=== PATIENT | male | born 1950 | race Caucasian/White ===

== ENCOUNTER 2020-02-22 04:15 | Inpatient (IN) ==
[2020-02-22] MEDS ORDERED: ASPIRIN 81 MG CHEW PO STA (04:27)
[2020-02-22] MEDS ORDERED: NITROGLYCERIN SL 0.4 MG/TAB TAB SL STA (04:27)
[2020-02-22] MEDS ORDERED: ASPIRIN CHEW 324 MG ONE (04:27)
--- NOTE | 2020-02-22 04:33 | Emergency Department Note ---
Impression & Plan Acute ST elevation myocardial infarction (STEMI) of inferior wall ED Provider Note Name: RENNY RAY Age: 69 Sex: M Arrives Via: Walk-In Informant: Patient, ED Provider: Price Thompson MD Chief Complaint: Chest Pain Impression: Acute ST Elevation Myocardial Infarction (STEMI) of inferior wall Medical Decision Making: Pleasant 69 yr old male with history COPD/DLP and family CAD history arrives with acute chest pain constant last few hours though intermittent the last few weeks. EKG with STEMI inferior. CXR unremarkable and pulses good. Unlikely Dissection and no DVT/PE risks. Heart alert called on EKG being obtained. Patient with HTN on arrival though after single nitro precipituous drop in BP, thus given just faint remaining pain further nitro held. ASA 324mg chew given. Patient stable, no distress throughout remainder ED stay. Hospitalist and Interventionalist evaluated patient and he was taken to manager laboratory for further management. Prior Medical Record and Triage/Nursing Notes reviewed by Me Additional history obtained from chart Differentials:Cardiac ischemia, aortic dissection, pulmonary embolism, pneumothorax, pneumonia, pericarditis, myocarditis, esophageal rupture, GERD, cholecystitis, pancreatitis, musculoskeletal, as well as other pathologies. Vital Signs: reviewed and remarkable for HTN Interventions: ASA 324mg PO, SLNTG x 1 Labs:Reviewed and remarkable for troponin elevation Imaging:X ray results are stated below per my interpretation: Chest: 1 view: No infiltrate, no effusion, normal cardiac border. Emphysemia EKG:Per My Interpretation: Indication Chest Pain: NSR 77 bpm, qtc 402. STEMI inferior. No ectopy. Compared to previous 10/10/18 STEMI is new. Cardiac/Tele Monitoring: Cardiac Monitoring: An Order was placed for continuous cardiac monitoring. The monitor shows a rate of 70 with a normal sinus rhythm. Consults:Dr Littlejohn, Dr Walker Plan: Disposition:Hospitalization. Condition: Fair Prescriptions:none PDMP: n/a History of Present Illness:69 yr old male with COPD, DLP, and smoking history arrives for evaluation of chest pain. Intermittent chest pain over last 2 weeks with exertion. Last 12 hours increasing intermittent without exertion. Worsening and not going away last few hours and came to ed. Substernal pressure like. Radiates bilateral neck. No back pain, abdominal pain, syncope, sob, palpitations, nausea, vomiting, leg swelling nor other symptoms. No medications prior to arrival. Exertion makes worse, rest makes better until this morning. No history CAD. Stress test 2 years ago reports negative. Mother and Brother with history heart disease. Patient denies PE/DVT risks. No trauma nor injuries. ROS: See above HPI for pertinent positives & negatives. A total of 10 systems reviewed and were otherwise negative. Past Medical History:COPD, DLP Past Surgical History:None Family History:Mother/Brother CAD, Father Cancer. 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 EYES: No scleral icterus, unremarkable pupils. ENT: Mucous membranes moist, no nasal congestion. NECK: No masses appreciated, nomeningismus, trachea is midline. RESPIRATORY: No dyspnea. Clear to auscultation and equal bilaterally. No wheeze, no rhonchi. CARDIOVASCULAR: Regular rate and rhythm.No murmurs, rubs, gallops appreciated. GASTROINTESTINAL: Abdomen soft, non-tender, no peritonitis.Bowel sounds positive.No masses appreciated. BACK: No midline tenderness, no CVA tenderness EXTREMITIES: Normal motion all extremities, no cyanosis, no edema. NEUROLOGIC: Alert and oriented, no acute motor or sensory deficits, no focal wea kness, cranial nerves grossly intact. SKIN: No rash, no jaundice, no diaphoresis. PSYCH: Appropriate GCS: 15 ED Course: Times/Reassessments: stable, pain to a 2/10 after nitro though BP dropped significantly Critical Care: I have personally spent 35 minutes of critical care time in the direct management of this patient. STEMI requiring Heart Alert activation and transfer to manager laboratory. This was a life/limb threatening event. This 35 minutes is in excess of all separately billable procedures. Price Thompson MD Past Med/Surg History Medical History (Updated 02/22/20 @ 04:56 by Price Thompson MD) COPD (chronic obstructive pulmonary disease) No pertinent family history Surgical History No pertinent past surgical history Family History Other No pertinent family history Social History Smoking Status: Current every day smoker Preferred Language: [place] Island[place] Communication Ability: Effective Visual Impairment: No Limitations Hearing Ability: Normal marital status: marital status details: Current Living Situation: Family Feels Safe at Home: Yes Allergies Allergies Allergy/AdvReac Type Severity Reaction Status Date / Time No Known Allergies Allergy Unverified 10/10/18 12:03 Home Meds Home Medications Medication Instructions Recorded Confirmed budesonide-formoterol [Symbicort] 1 puff INHALATION HS 10/10/18 10/10/18 ipratropium-albuterol [Combivent 1 puff INHALATION TID 10/10/18 10/10/18 Respimat] tiotropium bromide [Spiriva 2 puff INHALATION HS 10/10/18 10/10/18 Respimat] Results & Data (ED) Vital Signs Vital Signs - 24 hr 02/22/20 04:20 02/22/20 04:23 02/22/20 04:34 Temperature 36.7 C Temperature Source Oral Pulse Rate 78 79 Pulse Rate from SpO2 Sensor 77 Pulse Rhythm Regular Respiratory Rate 16 17 Respiratory Effort / Characteristics Non-Labored Spontaneous Respiratory Depth Normal Blood Pressure 172/96 H 172/96 H 122/79 Blood Pressure Mean 121 123 93 Pulse Oximetry 98 92 Oxygen Delivery Method Room Air Oxygen Flow Rate Sepsis Recent Fever Within 48 Hours No Sepsis New/Unexplained Change in Mental Status No Sepsis Action Taken by Nursing No Action Required Oxygen Flow Rate - Titration 94 02/22/20 04:38 02/22/20 04:40 02/22/20 04:50 Temperature Temperature Source Pulse Rate 79 80 74 Pulse Rate from SpO2 Sensor 78 78 74 Pulse Rhythm Respiratory Rate 25 H 18 17 Respiratory Effort / Characteristics Respiratory Depth Blood Pressure 111/79 111/69 127/82 Blood Pressure Mean 89 78 92 Pulse Oximetry 93 95 96 Oxygen Delivery Method Nasal Cannula Nasal Cannula Nasal Cannula Oxygen Flow Rate 2 2 2 Sepsis Recent Fever Within 48 Hours Sepsis New/Unexplained Change in Mental Status Sepsis Action Taken by Nursing Oxygen Flow Rate - Titration Laboratory Data Result diagrams: 02/22/20 04:38 02/22/20 04:38 Lab Results 02/22/20 02/22/20 02/22/20 Range/Units 04:38 04:38 04:38 WBC 10.01 (4.8-10.8) K/uL RBC 5.01 (4.7-6.1) M/uL Hgb 16.5 (14.0-18.0) g/dL Hct 48.8 (42-52) % MCV 97.4 (80-100) fL MCH 32.9 (25-34) pg MCHC 33.8 (32-36) g/dL RDW Std Deviation 49.7 H (36.4-46.3) fL RDW Coeff of Best 14.0 (11.5-14.5) % Plt Count 227 (130-400) K/uL MPV 11.1 H (7.4-10.4) fL Immature Gran % (Auto) 0.2 % Neut % (Auto) 76.7 % Lymph % (Auto) 13.9 % Bibb % (Auto) 7.7 % Eos % (Auto) 1.1 % Baso % (Auto) 0.4 % Neut # (Auto) 7.68 H (1.4-6.5) K/uL Lymph # (Auto) 1.39 (1.2-3.4) K/uL Bibb # (Auto) 0.77 H (0.11-0.59) K/uL Eos # (Auto) 0.11 (0-0.5) K/uL Baso # (Auto) 0.04 (0-0.2) K/uL Immature Gran # (Auto) 0.02 (0.00-0.02) K/uL PT 10.3 (9.0-12.0) Seconds INR 1.0 (0.9-1.1) APTT 27.2 (21.0-31.0) Seconds PTT Ratio 1.0 Sodium 142 (136-145) mmol/L Potassium 3.9 (3.5-5.1) mmol/L Chloride 110 H (98-107) mmol/L Carbon Dioxide 27 (21-32) mmol/L Anion Gap 5.0 (3-11) BUN 19 H (7-18) mg/dl Creatinine 1.10 (0.6-1.4) mg/dl Est Cr Clr Drug Dosing 55.1 ml/min Est GFR ( Amer) 79.0 Est GFR (Non-Af Amer) 68.1 BUN/Creatinine Ratio 17.4 (10-20) Glucose 123 H (70-99) mg/dl Calcium 9.0 (8.5-10.1) mg/dl Magnesium 2.5 H (1.8-2.4) mg/dl Total Bilirubin 0.2 (0.2-1) mg/dl Direct Bilirubin < 0.1 (0-0.2) mg/dl AST 21 (15-37) U/L ALT 33 (12-78) U/L Alkaline Phosphatase 142 H (45-117) U/L Troponin I 0.326 H* (0-0.045) ng/ml Total Protein 7.9 (6.4-8.2) gm/dl Albumin 4.1 (3.4-5.0) gm/dl Administered Medications Discontinued Medications Aspirin (Aspirin Chew 324 Mg) Confirm Administered Dose 324 mg .ROUTE .STK-MED ONE Stop: 02/22/20 04:28 Last Admin: 02/22/20 04:40 Dose: Not Given Documented by: [id number] Aspirin (Aspirin 81 Mg Chew) 324 mg PO NOW STA Stop: 02/22/20 04:28 Last Admin: 02/22/20 04:40 Dose: 324 mg Documented by: [id number] Atropine Sulfate (Atropine Sulfate 0.1 Mg/Ml 10ml Syr) Confirm Administered Dose 1 mg IV .STK-MED ONE Stop: 02/22/20 05:18 Last Admin: 02/22/20 05:40 Dose: 0.5 mg Documented by: [id number] Eptifibatide (Eptifibatide 2 Mg/Ml 10 Ml Vial (Film Or Tape Librarian Use Only)) Confirm Ad ministered Dose 20 mg IV .STK-MED ONE Stop: 02/22/20 05:25 Last Admin: 02/22/20 05:40 Dose: 6.2 ml Documented by: [id number] Eptifibatide (Eptifibatide 0.75 Mg/Ml 75mg Vial (Film Or Tape Librarian Use Only)) Confirm Administered Dose 75 mg .ROUTE .STK-MED ONE Stop: 02/22/20 05:28 Last Increment: 02/22/20 05:43 Dose: 10.7 mg Documented by: [id number] Eptifibatide (Eptifibatide 2 Mg/Ml 10 Ml Vial (Film Or Tape Librarian Use Only)) Confirm Administered Dose 20 mg IV .STK-MED ONE Stop: 02/22/20 05:35 Last Admin: 02/22/20 05:40 Dose: 6.2 ml Documented by: [id number] Fentanyl Citrate (Fentanyl Citrate 100 Mcg/2 Ml Vial) Confirm Administered Dose 100 mcg .ROUTE .STK-MED ONE Stop: 02/22/20 04:52 Last Increment: 02/22/20 05:44 Dose: 50 mcg Documented by: [id number] Heparin Sodium (Porcine) (Heparin (Porcine) 1000 Unit/Ml 10 Ml (Film Or Tape Librarian Use Only)) Confirm Administered Dose 10,000 units .ROUTE .STK-MED ONE Stop: 02/22/20 04:52 Last Admin: 02/22/20 05:44 Dose: 8,000 units Documented by: [id number] Heparin Sodium/Sodium Chloride (Heparin In Nss Infusion 1000 Unit/500 Ml (2 U/Ml) Bag) Confirm Administered Dose 3,000 units IV .STK-MED ONE Stop: 02/22/20 04:53 Last Admin: 02/22/20 05:39 Dose: 3,000 units Documented by: [id number] Midazolam HCl (Midazolam Hcl 1 Mg/Ml 2ml Vial) Confirm Administered Dose 2 mg .ROUTE .STK-MED ONE Stop: 02/22/20 04:53 Last Admin: 02/22/20 05:44 Dose: 2 mg Documented by: [id number] Nicardipine HCl (Nicardipine Hcl Inj 2.5 Mg/Ml 10 Ml Amp) Confirm Administered Dose 25 mg .ROUTE .STK-MED ONE Stop: 02/22/20 04:52 Last Admin: 02/22/20 05:39 Dose: 25 mg Documented by: [id number] Nitroglycerin (Nitroglycerin Sl 0.4 Mg/Tab Tab) 0.4 mg SL NOW STA Stop: 02/22/20 04:28 Last Admin: 02/22/20 04:40 Dose: 0.4 mg Documented by: [id number] Nitroglycerin/Dextrose (Nitroglycerin/D5w 100mcg/Ml 20ml Syr) Confirm Administered Dose 2,000 mcg .ROUTE .STK-MED ONE Stop: 02/22/20 04:53 Last Admin: 02/22/20 05:40 Dose: 2,000 mcg Documented by: [id number] Discharge Plan Visit Data Chief Complaint: Cardiac Assessment Stated Complaint: CHEST PAIN ED Provider: Price Thompson Discharge Problem: Acute ST elevation myocardial infarction (STEMI) of inferior wall Patient Disposition: Still a Patient Discharge Instructions Interventions: ED Discharge Assessment Last Done: 02/22/20 04:59
[2020-02-22 04:47] LABS: Basophils # (auto) 0.04 K/uL (0-0.2); Basophils % (auto) 0.4 %; Eosinophils # (auto) 0.11 K/uL (0-0.5); Eosinophils % (auto) 1.1 %; Hematocrit (blood only) 48.8 % (42-52); Hemoglobin 16.5 g/dL (14.0-18.0); Immature Granulocytes # (auto) 0.02 K/uL (0.00-0.02); Immature Granulocytes % (auto) 0.2 %; Lymphocytes # (auto) 1.39 K/uL (1.2-3.4); Lymphocytes % (auto) 13.9 %; Mean Corpuscular Hemoglobin 32.9 pg (25-34); Mean Corpuscular Hgb Conc 33.8 g/dL (32-36); Mean Corpuscular Volume 97.4 fL (80-100); Mean Platelet Volume 11.1 fL (7.4-10.4); Monocytes # (auto) 0.77 K/uL (0.11-0.59); Monocytes % (auto) 7.7 %; Neutrophils # (auto) 7.68 K/uL (1.4-6.5); Neutrophils % (auto) 76.7 %; Platelet Count 227 K/uL (130-400); RDW Standard Deviation 49.7 fL (36.4-46.3); Red Blood Count 5.01 M/uL (4.7-6.1); White Blood Count 10.01 K/uL (4.8-10.8)
[2020-02-22] MEDS ORDERED: fentaNYL citrate 100 MCG/2 ML VIAL ONE ×2 (04:51→05:47)
[2020-02-22] MEDS ORDERED: niCARdipine HCL INJ 2.5 MG/ML 10 ML AMP ONE (04:51)
[2020-02-22] MEDS ORDERED: HEPARIN (PORCINE) 1000 UNIT/ML 10 ML (CATH LAB USE ONLY) ONE (04:51)
[2020-02-22] MEDS ORDERED: NITROGLYCERIN/D5W 100MCG/ML 20ML SYR ONE (04:52)
[2020-02-22] MEDS ORDERED: MIDAZOLAM HCL 1 MG/ML 2ML VIAL ONE (04:52)
[2020-02-22 05:04] LABS: Alanine Aminotransferase 33 U/L (12-78); Albumin Level 4.1 gm/dl (3.4-5.0); Aspartate Aminotransferase 21 U/L (15-37); BUN Creatinine Ratio 17.4 (10-20); Bilirubin Direct < 0.1 mg/dl (0-0.2); Blood Urea Nitrogen 19 mg/dl (7-18); Carbon Dioxide 27 mmol/L (21-32); Chloride 110 mmol/L (98-107); Creatinine Clr Calc Pharmacy 55.1 ml/min; Est GFR (Non-African American) 68.1; Glucose 123 mg/dl (70-99); Magnesium 2.5 mg/dl (1.8-2.4); Potassium 3.9 mmol/L (3.5-5.1); Sodium 142 mmol/L (136-145)
[2020-02-22 05:05] LABS: Partial Thromboplastin Time 27.2 Seconds (21.0-31.0); Prothrombin Time 10.3 Seconds (9.0-12.0)
--- NOTE | 2020-02-22 05:06 | Pre Anesthesia Assessment ---
Date of Service February 22, 2020 Pre Sedation Assessment Vital Signs Temp Pulse Resp BP Pulse Ox 02/22/20 04:50 74 17 127/82 96 02/22/20 04:40 80 18 111/69 95 02/22/20 04:38 79 25 H 111/79 93 02/22/20 04:34 122/79 02/22/20 04:23 79 17 172/96 H 92 02/22/20 04:20 98.1 F 78 16 172/96 H 98 Cardiovascular RRR, no murmur, no edema Respiratory normal respiratory effort, lungs clear to auscultation Pre-Sedation Airway Assessment Smoking Status: Current every day smoker Hx Sleep Apnea: No Hx Difficult Intubation: No Short, Thick Neck: No Thyromental Distance: > or= 3.5 Finger Breadths Oral Cavity: + WNL Mallampati Class: III ASA: ASA4 Procedure Planning Contraindications for Sedation: none Current Medications Reviewed: Yes Notes The planned sedation has been discussed with the patient. Informed Consent was obtained. I have identified the patient, determined the appropriateness of sedation and have assessed the patient immediately prior to the procedure. All medicine(s) and interventions are by my order.
--- NOTE | 2020-02-22 05:08 | Cardiology Consultation ---
Date of Consultation February 22, 2020 Assessment & Plan (1) Acute ST elevation myocardial infarction (STEMI) of inferior wall: Presentation consistent with inferior STEMI and recommend proceeding with emergent cardiac catheterization and likely primary PCI. No apparent contraindications to procedure. Discussed risks, benefits, alternatives of procedure with patient and they are willing to proceed. Further recommendations pending findings of coronary angiography. History of Present Illness Attending Physician: Yusuf Walker MD History of Present Illness 69-year-old man here with acute chest pain and ECG concerning for acute NH. Patient seen emergently in the ED after heart alert activated upon arrival. No prior cardiac history. Cardiac risk factors include longstanding tobacco abuse, family history of coronary artery disease. Other medical issues include COPD. Chest pain began approximately 4 PM, about 12 hours prior to arrival. Describes substernal chest pain radiating to left arm that is been persistent since that time and preventing him from sleeping. Denies similar symptoms in the past. Chest pain at time of arrival 07/24. Hemodynamically stable. EKG showed inferior ST elevations. 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 Allergies Allergy/AdvReac Type Severity Reaction Status Date / Time No Known Allergies Allergy Unverified 10/10/18 12:03 Home Medications Home Medications Medication Instructions Recorded Confirmed Type budesonide-formoterol [Symbicort] 1 puff INHALATION HS 10/10/18 10/10/18 History ipratropium-albuterol [Combivent 1 puff INHALATION TID 10/10/18 10/10/18 History Respimat] tiotropium bromide [Spiriva 2 puff INHALATION HS 10/10/18 10/10/18 History Respimat] Patient History Medical History (Updated 02/22/20 @ 04:56 by Price Thompson MD) COPD (chronic obstructive pulmonary disease) No pertinent family history Surgical History No pertinent past surgical history Family History Other No pertinent family history Social History Smoking Status: Current every day smoker Preferred Language: Turkmen Communication Ability: Effective Visual Impairment: No Limitations Hearing Ability: Normal marital status: marital status details: Current Living Situation: Family Feels Safe at Home: Yes Review of Systems Review of Systems: Not obtained the setting of emergent situation Physical Exam Physical Exam: General: Uncomfortable, no acute distress HEENT: Sclerae anicteric, mucous membranes moist Lungs: Clear to auscultation bilaterally Cardiac: Regular rate and rhythm, no murmurs. Abdomen: Soft, nontender, nondistended, positive bowel sounds. Extremities: Warm, well perfused, no edema. 2+ radial pulses Skin: No rashes or lesions. Neuro: Nonfocal Psych: Alert orient x3, normal affect and mood Results & Data ([facility]) Vital Signs (Past 12 Hours) Vital Signs Temp Pulse Resp BP Pulse Ox 02/22/20 04:50 74 17 127/82 96 02/22/20 04:40 80 18 111/69 95 02/22/20 04:38 79 25 H 111/79 93 02/22/20 04:34 122/79 02/22/20 04:23 79 17 172/96 H 92 02/22/20 04:20 98.1 F 78 16 172/96 H 98 PG Care Time/CCT Total # of Minutes Spent Total Time Spent with Patient: Total time spent is greater than 50% in coordination of care (as documented) at patient's floor/unit and/or counseling p atient: Coding Level of Care Code 79352 Inpt Consult Level [address] elevation myocardial infarction (STEMI) of inferior wall I21.19
[2020-02-22] MEDS ORDERED: ATROPINE SULFATE 0.1 MG/ML 10ML SYR IV ONE (05:17)
[2020-02-22] MEDS ORDERED: EPTIFIBATIDE 2 MG/ML 10 ML VIAL (CATH LAB USE ONLY) IV ONE ×2 (05:24→05:34)
[2020-02-22] MEDS ORDERED: EPTIFIBATIDE 0.75 MG/ML 75MG VIAL (CATH LAB USE ONLY) ONE (05:27)
[2020-02-22 05:35] LABS: Alkaline Phosphatase 142 U/L (45-117); Bilirubin,Total 0.2 mg/dl (0.2-1); Total Protein 7.9 gm/dl (6.4-8.2); Troponin I 0.326 ng/ml (0-0.045)
--- NOTE | 2020-02-22 05:36 | History & Physical Report ---
Date of Service February 22, 2020 Assessment & Plan (1) Cigarette smoker: Inferior STEMI Status post cath and 1 MARIA GUADALUPE to RCA Will start atorvastatin, ASA, Aime inhibitor and beta jose as tolerated Got atropine during procedure will monitor bradycardia and hypotension given inferior AR as well as other post infarction arrhythmias in ICU for now Will trend troponins, possibly follow up cath for left circumflex non culprit lesion as outpatient or later in this admission Will need to be counseled on cardiovascular risk factors and lifestyle changes COPD and Tobacco Abuse Continuing home breo ellipta, ipratropium bromide scheduled and albuterol as needed for COPD Patient somewhat restricted on exam but is at his baseline in terms of breathing per patient IMportant to encourage complete abstinence form smoking both for prevention of worsening COPD and CAD DVT PPx: lovenox F/E/N: Heart Healthy Diet Dispo: ICU s/p catheterization Full code (2) S/P drug eluting coronary stent placement: (3) S/P PTCA (percutaneous transluminal coronary angioplasty): (4) Acute ST elevation myocardial infarction (STEMI) of inferior wall: (5) Admitted to intensive care unit: (6) COPD (chronic obstructive pulmonary disease): History of Present Illness Chief Complaint: Chest Pain Primary Care Provider: NO PCP Altagracia Johnathan Burroughs is a 69 year old man with a past medical history significant for COPD not on home O2, dyslipidemia, and a family history of CAD brother and mother both with AR's in their sixties, who presented with substernal chest pain moving into left arm. 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 He attributed this to gas pain but it was becoming more and more frequent and this morning it was not going away. He called the [facility] and they recommended that he present to the emergency department. On presentation to ED patient found to have vitals WNL, ECG showing textbook acute inferior AR with large ST elevations is II III and aVF, Lab work significant for troponin of .326. A heart alert was called and patient was taken to the laboratory immunologist with Dr. 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 1 MARIA GUADALUPE was placed in RCA. Also with moderate stenosis of Left circumflex artery but appeared to be non culprit lesion and was not stented. Patient was admitted to ICU for further monitoring. Allergies Allergy/AdvReac Type Severity Reaction Status Date / Time No Known Allergies Allergy Unverified 10/10/18 12:03 Home Medications Home Medications Medication Instructions Recorded Confirmed Type budesonide-formoterol [Symbicort] 1 puff INHALATION HS 10/10/18 10/10/18 History ipratropium-albuterol [Combivent 1 puff INHALATION TID 10/10/18 10/10/18 History Respimat] tiotropium bromide [Spiriva 2 puff INHALATION HS 10/10/18 10/10/18 History Respimat] Past Med/Surg History Medical History COPD (chronic obstructive pulmonary disease) No pertinent family history Surgical History No pertinent past surgical history Family History Other No pertinent family history Social History Smoking Status: Current every day smoker Cigarettes Per Day: 15; Hx Alcohol Use: No Hx Substance Use: No Preferred Language: Syriac Communication Ability: Effective Visual Impairment: No Limitations Hearing Ability: Normal Policy Writer Sales Required: No Beliefs That Will Affect Care: None marital status: marital status details: Current Living Situation: Spouse Other Information That Helps Us Care for You: No Feels Safe at Home: Yes and No Is there a partner from a previous relationship who is making you feel unsafe now?: No Any Concerns about Your Family Situation: No Would You Like to Speak to Someone About Your Situation: No Safety Concerns: Feels Safe At This Time Assistive Devices: None Review of Systems Review of Systems: All systems reviewed & are unremarkable except as noted in HPI & below Physical Exam Constitutional: WD/WN, vitals as above Eyes: PERRL, conjunctivae normal, anicteric sclerae ENMT: external ear and nose normal, oropharynx normal Respiratory: normal respiratory effort, lungs clear to auscultation Cardiovascular: RRR, no murmur, no edema Gastrointestinal (Abdomen): normal bowel sounds, soft, nontender, no hepatosplenomegaly Skin: Pressure bandage in place around right wrist site of access for Catheterization, missing distal portion of right second digit Results & Data Results & Data ([facility]) Vital Signs (Past 12 Hours) Vital Signs Temp Pulse Resp BP Pulse Ox 02/22/20 04:50 74 17 127/82 96 02/22/20 04:40 80 18 111/69 95 02/22/20 04:38 79 25 H 111/79 93 02/22/20 04:34 122/79 02/22/20 04:23 79 17 172/96 H 92 02/22/20 04:20 36.7 C 78 16 172/96 H 98 Critical Care Time Critical Care Time: Yes Total Critical Care Time: 40 Total critical care time 40 minutes Supervising Physician Co-Signing Physician Notes Attending addendum: I have physically seen this patient, have supervised the medical residents activ ities, and agree with the H&P unless as otherwise noted. Assessment and Plan: Inferior wall STEMI/heart alert- Taken to emergency catheterization, with 1 MARIA GUADALUPE to RCA. Admitted to intensive care unit post-cath Start high intensity atorvastatin, aspirin, AIME inhibitor and beta-jose per interventional cardiology COPD/tobacco use disorder- Cessation counseling Continue home Breo ellipta, and DuoNebs as needed Remaining orders and notations as noted
[2020-02-22] MEDS ORDERED: TICAGRELOR 90 MG TAB PO ONE (05:47)
[2020-02-22] MEDS ORDERED: ACETAMINOPHEN 325 MG TAB PO PRN (06:00)
[2020-02-22] MEDS ORDERED: EPTIFIBATIDE 75 MG/100 ML VIAL IV SCH (06:00)
[2020-02-22] MEDS ORDERED: ONDANSETRON INJ 2 MG/ML 2 ML VIAL IV PRN (06:00)
[2020-02-22] MEDS ORDERED: EPTIFIBATIDE BOLUS/DRIP IV STA (06:00)
[2020-02-22] MEDS ORDERED: NITROGLYCERIN SL 0.4 MG/TAB TAB SL PRN (06:00)
[2020-02-22] MEDS ORDERED: ICU PROTOCOL FOR HYPERGLYCEMIA PRN ×2 (06:00→06:06)
[2020-02-22] MEDS ORDERED: SODIUM CHLORIDE 0.9% 1000ML 1,000 ML IV SCH (06:00)
--- NOTE | 2020-02-22 06:00 | Post Anesthesia Assessment ---
Date of Service February 22, 2020 Post Sedation Assessment Vital Signs Temp Pulse Resp BP Pulse Ox 02/22/20 04:50 74 17 127/82 96 02/22/20 04:40 80 18 111/69 95 02/22/20 04:38 79 25 H 111/79 93 02/22/20 04:34 122/79 02/22/20 04:23 79 17 172/96 H 92 02/22/20 04:20 98.1 F 78 16 172/96 H 98 Recovery Score Activity: Moves 4 extremities Respiration: Deep Breath/Cough Circulation: +/-20% PreAnes Value Consciousness: Fully Awake Oxygen Saturation: O2 needed for >90% Discharge Sedation Level of Care: Fast Track Phase II Post Sedation Plan On clinical assessment, the patient appears to have tolerated the sedation without complications. Patient is recovering as anticipated. Patient will continue to be monitored by nursing and may be discharged when sedation discharge criteria are met per below protocol. Upon Completions of procedure up to 15 minutes continue every 5 minute vital signs and the P.A.R. score; then discharge to a Phase I or Fast Track to Phase II per the following guidelines: * Discharge Patient to appropriate Phase II area if PAR is 8 or greater or return to pre- procedure baseline. The post - procedure orders will be as directed. * If PAR score is less than 8 or not return to pre-procedure baseline then patient will follow Phase I monitoring till PAR is reached for Phase II. The Phase I may be done in procedure room or may call to secure a Phase I area. * If naloxone or flumazenil are used for reversal, hold in Phase I for continued monitoring from when last reversal dose was given for a minimum of 60 minutes or longer pending the nurse and/or physician discretion of patient condition before discharge to Phase II. Please call the Sedation Physician to re-evaluate and complete post-note for discharge to Phase II area. Do NOT discharge from procedure sedation or Phase 1 until post- sedation evaluation note is complete by procedure /sedation MD Sedation Discharge Instructions to be given to the patient at discharge to home.
--- NOTE | 2020-02-22 06:18 | Cardiac Catheterization ---
[facility] Data: Controls Project Engineer Cardiac Status Clinical evaluation leading to the procedure CAD Presenation: STEMI Anginal Classification: CCS IV Cardiogenic Shock within 24 Hours: No Cardiac Arrest within 24 Hours: No Imaging Studies Past 6 Months: Yes Stress Studies Past 6 Months: No Diagnostic Physicians Name: Yusuf Walker MD Status: Emergency Closure Device Percutaneous Entry Location: Radial Closure Device: Radial Band Recommendations: PCI without planned CABG PCI Indication: Immediate PCI for STEMI First Noted: First EKG Lesion Segment Name: mid RCA Culprit Artery: Yes Stenosis Prior to Rx (%): 100 Chronic Total Occlusion: No IVUS: No FFR: No Pre-Procedure AILYN Flow: 0 Previously Treated Lesion: No Lesion Complexity: Non-High/Non-C Lesion Length (mm): 33 Thrombus Present: Yes Bifurcation Lesion: No Guidewire Across Lesion: Stenosis Post-Procedure (%): 0 Post-Procedure AILYN Flow: 3 Devices(s) Deployed: Yes Yes Intraprocedure Events Significant Disection: No Perforation: No Cardiac Cath Procedure Full Procedure Date February 22, 2020 Pre-Procedure Diagnosis Pre-Procedure Diagnosis: STEMI AUC Score AUC Score: 9 Post-Procedure Diagnosis Post-Procedure Diagnosis: Severe CAD, Successful PCI and Normal Intracardiac Pressures Procedure(s) Performed Procedure(s) Performed: Coronary Angiography, Left Heart Cath and Drug Eluting Stent Senior Nurse Manager Yusuf Walker MD News Gathering Technician(s) Venus Estimated Blood Loss Estimated Blood Loss: 15 Medication(s) Medication(s): Fentanyl, Heparin, Integrilin, Lidocaine 1%, Nicardipine, Nitroglycerin and Versed Medication(s): Ticagrelor Summary of Findings Indication: STEMI/Heart Alert Access: 6Fr Right radial artery Catheters: IKari 3.5 guide, pigtail Findings: LM -medium caliber, angiographically normal LAD -medium caliber vessel, proximal luminal irregularities, 20 to 30% mid stenosis at takeoff of second diagonal. Distal luminal regularities 60% apex. Medium caliber second diagonal without significant disease. Circumflex -medium caliber, 70% mid segment stenosis. Medium caliber OM 2 without significant disease RCA -dominant, calcified, 30 to 40% proximal, diffuse 40%/ectatic disease in the midsegment prior to 100% latemid 100% acute on chronic occlusion. Distal vessel partially fills via uejz-pq-exuit collaterals. LVEDP -18 -- PCI -- Antithrombotic therapy: Heparin, ticagrelor Procedure: RCA cannulated with IKari 3.5 guide Finished Yarn Examiner 50 wire passed across lesion into distal vessel Mid RCA lesion predilated with 2.5 compliant balloon Dilated lesion stented with 3.5 x 38 mm Vamsi drug-eluting stent Transient hypotension and bradycardia treated with fluid bolus, atropine Residual ST elevations, chest discomfort and started on IC/IV Integrilin Stent post-dilated with 3.75 noncompliant balloon IC vasodilators administered for spasm Post procedure AILYN 3 flow, stent well expanded with minimal residual stenosis and no apparent cardiac complications. Arterial Closure: TR band Summary: 1. Inferior STEMI/100% acute on chronic mid RCA occlusion 2. Severe non-culprit coronary artery disease -70% mid circumflex 3. Normal intracardiac filling pressure 4. Successful PCI of mid to distal RCA with single drug-eluting stent (3.5 x 38 mm [place]; postdilated with 3.75 NC). Recommendations: Admit to ICU for continued monitoring Loaded with ticagrelor 180 mg in Controls Project Engineer Continue Integrilin infusion for 3 hours Continue dual-antiplatelet therapy for at least 1 year. Trend troponins until peak, Check Echo Uptitrate beta-jose/EVELINE as BP allows High-dose statin Consult cardiac Rehab Plan for staged PCI of mid circumflex later in hospitalization, likely tomorrow. Hemodynamics Rest Ao:: 126/66/94 Final Ao: 90/57/72 LV: 88/18 Recommendations Recommendations: PCI without planned CABG Specimens Specimens: None Radiation Exposure (mGy) 599 Contrast (mls) 90 Fluids (cc crystalloids) Fluids (cc crystalloids): 480 Drains Drains: none Anesthesia moderate Procedural Complication(s) None Disposition ICU I attest to the content of the Intraoperative Record and any orders documented therein. Any exceptions are noted below. [facility] Card Cath Procedure Codes Cardiac Catheterization Procedure 1: Cardiovascular Cath Procedures: 91105 Coronaries and LHC (+/-LV) Moderate Sedation Procedure 1: Sedation/Anesthesia: 10119 Mod Sedation by the same physician;Init15 Min Child Age 5 & Up Procedure 2: Sedation/Anesthesia: 87635 Mod Sedation by the same physician; Ea [id number] Minutes Stenting Procedure 1: Cardiovascular Stent Procedures: 24594 Perc transluminal revascularization of acute sub/total occl, aMI PG Care Time/CCT Total # of Minutes Spent Total Time Spent with Patient: Total time spent is greater than 50% in coordination of care (as documented) at patient's floor/unit and/or counseling patient:
--- NOTE | 2020-02-22 06:21 | Critical Care Consultation ---
Date of Consultation February 22, 2020 Assessment & Plan (1) Admitted to intensive care unit: Reason Critically Ill: 69-year-old male presenting with an acute inferior STEMI who is status post PTCA with MARIA GUADALUPE x1 to the RCA requiring close hemodynamic monitoring status post coronary intervention. NEURO - * CAM ICU: NEGATIVE CARDIAC/VASCULAR - * Acute Inferior STEMI s/p PTCA w/ DESx1 to the RCA: * Received IVF and atropine intraprocedurally. Monitor closely for any bradycardic/hypotensive episodes s/p RCA intervention. * 70% Mid cirx lesion noted. To be addressed later in hospital course. * AM Echo * Trend Trops * ASCVD Rx per typical. * Encourage smoking cessation. * EKG: NSR @ 77bpm. ST elevations inferiorly. QTc 402 ms. * Monitor on telemetry. RESPIRATORY - * COPD: * Will add on home treatments. * Encourage smoking cessation. * Supplemental O2 PRN. GI/NUTRITION - * AHA diet RENAL/LYTES - * No significant electrolyte derangements. - * No concerns at this time. ENDO - * No h/o DM or Thyroid Dz * BSGs per unit protocol. ISS --> gtt per unit policy. HEME - * Stable H&H * Monitor for s/s bleeding during Integrilin gtt. ID - * No concerns for infection at this time. LINES/IV ACCESS - * PIVs x2 DVT PROPHYLAXIS - * Hold on chemoprophylaxis s/p Brilinta/Integrilin gtt. * SCDs I have personally spent 32 minutes of critical care time in the direct management of this patient. This is a life/limb threatening event. This includes time spent evaluating patient, direct bedside care, chart review, placing orders, interpretation of diagnostic studies, discussion with consultants, patient, and family members, as well as other required patient management activities. This time is exclusive of all separately billable procedures, and teaching time and separate from and in addition to any other critical care service time. Thank you for allowing us to participate in the care of this patient. Please refer to my attending physician's documentation for any further recommendations. (2) Acute ST elevation myocardial infarction (STEMI) of inferior wall: (3) COPD (chronic obstructive pulmonary disease): (4) S/P PTCA (percutaneous transluminal coronary angioplasty): (5) S/P drug eluting coronary stent placement: (6) Cigarette smoker: Supervising Physician Co-Signing Physician Notes Patient seen and examined. EMR reviewed. Discussed with critical care MARTHA. Patient presented with ST elevation myocardial infarction was taken to the [facility] and had a drug-eluting stent placed to the mid RCA. He was admitted to the ICU post procedure. He did require 1 dose of atropine as well as some IV fluid s. He had an episode of chest discomfort this morning requiring additional IV nitro which resulted in. He has an additional lesion and will require a staged procedure before dismissal from the hospital. Continue his antiplatelet agents. He tolerated a low-dose beta-jose. Holding EVELINE inhibitor given his. Will allow him to use his home Combivent. He will need cardiac rehab after discharge. Discussed with ICU nurse and on multidisciplinary rounds as well as pharmacist. History of Present Illness Attending Physician: Yusuf Walker MD History of Present Illness Patient is a 69-year-old male with a significant past medical history of COPD and tobacco abuse who presented to the emergency department this morning with approximately 12-hour history of chest discomfort and dyspepsia. Upon arrival in the emergency department, the patient had an EKG performed which demonstrated an acute inferior STEMI. Heart alert was called and the patient was taken emergently to the catheterization suite. Patient was noted to have an acutely occluded 100% RCA which was successfully stented with a drug-eluting stent x1. Patient was also noted to have severe non-culprit 70% mid circumflex stenosis. Patient received fluids and atropine intra-procedurally secondary to hypotension and bradycardia. He is currently on Integrilin drip at this time. Upon evaluation in the ICU, the patient is awake, alert, and oriented. He denies any complaints of chest pain at this time rated his discomfort is 0/10. Patient denies any current headaches, dizziness, lightheadedness, vision changes, chest pain, palpitations, pleuritic pain, nausea, vomiting, or abdominal pain. Allergies Allergy/AdvReac Type Severity Reaction Status Date / Time No Known Allergies Allergy Unverified 10/10/18 12:03 Home Medications Home Medications Medication Instructions Recorded Confirmed Type budesonide-formoterol [Symbicort] 1 puff INHALATION HS 10/10/18 10/10/18 History ipratropium-albuterol [Combivent 1 puff INHALATION TID 10/10/18 10/10/18 History Respimat] tiotropium bromide [Spiriva 2 puff INHALATION HS 10/10/18 10/10/18 History Respimat] Patient History Medical History COPD (chronic obstructive pulmonary disease) No pertinent family history Surgical History No pertinent past surgical history Family History Other No pertinent family history Social History Smoking Status: Current every day smoker Cigarettes Per Day: 15; Hx Alcohol Use: No Hx Substance Use: No Preferred Language: Kazakh Communication Ability: Effective Visual Impairment: No Limitations Hearing Ability: Normal Grades 1 Through 6 Teacher Required: No Beliefs That Will Affect Care: None marital status: marital status details: Current Living Situation: Spouse Other Information That Helps Us Care for You: No Feels Safe at Home: Yes and No Is there a partner from a previous relationship who is making you feel unsafe now?: No Any Concerns about Your Family Situation: No Would You Like to Speak to Someone About Your Situation: No Safety Concerns: Feels Safe At This Time Assistive Devices: None Review of Systems Review of Systems: A complete 10 point review of systems was reviewed with the patient with pertinent positives and negatives as per history of present illness. All else were negative. Physical Exam Physical Exam: VITAL SIGNS - Vital signs and nursing notes were reviewed. GENERAL - 69-year-old male appearing his stated age who is in no acute distress. Communicates well with provider and answers questions appropriately. HEAD - NC/AT. EYES - PERRL with EOMI bilaterally. Sclera anicteric. EARS - No deformities of external structures noted on gross examination bilaterally. NOSE - Midline and without cyanosis. No epistaxis or purulent drainage noted. MOUTH/OROPHARYNX - Without perioral cyanosis. NECK - Neck with FROM. LUNGS - Chest wall symmetric without accessory muscle use, intercostals retractions, or central cyanosis. Normal vesicular breath sounds CTA B/L. No wheezes, rales, or rhonchi appreciated. CARDIAC - RRR with S1/S2. No murmur, rubs, or gallops appreciated. No reproducible tenderness to palpation appreciated over the anterior chest wall. ABDOMEN - Abdominal contour flat without pulsations or visible masses. BS normoactive all four quadrants. No tenderness, palpable masses, hepatosplenomegaly, or ascites noted. EXTREMITIES - No clubbing or peripheral cyanosis. No pretibial edema present. +3/5 radial and dorsalis pedis pulses palpated throughout. +5/5 strength noted in UE/LE bilaterally. NEUROLOGIC - Cranial nerves II through XII grossly intact. Sensory intact to light touch throughout. PSYCH - A&Ox3 and cooperates fully with examiner. Pt is very pleasant and interacts well with examiner. Results & Data Results & Data ([facility]) Vital Signs (Past 12 Hours) Vital Signs Temp Pulse Resp BP Pulse Ox 02/22/20 04:50 74 17 127/82 96 02/22/20 04:40 80 18 111/69 95 02/22/20 04:38 79 25 H 111/79 93 02/22/20 04:34 122/79 02/22/20 04:23 79 17 172/96 H 92 02/22/20 04:20 36.7 C 78 16 172/96 H 98 Coding Level of Care Code Critical Care 1st 30-74 mins Diagnoses Admitted to intensive care unit Z78.[address] elevation myocardial infarction (STEMI) of inferior wall I21.19 COPD (chronic obstructive pulmonary disease) J44.9 S/P PTCA (percutaneous transluminal coronary angioplasty) Z98.61 S/P drug eluting coronary stent placement Z95.5 Cigarette smoker F17.210 Time Spent (min) 32
[2020-02-22] MEDS ORDERED: ALBUTEROL HFA 8 GM INHALER INH SCH (07:00)
[2020-02-22] MEDS ORDERED: IPRATROPIUM BROMIDE HFA INHALER INH SCH (07:00)
--- NOTE | 2020-02-22 07:55 | XRay Report ---
XR chest 1V portable CLINICAL HISTORY: Atypical chest pain COMPARISON STUDY: No previous studies for comparison. FINDINGS: The patient appears hyperinflated. The heart is normal in size. There is no failure. There is no focal pulmonary consolidation. There are no pleural effusions. Advanced arthritic changes are p resent in the right shoulder.[ IMPRESSION: Hyperinflation. No acute findings. ACT 112: Negative or not required by law. Electronically signed by: Freddie Brian M.D. 02/22/2020 7:54 AM
[2020-02-22] MEDS: ATORVASTATIN 40 MG TAB PO SCH (08:05)
[2020-02-22] MEDS: METOPROLOL TARTRATE 25 MG TAB PO SCH ×2 (08:05→20:20)
[2020-02-22] MEDS ORDERED: ASPIRIN 81 MG ECTAB PO SCH (09:00)
[2020-02-22] MEDS ORDERED: MoRPHine SULFATE 2 MG/ML CARP IV PRN (09:36)
[2020-02-22] MEDS ORDERED: MoRPHine SULFATE 2 MG/ML CARP IV STA (09:37)
[2020-02-22] MEDS: ENOXAPARIN INJ 40 MG/0.4 ML SYR SQ SCH (12:08)
--- NOTE | 2020-02-22 14:52 | XCELERA ---
[id number] \\[id number]_[id number]
--- NOTE | 2020-02-22 16:02 | Hospitalist Progress Note ---
Date of Service February 22, 2020 Assessment & Plan (1) Cigarette smoker: Altagracia Burroughs is a 69yo male with COPD and dyslipidemia who presented to the ED today with an inferior STEMI. Received atropine during an episode of bradycardia and hypotension during catheterization. Currently in ICU but doing well and largely symptom-free. Inferior STEMI -s/p catheterization, placement of one drug-eluting stent to RCA -s/p atropine during catheterization for hypotension to 70/40's and bradycardia to 30's; pressures 89-121/58-73 since then -discontinued eptifabatide drip -brilinta 90mg PO bid -ASA 81mg qd -atorvastatin 80mg qAM -metoprolol tartrate 12.5mg PO bid -lisinopril 5mg PO qpm -morphine sulfate 2mg IV q2h prn -nitroglycerin 0.4mg SL prn -ondansetron 4mg IV q6h prn -trending troponins; 0.326 at 04:38, then 176 at 11:57 -counseling on cardiovascular risk factors, lifestyle and behavioral modifications -TTE performed today COPD, nicotine dependence -continue home breo ellipta qd -continue home ipratropium bromide -continue home albuterol prn -will certified alcohol drug counselor on smoking cessation Dyslipidemia -statin as above FENGI: heart healthy diet DVT prophylaxis: lovenox Code status: full code Dispo: ICU (2) S/P drug eluting coronary stent placement: (3) S/P PTCA (percutaneous transluminal coronary angioplasty): (4) Acute ST elevation myocardial infarction (STEMI) of inferior wall: (5) Admitted to intensive care unit: (6) COPD (chronic obstructive pulmonary disease): Admission and Anticipated Discharge Date Admission Date: February 22, 2020 Supervising Physician Co-Signing Physician Notes I saw the patient independent of the resident physician and confirmed lee portions of the history and physical examination. I agree with the impression and plan in the resident note. I saw the patient this morning at 9 AM, he was resting comfortably in bed without complaint. He was on Integrilin drip although this has since been discontinued. Blood pressure 128/69, pulse 85, respiratory 20, temperature 36.7 C, pulse oximetry 92% on room air. Acute inferior wall STEMI status post PTCA with drug-eluting stent x1 to the RCA Management primarily per cardiology Echocardiogram this morning is pending COPD with ongoing tobacco abuse All medications Counseling regarding tobacco cessation Additional as noted in resident documentation Subjective Altagracia Burroughs is a 69yo male with COPD, dyslipidemia, and a family history of CAD (mother/brother MS's in their sixties) who presented with substernal chest pain radiating to the left arm, and EKG findings of an acute inferior STEMI before elliot today. Patient was seen at the bedside this morning around 9:20. He was laying in bed and endorsed mild chest pressure and pain radiating to his left jaw. A repeat EKG was performed and reflected an evolving inferior infarct but did not show new changes concerning for reinfarction. He denies headache, nausea, vomiting, abdominal pain, dizziness, lightheadedness, change in vision or hearing, fever, or other symptoms. Review of Systems Constitutional: no fever and no chills Respiratory: no cough and no wheezing Cardiovascular: no palpitations and no edema Gastrointestinal: no abdominal pain, no nausea and no vomiting Genitourinary: no dysuria and no urinary frequency Neurologic: no numbness and no paresthesia Physical Exam Constitutional: no acute distress and not ill appearing Respiratory: normal respiratory effort, lungs clear to auscultation Cardiovascular: RRR, no murmur, no edema Vessels: no JVD and no carotid bruit Gastrointestinal (Abdomen): normal bowel sounds, soft, nontender, no hepatosplenomegaly Neurologic: CN's II-XI intact bilaterally Results & Data Results & Data ([facility]) Vital Signs (Past 12 Hours) Vital Signs Temp Pulse Pulse Resp BP BP Pulse Ox 02/22/20 14:08 70 21 101/64 93 02/22/20 13:07 70 21 112/65 92 02/22/20 12:02 79 27 H 109/70 92 02/22/20 11:32 109 H 19 95/62 L 94 02/22/20 11:02 74 24 121/73 93 02/22/20 10:32 70 18 104/69 95 02/22/20 09:58 69 19 101/64 96 02/22/20 09:43 69 18 100/65 96 02/22/20 09:41 70 20 111/71 94 02/22/20 09:36 68 15 89/58 L 93 02/22/20 09:31 84 17 97/58 L 93 02/22/20 09:26 69 27 H 105/70 95 02/22/20 08:56 78 18 103/67 94 02/22/20 08:37 36.7 C 02/22/20 08:24 69 25 H 107/60 93 02/22/20 08:09 80 21 100/69 100 02/22/20 08:02 66 19 96 02/22/20 08:00 69 02/22/20 07:54 70 21 105/68 92 02/22/20 07:39 68 20 111/70 96 02/22/20 07:24 67 23 88/61 L 02/22/20 07:09 65 20 98/67 L 96 02/22/20 06:55 70 18 94 02/22/20 06:53 66 22 113/59 L 94 02/22/20 06:50 70 23 94 02/22/20 06:45 68 25 H 95 02/22/20 06:40 69 24 93 02/22/20 06:39 67 22 91/60 L 96 02/22/20 06:35 69 31 H 93 02/22/20 06:30 70 17 89 L 02/22/20 06:25 74 24 90 02/22/20 06:24 69 19 99/65 L 93 02/22/20 06:21 69 12 92 02/22/20 06:19 71 17 108/59 L 93 02/22/20 06:15 70 20 89 L 02/22/20 06:10 72 21 02/22/20 06:09 74 17 02/22/20 06:08 36.8 C 89/57 L 02/22/20 06:05 36.8 C 67 70 20 108/59 L 93 02/22/20 04:50 74 17 127/82 96 02/22/20 04:40 80 18 111/69 95 02/22/20 04:38 79 25 H 111/79 93 02/22/20 04:34 122/79 02/22/20 04:23 79 17 172/96 H 92 02/22/20 04:20 36.7 C 78 16 172/96 H 98 Resident Activity Tracking Resident Involvement: Resident Care Provided Care Provided: Adult Hospital Medicine
[2020-02-22] MEDS: TICAGRELOR 90 MG TAB PO SCH (17:05)
--- NOTE | 2020-02-22 17:45 | Electrocardiogram Report ---
Test Reason : Blood Pressure : / mmHG Vent. Rate : 077 BPM Atrial Rate : 077 BPM P-R Int : 174 ms QRS Dur : 100 ms QT Int : 356 ms P-R-T Axes : 083 084 098 degrees QTc Int : 402 ms Poor data quality, interpretation may be adversely affected Normal sinus rhythm Inferior infarct , possibly acute T wave abnormality, consider lateral ischemia ACUTE [place] / STEMI Consider right ventricular involvement in acute inferior infarct Abnormal ECG When compared with ECG of 10-OCT-2018 11:53, Inferior infarct is now Present ST elevation now present in Inferior leads ST now depressed in Anterolateral leads T wave inversion now evident in Anterolateral leads Confirmed by Yusuf Romano ([id number]) on 02/22/2020 5:44:38 PM Referred By: REFERRED SELF Confirmed By:Julius Romano
--- NOTE | 2020-02-22 17:51 | Electrocardiogram Report ---
Test Reason : Blood Pressure : / mmHG Vent. Rate : 072 BPM Atrial Rate : 072 BPM P-R Int : 160 ms QRS Dur : 078 ms QT Int : 374 ms P-R-T Axes : 080 045 091 degrees QTc Int : 409 ms Normal sinus rhythm Inferior infarct (cited on or before 22-FEB-2020) ACUTE [place] / STEMI Consider right ventricular involvement in acute inferior infarct Abnormal ECG When compared with ECG of 22-FEB-2020 06:10, (unconfirmed) Serial changes of evolving Inferior infarct Present Confirmed by Yusuf Romano ([id number]) on 02/22/2020 5:51:08 PM Referred By: REFERRED SELF Confirmed By:Julius Romano
--- NOTE | 2020-02-22 18:03 | Electrocardiogram Report ---
Test Reason : Blood Pressure : / mmHG Vent. Rate : 074 BPM Atrial Rate : 074 BPM P-R Int : 180 ms QRS Dur : 088 ms QT Int : 380 ms P-R-T Axes : 084 062 084 degrees QTc Int : 421 ms Normal sinus rhythm Inferior infarct (cited on or before 22-FEB-2020) ACUTE [place] / STEMI Consider right ventricular involvement in acute inferior infarct Abnormal ECG When compared with ECG of 22-FEB-2020 04:23, (unconfirmed) Serial changes of evolving Inferior infarct Present Confirmed by Yusuf Romano ([id number]) on 02/22/2020 6:02:50 PM Referred By: REFERRED SELF Confirmed By:Julius Romano
[2020-02-22] MEDS: IPRATROPIUM BROMIDE/ALBUTEROL respimat INH INH SCH ×2 (19:06→20:19)
[2020-02-22] MEDS: UMECLIDINIUM BROMIDE 62.5MCG/BLISTER 7 PUFFS/INHALER INH SCH (20:19)
[2020-02-22] MEDS: FLUTICASONE/VILANTEROL 100/25MCG 14 PUFFS/INHALER INH SCH (20:19)
[2020-02-22] MEDS: lisinopriL 5 MG TAB PO SCH (20:21)
--- NOTE | 2020-02-23 01:57 | Billing Data ---
Date of Service February 23, 2020 Coding Level of Care Code Critical Care 1st - mins
[2020-02-23 04:53] LABS: Basophils # (auto) 0.03 K/uL (0-0.2); Basophils % (auto) 0.3 %; Eosinophils # (auto) 0.05 K/uL (0-0.5); Eosinophils % (auto) 0.5 %; Hematocrit (blood only) 39.5 % (42-52); Hemoglobin 13.1 g/dL (14.0-18.0); Immature Granulocytes # (auto) 0.02 K/uL (0.00-0.02); Immature Granulocytes % (auto) 0.2 %; Lymphocytes # (auto) 1.81 K/uL (1.2-3.4); Lymphocytes % (auto) 18.9 %; Mean Corpuscular Hemoglobin 32.3 pg (25-34); Mean Corpuscular Hgb Conc 33.2 g/dL (32-36); Mean Corpuscular Volume 97.5 fL (80-100); Mean Platelet Volume 10.9 fL (7.4-10.4); Monocytes # (auto) 1.03 K/uL (0.11-0.59); Monocytes % (auto) 10.8 %; Neutrophils # (auto) 6.63 K/uL (1.4-6.5); Neutrophils % (auto) 69.3 %; Platelet Count 166 K/uL (130-400); RDW Coefficient of Variation 14.2 % (11.5-14.5); RDW Standard Deviation 50.6 fL (36.4-46.3); Red Blood Count 4.05 M/uL (4.7-6.1); White Blood Count 9.57 K/uL (4.8-10.8)
[2020-02-23 05:01] LABS: BUN Creatinine Ratio 16.3 (10-20); Calcium 8.5 mg/dl (8.5-10.1); Creatinine Clr Calc Pharmacy 58.9 ml/min; Est GFR (African American) 85.5; Est GFR (Non-African American) 73.8; Magnesium 2.3 mg/dl (1.8-2.4)
[2020-02-23 05:04] LABS: Phosphorus 2.2 mg/dl (2.5-4.9)
[2020-02-23] MEDS: TICAGRELOR 90 MG TAB PO SCH ×2 (05:54→18:22)
[2020-02-23 06:11] LABS: Estimated Average Glucose 131 mg/dl; Hemoglobin A1C 6.2 % (4.5-5.6)
[2020-02-23] MEDS: ATORVASTATIN 40 MG TAB PO SCH (09:39)
[2020-02-23] MEDS: METOPROLOL TARTRATE 25 MG TAB PO SCH ×2 (09:39→22:59)
[2020-02-23] MEDS: ASPIRIN 81 MG ECTAB PO SCH (09:39)
[2020-02-23] MEDS: IPRATROPIUM BROMIDE/ALBUTEROL respimat INH INH SCH ×4 (09:41→22:59)
[2020-02-23] MEDS: ENOXAPARIN INJ 40 MG/0.4 ML SYR SQ SCH (09:44)
--- NOTE | 2020-02-23 10:40 | Critical Care Progress Note ---
Date of Service February 23, 2020 Assessment & Plan (1) Admitted to intensive care unit: Impression: 69-year-old male with acute ST elevation myocardial infarction status post stent placement to the RCA. He plans on returning back to the [facility] today for staged procedure. Recommendations: 1. Acute myocardial infarction: Continue goal-directed therapy. Plan to return to lab today for repeat stenting. Will observe in ICU after that and then likely transfer to the floor. Will likely need cardiac rehab. Beta-jose in place. Aspirin and Brilinta per protocol. EVELINE inhibitor as allowed by blood pressure. 2. Elevated hemoglobin A1c. We will ask simulation educator to meet with the patient. Continue glycemic control per ICU protocol. May require some oral agent prior to dismissal home. 3. History of tobacco abuse: Smoking cessation recommended. Disposition per cardiology and primary service. Will sign off when he leaves ICU (2) Acute ST elevation myocardial infarction (STEMI) of inferior wall: (3) S/P PTCA (percutaneous transluminal coronary angioplasty): Admission and Anticipated Discharge Date Admission Date: February 22, 2020 Subjective Patient seen and examined. EMR reviewed. Discussed on multidisciplinary rounds and with cardiology. The patient is doing well. They plan on returning to the [employer] today for repeat stenting. He is pain-free. He denies palpitations chest pressure or lower extremity edema. No nausea or vomiting. No shortness of breath. Review of Systems Review of Systems: All systems reviewed & are unremarkable except as noted in HPI & below Physical Exam Constitutional: WD/WN, vitals as above Neck: trachea midline, no thyromegaly Respiratory: normal respiratory effort, lungs clear to auscultation Cardiovascular: RRR, no murmur, no edema Gastrointestinal (Abdomen): normal bowel sounds, soft, nontender, no hepatosplenomegaly Musculoskeletal: Extremities: extremities normal to inspection Skin: no rashes, warm and dry Neurologic: Nonfocal exam Lymphatic: no cervical lymphadenopathy Results & Data Results & Data ([facility]) Vital Signs (Past 12 Hours) Vital Signs Temp Pulse Resp BP Pulse Ox 02/23/20 09:09 80 24 112/64 90 02/23/20 08:08 76 22 129/73 91 02/23/20 08:00 68 02/23/20 07:08 69 27 H 129/85 92 02/23/20 06:10 74 02/23/20 06:08 67 18 131/71 92 02/23/20 05:08 37.1 C 69 19 118/69 92 02/23/20 04:08 36.7 C 76 20 120/77 92 02/23/20 03:08 73 27 H 115/68 92 02/23/20 02:08 72 20 120/67 91 02/23/20 01:08 69 21 107/69 93 02/23/20 00:53 74 02/23/20 00:08 37.1 C 69 19 103/59 L 93 02/22/20 23:08 73 20 119/64 94 Laboratory Results 02/23/20 04:21 02/23/20 04:21 Diagnostic Findings Echocardiogram from 02/22/2020 showed concentric LVH with mildly reduced EF estimated at 40 to 45%. Regional wall motion abnormalities are noted with severe basilar inferior and posterior hypokinesis. Right ventricular junction was mildly to moderately reduced Coding Level of Care Code 38059 Subseq Hosp Care Lvl 2 Diagnoses Admitted to intensive care unit Z78.[address] elevation myocardial infarction (STEMI) of inferior wall I21.19 S/P PTCA (percutaneous transluminal coronary angioplasty) Z98.61
[2020-02-23] MEDS ORDERED: niCARdipine HCL INJ 2.5 MG/ML 10 ML AMP ONE (11:17)
[2020-02-23] MEDS ORDERED: HEPARIN (PORCINE) 1000 UNIT/ML 10 ML (CATH LAB USE ONLY) ONE (11:17)
[2020-02-23] MEDS ORDERED: fentaNYL citrate 100 MCG/2 ML VIAL ONE (11:18)
[2020-02-23] MEDS ORDERED: MIDAZOLAM HCL 1 MG/ML 2ML VIAL ONE (11:18)
[2020-02-23] MEDS ORDERED: NITROGLYCERIN/D5W 100MCG/ML 20ML SYR ONE (11:19)
--- NOTE | 2020-02-23 13:01 | Post Anesthesia Assessment ---
Date of Service February 23, 2020 Post Sedation Assessment Vital Signs Temp Pulse Pulse Resp BP BP Pulse Ox 02/23/20 12:30 75 20 121/79 91 02/23/20 11:08 112/71 02/23/20 10:08 74 19 95/54 L 97 02/23/20 09:09 80 24 112/64 90 02/23/20 08:08 76 22 129/73 91 02/23/20 08:00 68 02/23/20 07:08 69 27 H 129/85 92 02/23/20 06:10 74 02/23/20 06:08 67 18 131/71 92 02/23/20 05:08 98.8 F 69 19 118/69 92 02/23/20 04:08 98.1 F 76 20 120/77 92 02/23/20 03:08 73 27 H 115/68 92 02/23/20 02:08 72 20 120/67 91 02/23/20 01:08 69 21 107/69 93 02/23/20 00:53 74 02/23/20 00:08 98.8 F 69 19 103/59 L 93 02/22/20 23:08 73 20 119/64 94 02/22/20 22:08 70 23 103/56 L 93 02/22/20 21:08 72 18 119/58 L 94 02/22/20 20:17 78 24 112/63 92 02/22/20 19:36 98.1 F 72 21 124/73 92 02/22/20 19:31 77 02/22/20 19:25 82 21 124/73 91 02/22/20 18:09 71 20 92/56 L 92 02/22/20 18:08 74 23 92/56 L 91 02/22/20 17:09 79 24 100/48 L 91 02/22/20 16:08 70 20 109/72 92 02/22/20 16:00 85 02/22/20 15:07 72 20 128/69 92 02/22/20 14:08 70 21 101/64 93 02/22/20 13:07 70 21 112/65 92 Recovery Score Activity: Moves 4 extremities Respiration: Deep Breath/Cough Circulation: +/-20% PreAnes Value Consciousness: Fully Awake Oxygen Saturation: O2 needed for >90% Discharge Sedation Level of Care: Fast Track Phase II Post Sedation Plan On clinical assessment, the patient appears to have tolerated the sedation without complications. Patient is recovering as anticipated. Patient will continue to be monitored by nursing and may be discharged when sedation discharge criteria are met per below protocol. Upon Completions of procedure up to 15 minutes continue every 5 minute vital signs and the P.A.R. score; then discharge to a Phase I or Fast Track to Phase II per the following guidelines: * Discharge Patient to appropriate Phase II area if PAR is 8 or greater or return to pre- procedure baseline. The post - procedure orders will be as directed. * If PAR score is less than 8 or not return to pre-procedure baseline then patient will follow Phase I monitoring till PAR is reached for Phase II. The Phase I may be done in procedure room or may call to secure a Phase I area. * If naloxone or flumazenil are used for reversal, hold in Phase I for continued monitoring from when last reversal dose was given for a minimum of 60 minutes or longer pending the nurse and/or physician discretion of patient condition before discharge to Phase II. Please call the Sedation Physician to re-evaluate and complete post-note for discharge to Phase II area. Do NOT discharge from procedure sedation or Phase 1 until post- sedation evaluation note is complete by procedure /sedation MD Sedation Discharge Instructions to be given to the patient at discharge to home.
--- NOTE | 2020-02-23 13:01 | Pre Anesthesia Assessment ---
Date of Service February 23, 2020 Pre Sedation Assessment Vital Signs Temp Pulse Pulse Resp BP BP Pulse Ox 02/23/20 12:30 75 20 121/79 91 02/23/20 11:08 112/71 02/23/20 10:08 74 19 95/54 L 97 02/23/20 09:09 80 24 112/64 90 02/23/20 08:08 76 22 129/73 91 02/23/20 08:00 68 02/23/20 07:08 69 27 H 129/85 92 02/23/20 06:10 74 02/23/20 06:08 67 18 131/71 92 02/23/20 05:08 98.8 F 69 19 118/69 92 02/23/20 04:08 98.1 F 76 20 120/77 92 02/23/20 03:08 73 27 H 115/68 92 02/23/20 02:08 72 20 120/67 91 02/23/20 01:08 69 21 107/69 93 02/23/20 00:53 74 02/23/20 00:08 98.8 F 69 19 103/59 L 93 02/22/20 23:08 73 20 119/64 94 02/22/20 22:08 70 23 103/56 L 93 02/22/20 21:08 72 18 119/58 L 94 02/22/20 20:17 78 24 112/63 92 02/22/20 19:36 98.1 F 72 21 124/73 92 02/22/20 19:31 77 02/22/20 19:25 82 21 124/73 91 02/22/20 18:09 71 20 92/56 L 92 02/22/20 18:08 74 23 92/56 L 91 02/22/20 17:09 79 24 100/48 L 91 02/22/20 16:08 70 20 109/72 92 02/22/20 16:00 85 02/22/20 15:07 72 20 128/69 92 02/22/20 14:08 70 21 101/64 93 02/22/20 13:07 70 21 112/65 92 Cardiovascular RRR, no murmur, no edema Respiratory normal respiratory effort, lungs clear to auscultation Pre-Sedation Airway Assessment Smoking Status: Current every day smoker Hx Sleep Apnea: No Hx Difficult Intubation: No Short, Thick Neck: Yes Thyromental Distance: < 3.5 Finger Breadths Oral Cavity: + Dental Abnormalities Mallampati Class: II ASA: ASA3 NPO Status Date of Last Intake of Fluids: 02/23/20 Time of Last Intake of Fluids: 07:00 Last Oral Intake of Fluids Comment: sips with pills Date of Last Intake of Solid Food: 02/22/20 Time of Last Intake of Solid Foods: 20:00 Procedure Planning Contraindications for Sedation: none Current Medications Reviewed: Yes Notes The planned sedation has been discussed with the patient. Informed Consent was o btained. I have identified the patient, determined the appropriateness of sedation and have assessed the patient immediately prior to the procedure. All medicine(s) and interventions are by my order.
--- NOTE | 2020-02-23 13:08 | Cardiac Catheterization ---
[facility] Data: [employer] Cardiac Status Clinical evaluation leading to the procedure CAD Presenation: STEMI Anginal Classification: CCS IV Heart Failure: No Cardiogenic Shock within 24 Hours: No Cardiac Arrest within 24 Hours: No Imaging Studies Past 6 Months: Yes Stress Studies Past 6 Months: No Diagnostic Physicians Name: Yusuf Walker MD Status: Elective Closure Device Percutaneous Entry Location: Radial Closure Device: Radial Band Recommendations: PCI without planned CABG PCI Indication: Staged PCI Lesion Segment Name: Mid circumflex Culprit Artery: Yes Stenosis Prior to Rx (%): 70 Chronic Total Occlusion: No IVUS: No FFR: No Pre-Procedure AILYN Flow: 3 Previously Treated Lesion: No Lesion Complexity: Non-High/Non-C Lesion Length (mm): 12 Thrombus Present: No Bifurcation Lesion: No Guidewire Across Lesion: Stenosis Post-Procedure (%): 0 Post-Procedure AILYN Flow: 3 Devices(s) Deployed: Yes Yes Intraprocedure Events Significant Disection: No Perforation: No Cardiac Cath Procedure Full Procedure Date February 23, 2020 Pre-Procedure Diagnosis Pre-Procedure Diagnosis: CAD AUC Score AUC Score: 7 Post-Procedure Diagnosis Post-Procedure Diagnosis: Severe CAD, Successful PCI and Elevated Intracardiac Pressures Procedure(s) Performed Procedure(s) Performed: Coronary Angiography, Left Heart Cath and Drug Eluting Stent Dye Maker Yusuf Walker MD Pipe Turner(s) Venus Estimated Blood Loss Estimated Blood Loss: 15 Medication(s) Medication(s): Fentanyl, Heparin, Lidocaine 1%, Nicardipine, Nitroglycerin and Versed Medication(s): Ticagrelor Summary of Findings Indication: Staged PCI severe circumflex disease post primary PCI for inferior OH with stent to mid RCA yesterday Access: 6 Fr slender right radial artery Catheters: EBU 3.5 guide Findings: For full details of patient's coronary angiography please see cath report from 02/22/2020. Patient noted to have non-culprit vessel disease with a 70% mid circumflex stenosis. Decision to proceed with staged PCI today. -- PCI -- Antithrombotic therapy: Heparin, ticagrelor Procedure: Left main cannulated with EBU 3.5 guide BMW wire passed across lesion into distal vessel Mid circumflex lesion predilated with 2.5 compliant balloon Dilated lesion stented with 2.75 x 15 mm Vamsi drug-eluting stent Stent post-dilated with 3.0 noncompliant balloon IC vasodilators administered for spasm Post procedure AILYN 3 flow, stent well expanded with minimal residual stenosis and no apparent cardiac complications. Arterial Closure: TR band Summary: 1. Successful PCI of mid circumflex with single drug-eluting stent (2.75 x 15 mm [place]; postdilated with 3.0 NC). Recommendations: Can transfer to PCU for continued monitoring today Continue dual-antiplatelet therapy for at least 1 year Continue statin, and ASCVD risk factor modification Hemodynamics Rest Ao:: 92/61/75 Final Ao: 123/67/94 LV: 121/28 Recommendations Recommendations: PCI without planned CABG Specimens Specimens: None Radiation Exposure (mGy) 1218 Contrast (mls) 70 Fluids (cc crystalloids) Fluids (cc crystalloids): 79 Drains Drains: none Anesthesia moderate Procedural Complication(s) None Disposition PCU I attest to the content of the Intraoperative Record and any orders documented therein. Any exceptions are noted below. [facility] Card Cath Procedure Codes Cardiac Catheterization Procedure 1: Cardiovascular Cath Procedures: 61417 Left Heart Cath (+/-LV) Moderate Sedation Procedure 1: Sedation/Anesthesia: 01312 Mod Sedation by the same physician;Init15 Min Child Age 5 & Up Procedure 2: Sedation/Anesthesia: 63325 Mod Sedation by the same physician; Ea [id number] Minutes Stenting Procedure 1: Cardiovascular Stent Procedures: 37726 Perc transcatheter placement of intracoronary stent(s), with ang PG Care Time/CCT Total # of Minutes Spent Total Time Spent with Patient: Total time spent is greater than 50% in coordination of care (as documented) at patient's floor/unit and/or counseling patient:
--- NOTE | 2020-02-23 13:15 | Cardiology Progress Note ---
Date of Service February 23, 2020 Assessment & Plan (1) Acute ST elevation myocardial infarction (STEMI) of inferior wall: -Post primary PCI with single MARIA GUADALUPE to mid RCA 2. Severe non-culprit vessel diseasepost PCI with single MARIA GUADALUPE to mid circumflex today 3. Ischemic cardiomyopathyEF 40 to 45%, inferior wall motion abnormality 4. Hypertension 5. Dyslipidemia 6. Ongoing tobacco abuse 7. COPD Patient chest pain-free. Troponin has peaked. Post uncomplicated staged PCI to circumflex today LV filling pressures elevated on cath but no signs of heart failure on exam. From a cardiac standpoint okay with transfer to telemetry today Continue DAPT with aspirin, ticagrelor. If patient unable to take twice a day med can switch to clopidogrel on discharge Increase metoprolol to 25 mg twice dailyhome on Toprol-XL 50 mg daily. Continue current lisinopril, statin Stressed smoking cessation Likely home tomorrow a.m. Admission and Anticipated Discharge Date Admission Date: February 22, 2020 Subjective Feeling well today. No chest pain overnight. No pain at right radial artery access site. No other new complaints. Telemetry reviewedno events. Underwent successful PCI of mid circumflex today Review of Systems Review of Systems: All systems reviewed & are unremarkable except as noted in HPI & below Physical Exam Physical Exam: General: Comfortable, no acute distress HEENT: Sclerae anicteric, mucous membranes moist Lungs: Clear to auscultation bilaterally Cardiac: Regular rate and rhythm, no murmurs. Abdomen: Soft, nontender, nondistended, positive bowel sounds. Extremities: Warm, well perfused, no edema. Right radial artery access site with no ecchymosis, hematoma. Distal pulse and sensation intact. Skin: No rashes or lesions. Neuro: Nonfocal Psych: Alert orient x3, normal affect and mood Results & Data ([facility]) Vital Signs (Past 12 Hours) Vital Signs Temp Pulse Resp BP Pulse Ox 02/23/20 12:30 75 20 121/79 91 02/23/20 11:08 112/71 02/23/20 10:08 74 19 95/54 L 97 02/23/20 09:09 80 24 112/64 90 02/23/20 08:08 76 22 129/73 91 02/23/20 08:00 68 02/23/20 07:08 69 27 H 129/85 92 02/23/20 06:10 74 02/23/20 06:08 67 18 131/71 92 02/23/20 05:08 98.8 F 69 19 118/69 92 02/23/20 04:08 98.1 F 76 20 120/77 92 02/23/20 03:08 73 27 H 115/68 92 02/23/20 02:08 72 20 120/67 91 PG Care Time/CCT Total # of Minutes Spent Total Time Spent with Patient: Total time spent is greater than 50% in coordination of care (as documented) at patient's floor/unit and/or counseling patient: Coding Level of Care Code 36570 Subseq Hosp Care Lvl [address] elevation myocardial infarction (STEMI) of inferior wall I21.19
--- NOTE | 2020-02-23 17:54 | Hospitalist Progress Note ---
Date of Service February 23, 2020 Assessment & Plan (1) Cigarette smoker: Altagracia Burroughs is a 69yo male with COPD and dyslipidemia who presented to the ED today with an inferior STEMI. Received atropine during an episode of bradycardia and hypotension during catheterization. Currently in ICU but doing well and largely symptom-free. Inferior STEMI -s/p catheterization, placement of one drug-eluting stent to RCA yesterday, stenting of mid-circumflex performed today -s/p atropine during catheterization for hypotension to 70/40's and bradycardia to 30's; pressures 89-121/58-73 since then -discontinued eptifabatide drip -brilinta 90mg PO bid -ASA 81mg qd -atorvastatin 80mg qAM -metoprolol tartrate 12.5mg PO bid -lisinopril 5mg PO qpm -morphine sulfate 2mg IV q2h prn -nitroglycerin 0.4mg SL prn -ondansetron 4mg IV q6h prn -toponin peaked and fallin.326 at 04:38, then 176 at 11:57, then 120 at 18:09 (all troponins from 02/21) -counseling on cardiovascular risk factors, lifestyle and behavioral modifications COPD, nicotine dependence -continue home breo ellipta qd -continue home ipratropium bromide -continue home albuterol prn -will senior vice president & general counsel on smoking cessation Dyslipidemia -statin as above FENGI: heart healthy diet DVT prophylaxis: lovenox Code status: full code Dispo: ICU (2) S/P drug eluting coronary stent placement: (3) S/P PTCA (percutaneous transluminal coronary angioplasty): (4) Acute ST elevation myocardial infarction (STEMI) of inferior wall: (5) Admitted to intensive care unit: (6) COPD (chronic obstructive pulmonary disease): Admission and Anticipated Discharge Date Admission Date: February 22, 2020 Supervising Physician Co-Signing Physician Notes Patient seen and examined with PGY-1 Dr. Ramos. Agree with history, exam findings, assessment and plan of care as outlined. In brief, Mr. Burroughs is a 69 year old male with history of COPD, cigarette use admitted with inferior STEMI now s/p cath with MARIA GUADALUPE to RCA. No overnight events. Denies chest pain. Denies dyspnea. Nursing notes, labs and imaging reviewed. Regular rate and rhythm. Lungs are clear to auscultation with good air movement. No peripheral edema. 1. Inferior STEMI. s/p PCI with MARIA GUADALUPE to mid-RCA. Went today for MARIA GUADALUPE to the mid- circumflex. Continue with atorvastatin 80mg, ASA, Brillinta 90mg BID, metoprolol tartrate 12.5mg BID, lisinopril 5mg. Will need NOE x 1 year. Trops have peaked. TTE with EF 40-45%, mild concentric LVH, LV with severe basal inferior and posterior hypokinesis, RV systolic function mild to moderately reduced. A1C is 6.2. Consult cardiac rehab for post-discharge rehab. 2. COPD, Tobacco use. Continue home breo ellipta, Combivent. 3. Anemia. Hgb 16?13.1. Possibly dilutional vs post-procedure anemia. Dispo: pending clinical improvement. Subjective Patient seen at bedside this morning. No chest pain overnight and no other symptoms. No events on telemetry. Successful stenting of mid-circumflex performed today by cardiology. Review of Systems Constitutional: no fever and no chills Respiratory: no cough and no dyspnea Cardiovascular: no chest pain, no radiating jaw, neck or arm pain, no dyspnea, no orthopnea, no palpitations, no lightheadedness, no syncope, no edema and no calf pain Gastrointestinal: no abdominal pain, no nausea and no vomiting Genitourinary: no dysuria and no urinary frequency Physical Exam Constitutional: no acute distress and not ill appearing Respiratory: normal respiratory effort, lungs clear to auscultation Cardiovascular: RRR, no murmur, no edema Vessels: no JVD and no carotid bruit Gastrointestinal (Abdomen): normal bowel sounds, soft, nontender, no hepatosplenomegaly Neurologic: CN's II-XI intact bilaterally Results & Data Results & Data ([facility]) Vital Signs (Past 12 Hours) Vital Signs Temp Pulse Pulse Resp BP BP Pulse Ox 02/23/20 06:10 74 02/23/20 06:08 67 18 131/71 92 02/23/20 05:08 37.1 C 69 19 118/69 92 02/23/20 04:08 36.7 C 76 20 120/77 92 02/23/20 03:08 73 27 H 115/68 92 02/23/20 02:08 72 20 120/67 91 02/23/20 01:08 69 21 107/69 93 02/23/20 00:53 74 02/23/20 00:08 37.1 C 69 19 103/59 L 93 02/22/20 23:08 73 20 119/64 94 02/22/20 22:08 70 23 103/56 L 93 02/22/20 21:08 72 18 119/58 L 94 02/22/20 20:17 78 24 112/63 92 02/22/20 19:36 36.7 C 72 21 124/73 92 02/22/20 19:31 77 02/22/20 19:25 82 21 124/73 91 Resident Activity Tracking Resident Involvement: Resident Care Provided Care Provided: Adult Hospital Medicine
[2020-02-23] MEDS: lisinopriL 5 MG TAB PO SCH (22:59)
[2020-02-23] MEDS: UMECLIDINIUM BROMIDE 62.5MCG/BLISTER 7 PUFFS/INHALER INH SCH (22:59)
[2020-02-23] MEDS: FLUTICASONE/VILANTEROL 100/25MCG 14 PUFFS/INHALER INH SCH (22:59)
[2020-02-24 04:53] LABS: Basophils # (auto) 0.02 K/uL (0-0.2); Basophils % (auto) 0.2 %; Eosinophils # (auto) 0.09 K/uL (0-0.5); Hematocrit (blood only) 39.3 % (42-52); Hemoglobin 12.9 g/dL (14.0-18.0); Immature Granulocytes # (auto) 0.01 K/uL (0.00-0.02); Immature Granulocytes % (auto) 0.1 %; Lymphocytes % (auto) 16.6 %; Mean Corpuscular Hemoglobin 31.8 pg (25-34); Mean Corpuscular Hgb Conc 32.8 g/dL (32-36); Mean Corpuscular Volume 96.8 fL (80-100); Mean Platelet Volume 10.9 fL (7.4-10.4); Monocytes # (auto) 0.99 K/uL (0.11-0.59); Neutrophils # (auto) 6.42 K/uL (1.4-6.5); Neutrophils % (auto) 71.1 %; Platelet Count 169 K/uL (130-400); RDW Standard Deviation 49.7 fL (36.4-46.3); Red Blood Count 4.06 M/uL (4.7-6.1); White Blood Count 9.03 K/uL (4.8-10.8)
[2020-02-24 05:23] LABS: BUN Creatinine Ratio 17.9 (10-20); Calcium 8.4 mg/dl (8.5-10.1); Creatinine Clr Calc Pharmacy 71.3 ml/min; Est GFR (Non-African American) 88.9; Magnesium 2.2 mg/dl (1.8-2.4); Phosphorus 2.4 mg/dl (2.5-4.9)
[2020-02-24] MEDS: TICAGRELOR 90 MG TAB PO SCH (05:33)
--- NOTE | 2020-02-24 08:37 | Cardiology Progress Note ---
Date of Service February 24, 2020 Assessment & Plan (1) Acute ST elevation myocardial infarction (STEMI) of inferior wall: -Post primary PCI with single MARIA GUADALUPE to mid RCA 2. Severe non-culprit vessel diseasepost PCI with single MARIA GUADALUPE to mid circumflex 3. Ischemic cardiomyopathyEF 40 to 45%, inferior wall motion abnormality 4. Hypertension 5. Dyslipidemia 6. Ongoing tobacco abuse 7. COPD 8. Prediabetes No recurrent chest pain. Electrically stable. Postprocedural labs stable. No access site complications. No signs of heart failure on exam. Patient okay for discharge today from a cardiac standpoint. Cardiac meds on discharge: DAPT with aspirin 81, ticagrelor 90 twice daily Toprol-XL 50 mg daily, lisinopril 5 mg daily Atorvastatin 80 mg daily Again stressed smoking cessation Follow-up with me in 2 weeks. Will discuss cardiac rehab further at that time. Admission and Anticipated Discharge Date Admission Date: February 22, 2020 Subjective Feeling well this morning. No recurrent chest pain. Breathing comfortably walking in the bathroom. No other new concerns. Telemetry reviewedno events. Review of Systems Review of Systems: All systems reviewed & are unremarkable except as noted in HPI & below Physical Exam Physical Exam: General: Comfortable, no acute distress HEENT: Sclerae anicteric, mucous membranes moist Lungs: Clear to auscultation bilaterally Cardiac: Regular rate and rhythm, no murmurs. Abdomen: Soft, nontender, nondistended, positive bowel sounds. Extremities: Warm, well perfused, no edema. Right radial artery access site with no ecchymosis, hematoma. Distal pulse and sensation intact. Skin: No rashes or lesions. Neuro: Nonfocal Psych: Alert orient x3, normal affect and mood Results & Data ([facility]) Vital Signs (Past 12 Hours) Vital Signs Temp Pulse Resp BP Pulse Ox 02/24/20 08:00 67 02/24/20 07:42 78 29 H 111/70 92 02/24/20 05:43 70 36 H 105/62 92 02/24/20 03:42 98.6 F 76 22 97/54 L 90 02/24/20 02:42 73 19 130/65 94 02/24/20 01:43 72 19 128/76 92 02/24/20 00:42 98.6 F 69 25 H 97/58 L 92 02/24/20 00:05 74 32 H 110/60 93 02/24/20 00:01 71 02/24/20 00:00 73 30 H 90 02/23/20 23:00 72 26 H 92 02/23/20 22:42 98.6 F 75 27 H 104/58 L 92 02/23/20 21:42 77 26 H 108/60 92 02/23/20 20:56 98.8 F 80 20 91/60 L 92 02/23/20 20:43 75 20 73/48 L 91 PG Care Time/CCT Total # of Minutes Spent Total Time Spent with Patient: Total time spent is greater than 50% in coordination of care (as documented) at patient's floor/unit and/or counseling patient: Coding Level of Care Code 71209 Subseq Hosp Care Lvl [address] elevation myocardial infarction (STEMI) of inferior wall I21.19
[2020-02-24] MEDS: ASPIRIN 81 MG ECTAB PO SCH (08:56)
[2020-02-24] MEDS: METOPROLOL TARTRATE 25 MG TAB PO SCH (08:56)
[2020-02-24] MEDS: ATORVASTATIN 40 MG TAB PO SCH (08:56)
[2020-02-24] MEDS: IPRATROPIUM BROMIDE/ALBUTEROL respimat INH INH SCH (08:57)
[2020-02-24] MEDS: ENOXAPARIN INJ 40 MG/0.4 ML SYR SQ SCH (09:00)
--- NOTE | 2020-02-24 10:02 | Discharge Summary ---
Date of Service February 24, 2020 Admission HPI Per Admitting Provider Altagracia Burroughs is a 69 year old man with a past medical history significant for COPD not on home O2, dyslipidemia, and a family history of CAD brother and mother both with AR's in their sixties, who presented with substernal chest pain moving into left arm. 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 He attributed this to gas pain but it was becoming more and more frequent and this morning it was not going away. [facility] to [facility]. On presentation to ED patient found to have vitals WNL, ECG showing textbook acute inferior AR with large ST elevations is II III and aVF, Lab work significant for troponin of .326. A heart alert was called and patient was taken to the labor arbitrator with Dr. 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 1 MARIA GUADALUPE was placed in RCA. Also with moderate stenosis of Left circumflex artery but appeared to be non culprit lesion and was not stented. Patient was admitted to ICU for further monitoring. Admission Exam Per Admitting Provider Constitutional: WD/WN, vitals as above Eyes: PERRL, conjunctivae normal, anicteric sclerae ENMT: external ear and nose normal, oropharynx normal Respiratory: normal respiratory effort, lungs clear to auscultation Cardiovascular: RRR, no murmur, no edema Gastrointestinal (Abdomen): normal bowel sounds, soft, nontender, no hepatosplenomegaly Skin: Pressure bandage in place around right wrist site of access for Catheterization, missing distal portion of right second digit Principal Diagnosis STEMI Discharge Exam GENERAL: No acute distress. Well developed and well nourished. Resting comfortably, laying in bed with TV on. Vital signs reviewed as above. A/O x3. EYES: Anicteric sclerae. HENT: Moist mucous membranes. RESPIRATORY: Clear to auscultation bilaterally. No wheezing, rales, or rhonchi. CARDIOVASCULAR: Distant heart sounds but regular rate and rhythm. No murmurs. ABDOMEN: Soft, non-tender and non-distended. Normal bowel sounds. NEUROLOGIC: No focal neurological deficits. PSYCHIATRIC: Cooperative. Appropriate mood and affect. Discharge Data Allergies Allergy/AdvReac Type Severity Reaction Status Date / Time No Known Allergies Allergy Unverified 10/10/18 12:03 Consultations 02/22/20 04:28 Consult Cardiology Stat ED Decision to Admit Stat 02/22/20 06:05 Consult Cardiac Rehabilitation Routine Consult Case Management - Discharge Planning Routine Consult Visitor Service Assistant Routine 02/22/20 06:06 Consult Case Management - Discharge Planning Routine Consult Visitor Service Assistant Routine Procedures Performed Operation Date: 02/22/20 05:00 Actual Procedures p Aspiration/PCI w/MARIA GUADALUPE for Stemi - Eleuterio Walker MD s Cardiac Heart Alert - Eleuterio Walker MD s Cath, Left with Cors and Vent - Eleuterio Walker MD s Cineradiography w/Routine Exam - Eleuterio Walker MD Operation Date: 02/23/20 11:30 Actual Procedures p Drug Eluting Stent SGl Vessel - Eleuterio Walker MD s Cath, Left with Cors and Vent - Eleuterio Walker MD s Cineradiography w/Routine Exam - Eleuterio Walker MD Ordered Studies 02/22/20 05:06 CL Cath Imgs for PACS use only Routine 02/23/20 11:18 CL Cath Imgs for PACS use only Routine Hospital Course (1) Cigarette smoker: Altagracia Burroughs is a 69yo male with COPD and dyslipidemia who presented to the ED 02/22/20 with an inferior STEMI. Received atropine during an episode of bradycardia and hypotension during catheterization. Was admitted to ICU but did well throughout stay. Today, he remains symptom-free -- no CP, SOB, cough, or fever. Patient is eating well and is sleeping fairly well. He is eager for d/c home today. Inferior STEMI -cardiology was consulted and provided care throughout stay; new cardiac medications (noted below) started per cardiology -s/p catheterization, placement of one drug-eluting stent to RCA 02/22/20, stenting of mid-circumflex performed 02/23/20 -s/p atropine during catheterization for hypotension to 70/40's and bradycardia to 30's during cath on 02/22/20; pressures 89-121/58-73 since then -discontinued eptifabatide drip -TTE with EF 40-45%, mild concentric LVH, LV with severe basal inferior and posterior hypokinesis, RV systolic function mild to moderately reduced -started new cardiac medication regimen of: brilinta 90mg PO bid, ASA 81mg qd, atorvastatin 80mg qAM, metoprolol tartrate 12.5mg PO bid, and lisinopril 5mg PO qpm -pain controlled with morphine sulfate 2mg IV q2h prn (required total of 1 dose), tylenol 650mg q4h prn (did not use any Tylenol) and nitroglycerin 0.4mg SL prn (received one dose) -nausea control with ondansetron 4mg IV q6h prn (did not use any Zofran) -troponin on arrival to ED was 0.326 ng/ml at 0438 on 02/21 --> troponin peaked at 1157 on 02/21 at 176 ng/ml --> trended 1 more at 1809 on 02/21 which was 120 ng/ml -pt was extensively counseled on cardiovascular risk factors, lifestyle and behavioral modifications -smoking cessation was encouraged multiple times throughout hospital stay; on day of discharge, pt stated that it "wasn't addiction but more of a habit -- I go to grab for them [the cigarettes] when I sit in my garage or I go to grab them out of my pocket" -per Dr. Walker (cardiology), cardiac meds on discharge: DAPT with aspirin 81 and ticagrelor 90 twice daily, Toprol-XL 50 mg daily, lisinopril 5 mg daily, and Atorvastatin 80 mg daily -plan to f/u with Dr. Walker in 2 weeks and plan to discuss cardiac rehab further at that time COPD, nicotine dependence -home medications continued during stay -- breo ellipta qd, ipratropium bromide, and albuterol prn -counselled on smoking cessation Dyslipidemia -started statin as above Pre-diabetes -A1c during admission found to be 6.2% -pt met with records officer -will need to f/u with pcp MALCOM: heart healthy diet DVT prophylaxis: lovenox while admitted, DAPT upon discharge with ASA 81mg po daily and Ticagrelor 90mg BID Code status: full code Dispo: plan for d/c home today (2) S/P drug eluting coronary stent placement: (3) S/P PTCA (percutaneous transluminal coronary angioplasty): (4) Acute ST elevation myocardial infarction (STEMI) of inferior wall: (5) Admitted to intensive care unit: (6) COPD (chronic obstructive pulmonary disease): Total Time Total Time Spent Total Time Spent (In Minutes): See attending attestation Discharge Plan Discharge Items Patient Disposition: Home - Self-Care Reason For Visit: ACUTE STEMI Discharge Diagnosis: acute STEMI Condition on Discharge: Good Activity: Per Instructions section Non-emergency contact: Primary Care Provider and Nursing Education Specialist Call non-emergency contact if: you have any medication questions, your symptoms worsen, your pain is not controlled, your pain is worsening, you have a fever and your temperature is above 101 Follow-up/Referrals: Eleuterio Walker MD [Physician] - PCP,SADE [Primary Care Provider] - Diet: Heart Healthy Addtl Attending Provider Instructions: Mr. Burroughs, It was our pleasure caring for you at [facility] from 02/22/20 to 02/24/20. You initially came to the hospital with chest pain radiating to your left arm. It was determined that you were having a heart attack. You received cardiac surgery and stents placed. Your medications have been adjusted for your cardiac health -- you should be taking the following cardiac medications: Aspirin 81mg by mouth daily, Ticagrelor 90mg by mouth twice a day, Toprol-XL 50mg by mouth daily, lisinopril 5mg by mouth daily, and atorvastatin 80mg by mouth daily. You should resume your other home medications as indication on the medication list. We do recommend, as discussed, that you stop smoking -- both for your heart health as well as lung health. Please follow up with Dr. Walker, cardiology, in 2 weeks. You should also follow up with your family doctor within 1 week. Pleas call us with any questions or concerns. Pending Studies at Discharge: No Stand-Alone Forms: My [facility] [employer], Smoking Cessation Medications and DC Order Prescriptions: New atorvastatin 40 mg Tablet 80 mg PO QAM 30 Days Qty: 60 RF: 0 aspirin 81 mg Tablet,Delayed Release (Dr/Ec) 81 mg PO QAM 30 Days Qty: 30 RF: 0 lisinopril [Zestril] 5 mg Tablet 5 mg PO QPM 30 Days Qty: 30 RF: 0 metoprolol succinate [Toprol XL] 50 mg tablet extended release 24 hr 50 mg PO DAILY Qty: 30 RF: 0 Brilinta 90 mg tablet 90 mg PO BID 30 Days Qty: 60 RF: 0 Continued Symbicort 160-4.5 mcg/actuation Hfa Aerosol Inhaler 1 puff INHALATION HS RF: 0 Spiriva Respimat 2.5 mcg/actuation Mist 2 puff INHALATION HS RF: 0 Combivent Respimat 20-100 mcg/actuation Mist 1 puff INHALATION TID RF: 0 Discharge Orders: Discharge Order (Routine); Ordered 02/24/20 Ordered By: Michelle Rahman/Other Patient Handouts: Prediabetes, Tips Cardiovascular Quit Smoking, Planning to Quit Smoking, Staying Smoke-Free, The Benefits of Living Smoke Free, Diabetes: Meal Planning, Eating Heart-Healthy Foods, A1C Admission Data Admit Date/Time: 02/22/20 06:05 Attending Provider: Koki Ybarra Admit Provider: Salvatore Jack Primary Care Provider: PCP,NO Other Providers: Eleuterio Walker ; Jeremiah Littlejohn ; Carlo Del Real Other Interventions: Discharge Summary Assessment (RN) Last Done: 02/24/20 10:59 Supervising Physician Co-Signing Physician Notes Patient seen and examined with PGY-1 Dr. Peoples. Agree with history, exam findings, assessment and plan of care as outlined. In brief, Mr. Burroughs is a 69 year old male with history of COPD, cigarette use admitted with inferior STEMI now s/p cath with MARIA GUADALUPE to RCA and mid-circumflex. No overnight events. Denies chest pain. Denies dyspnea. Eager to go home. Nursing notes, labs and imaging reviewed. Regular rate and rhythm. Lungs are clear to auscultation with good air movement. Breathing comfortably on room air. No peripheral edema. 1. Inferior STEMI. s/p PCI with MARIA GUADALUPE to mid-RCA and now mid-circumflex ( yesterday). Doing well. Ready for discharge. Continue with atorvastatin 80mg, ASA, Brillinta 90mg BID, lisinopril 5mg. Switched from metoprolol tartrate 25mg BID and will be on metoprolol XL 50mg on discharge. Will need NEO x 1 year. TTE with EF 40-45%, mild concentric LVH, LV with severe basal inferior and posterior hypokinesis, RV systolic function mild to moderately reduced. A1C is 6.2. Consult cardiac rehab for post-discharge rehab. 2. COPD, Tobacco use. Continue home breo ellipta, Combivent. Counseled on smoking cessation. Declined nicotine replacement and other smoking cessation aids. 3. Anemia. Hgb 16?13.1. Possibly dilutional vs post-procedure anemia. 4. Pre-diabetes. A1C 6.2. Seen by records officer. Can continue to address as an outpatient. Dispo: Discharge home today. Follow up with Dr. Walker in 1-[address] Walker is planning to arrange for cardiac rehab at his outpatient appointment.
--- NOTE | 2020-02-24 10:13 | Critical Care Progress Note ---
Date of Service February 24, 2020 Assessment & Plan (1) Admitted to intensive care unit: Impression: 69-year-old male with acute ST elevation myocardial infarction status post stent placement to the RCA initially with follow-up stenting performed yesterday to the circumflex. He is now pain-free and doing well Recommendations: 1. Acute myocardial infarction: Will likely need cardiac rehab. Beta-jose in place. Aspirin and Brilinta per protocol. EVELINE inhibitor as allowed by blood pressure. 2. Elevated hemoglobin A1c. Will need to follow-up with his primary care provider regarding his elevated hemoglobin A1c. 3. History of tobacco abuse: Smoking cessation recommended. We will sign off. Call if we can be of additional questions (2) Acute ST elevation myocardial infarction (STEMI) of inferior wall: (3) S/P PTCA (percutaneous transluminal coronary angioplasty): Admission and Anticipated Discharge Date Admission Date: February 22, 2020 Subjective No issues overnight. The patient underwent repeat coronary angiography with stent placement. He is tolerated it well. He is pain-free. He denies any nausea or vomiting. Physical Exam Constitutional: WD/WN, vitals as above Neck: trachea midline, no thyromegaly Respiratory: normal respiratory effort, lungs clear to auscultation Cardiovascular: RRR, no murmur, no edema Gastrointestinal (Abdomen): normal bowel sounds, soft, nontender, no hepatosplenomegaly Musculoskeletal: Extremities: extremities normal to inspection Skin: no rashes, warm and dry Lymphatic: no cervical lymphadenopathy Results & Data Results & Data ([facility]) Vital Signs (Past 12 Hours) Vital Signs Temp Pulse Resp BP Pulse Ox 02/24/20 08:42 81 25 H 115/62 91 02/24/20 08:00 67 02/24/20 07:42 78 29 H 111/70 92 02/24/20 05:43 70 36 H 105/62 92 02/24/20 03:42 37.0 C 76 22 97/54 L 90 02/24/20 02:42 73 19 130/65 94 02/24/20 01:43 72 19 128/76 92 02/24/20 00:42 37.0 C 69 25 H 97/58 L 92 02/24/20 00:05 74 32 H 110/60 93 02/24/20 00:01 71 02/24/20 00:00 73 30 H 90 02/23/20 23:00 72 26 H 92 02/23/20 22:42 37.0 C 75 27 H 104/58 L 92 Coding Level of Care Code 93826 Subseq Hosp Care Lvl 2 Diagnoses Admitted to intensive care unit Z78.[address] elevation myocardial infarction (STEMI) of inferior wall I21.19 S/P PTCA (percutaneous transluminal coronary angioplasty) Z98.61
== END 2020-02-24 11:53 | disposition home or self-care (01) | DRG 247 ==
LOC: ED 04:15 → CC 04:59 → SUATTDRO 06:05 → 1E 06:05

== ENCOUNTER 2020-10-03 07:37 | Inpatient (IN) ==
--- NOTE | 2020-09-17 10:26 | Anesthesiology Consultation ---
Date of Service September 17, 2020 Assessment & Plan (1) Encounter for pre-operative examination: - Recent cardiac stent: Cardiac MARIA GUADALUPE x2 placed 02/22/21 ([facility]) 2/2 acute CA. DOS is less than 1 year after stent placements (but greater than 6 months). Received cardiology clearance (dated 07/30/2020): "Patient had myocardial infarction in February 2020 and he had drug-eluting stents placed and according to the guidelines he should be on dual antiplatelet therapy for 1 year before he can be safely stopped prior to the surgery. I have told this to the patient but he has significant pain and wants to undergo the surgery and is willing to take the risk of recurrent myocardial infarction. Patient will be considered moderate cardiac risk. Blood pressure appears to be controlled, continue present therapy and monitoring. Continue aggressive control of his lipids and other risk factors. Continue treatment for COPD." Case reviewed with kelly Davidson to proceed with surgery as scheduled as long as patient accepting of increased risk due to recent stent placement. - COVID screening: Per assessment on 09/16: Travel screen negative, no known COVID-19 positive contacts or current COVID-19 related symptoms. Surgeon arranging preop COVID testing (scheduled 09/26; U). Awaiting results. - ASA/plavix instructions per surgeon/prescriber Chart Review Chart Review: Acceptable Risk for Surgery (pending evaluation AM DOS) and Jane ent NOT seen in Pre Admission Testing History Surgery Operation Date: 10/03/20 08:20 Proposed Procedures p Left Total Shoulder Arthroplasty Reverse - Eder Rosario M.D. Height/Weight Height: 5 ft 5 in Weight: 65.771 kg Allergies Allergy/AdvReac Type Severity Reaction Status Date / Time No Known Allergies Allergy Verified 09/16/20 10:49 Medications Home Medications Medication Instructions Recorded Confirmed Last Taken Combivent Respimat 1 puff INHALATION TID 10/10/18 09/16/20 09/02/20 Spiriva Respimat 2 puff INHALATION HS 10/10/18 09/16/20 09/01/20 budesonide-formoterol [Symbicort] 1 puff INHALATION HS 10/10/18 09/16/20 09/01/20 aspirin 81 mg tablet,delayed 81 mg PO QAM 30 Days #30 tab 03/07/20 09/16/20 09/02/20 release lisinopril 5 mg tablet 5 mg PO QPM 30 Days #30 tab 03/07/20 09/16/20 09/01/20 atorvastatin 80 mg PO QAM 07/18/20 09/16/20 09/02/20 clopidogrel 75 mg PO QAM 07/18/20 09/16/20 09/02/20 metoprolol succinate [Toprol XL] 50 mg PO QPM 07/18/20 09/16/20 09/01/20 tramadol 50 mg PO BID PRN 09/02/20 09/16/20 09/01/20 Past Medical History Medical History CAD (coronary artery disease) s/p STEMI with MARIA GUADALUPE x 2 02/23/20 COPD (chronic obstructive pulmonary disease) History of CA (myocardial infarction) 02/2020 (treated [address] [facility]) s/p MARIA GUADALUPE x2. Completed at-home cardiac rehab. Following now with OR cardiology. HTN (hypertension) Hyperlipemia Ischemic cardiomyopathy EF 40-45% on echo 02/22/20. Osteoarthritis Past Family History Family History Other No family history of adverse response to anesthesia No pertinent family history Past Surgical History Surgical History History of cardiac catheterization s/p STEMI with MARIA GUADALUPE x 2 02/23/20 History of colonoscopy History of repair of right rotator cuff History of surgical amputation of finger History of tooth extraction Social History Smoking Status: Current every day smoker tobacco type: cigarettes Smoking cigarettes per day: 10 CIGS A DAY Do You Dip or Chew Tobacco: No Hx Alcohol Use: No Hx Substance Use: No substance use type: does not use Lab Results Anesthesia Preop Results Results Anesthesia Widget: WBC 11.28 K/uL (4.8-10.8) H 09/02/20 Hgb 15.4 g/dL (14.0-18.0) 09/02/20 Hct 45.5 % (42-52) 09/02/20 Plt 233 K/uL (130-400) 09/02/20 Na 137 mmol/L (136-145) 09/02/20 K 4.4 mmol/L (3.5-5.1) 09/02/20 Cl 107 mmol/L (98-107) 09/02/20 CO2 27 mmol/L (21-32) 09/02/20 BUN 18 mg/dl (7-18) 09/02/20 Creat 0.90 mg/dl (0.6-1.4) 09/02/20 Glucose Level 110 mg/dl (70-99) H 09/02/20 PT 10.3 Seconds (9.0-12.0) 07/29/20 PTT 25.4 Seconds (21.0-31.0) 07/29/20 INR 1.0 (0.9-1.1) 07/29/20 HA1c 6.2 % (4.5-5.6) H 07/29/20 Urine Color Dark Yellow 09/02/20 Urine Appearance Clear (Clear) 09/02/20 Urine pH 5.0 (4.5-7.5) 09/02/20 Urine Specific [place] 1.023 (1.000-1.030) 09/02/20 Urine Protein Negative (Negative) 09/02/20 Urine Glucose (UA) Negative (Negative) 09/02/20 Urine Ketones Negative (Negative) 09/02/20 Urine Blood Negative (Negative) 09/02/20 Urine Nitrite Negative (Negative) 09/02/20 Urine Bilirubin Negative (Negative) 09/02/20 Urine Urobilinogen Negative (Negative) 09/02/20 Urine Leukocyte Esterase Trace (Negative) H 09/02/20 Urine WBC (Auto) 1-5 /hpf (0-5) 09/02/20 Urine RBC (Auto) 0-4 /hpf (0-4) 09/02/20 Urine Hyaline Casts (Auto) 1-5 /lpf (0-5) 09/02/20 Urine Epithelial Cells (Auto) 10-20 /lpf (0-5) H 09/02/20 Urine Bacteria (Auto) Negative (Negative) 09/02/20 Blood Type O Positive 07/29/20 Antibody Screen NEGATIVE 07/29/20 Testing Electrocardiogram Date: 07/29/20 Findings: + NSR @ (72bpm) Nonspecific T wave abnormality. Compared with EKG of 02/22/2020, criteria for inferior infarct are no longer present, ST no longer elevated in inferior leads, T wave inversion no longer evident in inferior leads, nonspecific T wave abnormality no longer evident in anterolateral leads. Chest X-Ray Date: 07/29/20 FINDINGS: The lungs are hyperexpanded with mild apical predominant emphysematous changes. This remains unchanged. No pleural effusions. No pneumothorax. The lungs are clear. No evidence for pulmonary edema. The heart is normal in size. A right coronary artery stent is noted. IMPRESSION: Emphysema. Otherwise, no acute process within the chest. Echocardiogram Date: 02/22/20 EF: 40-45% Other Findings: + LVH (mild) Severe basal inferior and posterior hypokinesis. RV systolic function is mild to moderately reduced. LV systolic function is mildly reduced. Cardiac Catheterization Date: 02/23/20 Patient noted to have non-culprit vessel disease with a 70% mid circumflex stenosis. Decision to proceed with staged PCI today. Successful PCI of mid circumflex with single drug-eluting stent (2.75 x 15 mm Vamsi; postdilated with 3.0 NC).
--- NOTE | 2020-10-02 12:27 | History & Physical Report ---
Date of Service October 02, 2020 Assessment & Plan (1) Left rotator cuff tear arthropathy: He has a massive, full-thickness, retracted rotator cuff tear with about 70% fatty atrophy of the supraspinatus muscle belly, proximal migration humeral head, and glenohumeral joint arthritis. This is consistent with rotator cuff tear arthropathy. We discussed further conservative treatment with repeat steroid injections versus definitive surgical intervention with a reverse total shoulder arthroplasty. He has gotten decreasing efficacy of the injections over time, and would much prefer to proceed with shoulder replacement, and I think this is reasonable. He will require clearance from his primary care physician and credit collections manager. He will need to be off of his aspirin and Plavix for 7 days prior to surgery. Risks, benefits, and alternatives of surgery were explained in detail. The surgical procedure, as well as postoperative recovery and rehabilitation, was also explained in detail. Risks include bleeding; infection; damage to surrounding structures such as nerves, blood vessels, and tendons that run in the area; persistent pain or stiffness; hardware failure; dislocation; brachial plexus palsy; blood clots; or need for further surgery. The patient understands all of this and wishes to proceed with surgery. Preoperative workup was completed today, and informed consent was obtained. Present on Admission?: Yes History of Present Illness Chief Complaint: Left shoulder pain and weakness Primary Care Provider: NO PCP Mr. Burroughs is a 69-year-old [id number] male who comes in today with bilateral shoulder pain and weakness, left greater than right. He has known severe arthritis in his right shoulder, but the left is more problematic for him currently. He denies any specific injury. This has been painful and weak for several years. He has gotten injections for several years and this left shoulder, usually about every 3 months. He thinks that he has received at least 5 or 6 injections in that left shoulder, and has been getting decreasing efficacy of the injections over time. He is now at the point where he wishes to consider surgical intervention. Of note, he does have a history of coronary artery disease and is currently on aspirin 81 mg daily as well as Plavix. He also has COPD and is on inhalers, but no diabetes. Allergies Allergy/AdvReac Type Severity Reaction Status Date / Time No Known Allergies Allergy Verified 09/16/20 10:49 Home Medications Medication Instructions Recorded Confirmed Type Combivent Respimat 1 puff INHALATION TID 10/10/18 09/16/20 History Spiriva Respimat 2 puff INHALATION HS 10/10/18 09/16/20 History budesonide-formoterol [Symbicort] 1 puff INHALATION HS 10/10/18 09/16/20 History aspirin 81 mg tablet,delayed 81 mg PO QAM 30 Days #30 tab 03/07/20 09/16/20 Rx release lisinopril 5 mg tablet 5 mg PO QPM 30 Days #30 tab 03/07/20 09/16/20 Rx atorvastatin 80 mg PO QAM 07/18/20 09/16/20 History clopidogrel 75 mg PO QAM 07/18/20 09/16/20 History metoprolol succinate [Toprol XL] 50 mg PO QPM 07/18/20 09/16/20 History tramadol 50 mg PO BID PRN 09/02/20 09/16/20 History Past Med/Surg History Medical History CAD (coronary artery disease) s/p STEMI with MARIA GUADALUPE x 2 02/23/20 COPD (chronic obstructive pulmonary disease) History of [place] (myocardial infarction) 02/2020 (treated at [facility]) s/p MARIA GUADALUPE x2. Completed at-home cardiac rehab. Following now with [place] [facility]. HTN (hypertension) Hyperlipemia Ischemic cardiomyopathy EF 40-45% on echo 02/22/20. Osteoarthritis Surgical History History of cardiac catheterization s/p STEMI with MARIA GUADALUPE x 2 02/23/20 History of colonoscopy History of repair of right rotator cuff History of surgical amputation of finger History of tooth extraction Family History Other No family history of adverse response to anesthesia No pertinent family history Social History (Updated 09/16/20 @ 11:12 by Deena Hannon RN) Smoking Status: Current every day smoker Tobacco Type: Cigarettes Cigarettes Per Day: 10 CIGS A DAY; Second Hand Exposure: Yes (ON OCC); Hx Alcohol Use: No Hx Substance Use: No Preferred Language: Sierra Leonean Communication Ability: Effective Visual Impairment: No Limitations Hearing Ability: Normal Commercial Field Inspector Required: No Beliefs That Will Affect Care: None marital status: marital status details: Current Living Situation: Spouse current occupational status: retired Feels Safe at Home: Yes Assistive Devices: None Physical Exam Physical Exam: Examination of bilateral shoulders reveals severe limitation in shoulder range of motion bilaterally due to pain, with palpable crepitus during motion. Rotator cuff strength is globally weak bilaterally. He can only achieve about 45 degrees of active abduction on the left shoulder, and about 70 degrees on the right. External rotation is only to neutral on the left, and about 10 degrees on the right. Results & Data ([facility]) Diagnostic Findings Previous x-rays of bilateral shoulders from April 2020 were reviewed. They show obvious proximal migration of the humeral heads bilaterally. He has severe glenohumeral joint arthritis on the right, but relatively mild on the left. New MRI of the left shoulder from July 01 was reviewed. It shows a massive, retracted, full-thickness rotator cuff tear involving the entirety of the supraspinatus and infraspinatus tendons, and the upper border the subscapularis. The rotator cuff is retracted to the level of the glenoid rim. There is obvious proximal migration of the humeral head, and moderate arthritic degeneration within the glenohumeral joint, involving mostly the superior aspect of the glenoid. There is about 70% fatty atrophy of the supraspinatus muscle belly.
[~2020-10-03 07:37] MED LIST: ACETAMINOPHEN 500 MG TAB PO SCH; BUPIVACAINE 0.5 % 5 MG/1 ML PF 10ML VIAL ONE; CeleBREX 200 MG CAP PO SCH; FAMOTIDINE 20 MG TAB PO SCH; GABAPENTIN 300 MG CAP PO SCH; LR 15ML/HR IV SCH; METOCLOPRAMIDE HCL 10 MG TABLET PO SCH; ceFAZolin 1000MG 1,000 MG/7.5 ML SYR IV SCH; dexAMETHasone 4 MG TAB PO SCH
[2020-10-03] MEDS ORDERED: ONDANSETRON INJ 2 MG/ML 2 ML VIAL IV PRN ×2 (08:16→12:37)
[2020-10-03] MEDS ORDERED: ATROPINE SULFATE 0.1 MG/ML 10ML SYR IV PRN (08:16)
[2020-10-03] MEDS ORDERED: ePHEDrine sulfate 50 MG/ML AMP IV PRN (08:16)
[2020-10-03] MEDS ORDERED: fentaNYL citrate 100 MCG/2 ML VIAL IV PRN (08:16)
[2020-10-03] MEDS ORDERED: LIDOCAINE 2% 2 ML VIAL/AMP(20MG/ML) INFIL ONE ×2 (08:48→11:57)
--- NOTE | 2020-10-03 08:58 | History & Physical Bridge Note ---
Date of Service October 03, 2020 History & Physical Bridge Note I have examined the patient, reviewed the History & Physical and in the interval since the performance of the History & Physical I have noted the following changes of clinical significance: no changes noted
[2020-10-03] MEDS: TRANEXAMIC ACID / 0.7% NACL 1,000 MG/100 ML BAG IV SCH ×2 (09:25→09:29)
--- NOTE | 2020-10-03 11:09 | Post Operative Brief Note ---
Immediate Post Op Note v1 Date of Surgery October 03, 2020 Pre & Post Diagnosis Operation Date: 10/03/20 09:50 Pre-Op Diagnosis: Left Shoulder Rotator Cuff Tear Arthropathy Post-Op Diagnosis: Left Shoulder Rotator Cuff Tear Arthropathy I identified the patient and participated in the time-out.: Yes Procedure Operation Date: 10/03/20 09:50 Actual Procedures p Left Reverse Total Shoulder Arthroplasty (Left) - Eder Rosario M.D. Surgeon Eder Rosario Manager Commodities Klaus Khan PA-C Estimated Blood Loss 75 Findings Consistent with Post-Op Diagnosis
--- NOTE | 2020-10-03 11:14 | Operative Report ---
Post Operative Report Pre & Post Diagnosis Operation Date: 10/03/20 09:50 Pre-Op Diagnosis: Left Shoulder Rotator Cuff Tear Arthropathy Post-Op Diagnosis: Left Shoulder Rotator Cuff Tear Arthropathy I identified the patient and participated in the time-out.: Yes Procedure Operation Date: 10/03/20 09:50 Actual Procedures Left reverse Total Shoulder Arthroplasty (31608) Open biceps tenodesis (44444) - Eder Rosario M.D. Surgeon Eder Rosario Insole And Heel Stiffener Klaus Khan PA-C Estimated Blood Loss 75 Findings Consistent with Post-Op Diagnosis Specimens None Drains None Anesthesia Type General Regional Complications none Disposition Disposition: Recovery Room Indications Mr. Burroughs is a 69-year-old male with left shoulder pain and weakness. History, clinical exam, and imaging were consistent with the above diagnosis. Risks, benefits, and alternatives of surgery were explained in detail. The patient understood all this and wished to proceed. Description of Procedure Components Implanted: Tornier Reverse Total Shoulder implants Perform glenoid baseplate: 29mm, 15 degree full wedge with 9.5mm central screw and 5.0mm peripheral screws Glenosphere: 39mm, +3mm, eccentric offset Ascend Flex humeral stem: 5B Standard length (82mm) Humeral tray: 1.5mm offset, +0mm thickness Polyethylene insert: 39mm, +6mm thickness Patient was identified in the preoperative holding area. Operative extremity was marked. Regional blockade was given by the Anesthesia Staff. Patient was then brought back to the operating room, and general anesthesia was induced without complication. Appropriate weight-based dose of Ancef was infused intravenously for antibiotic prophylaxis. The patient was then placed in the beachchair position. Left arm was then prepped and draped in a standard sterile fashion using Chlorhexidine prep. A standard deltopectoral incision was made through the skin and subcutaneous tissue. The cephalic vein was identified and retracted medially. Small branches to the deltoid were coagulated as necessary. The clavipectoral fascia was then incised and the subdeltoid space was opened. The rotator cuff was found to be deficient, and I therefore decided to perform a reverse total shoulder arthroplasty as planned preoperatively. The biceps tendon was identified within the bicipital groove and tenodesed at the superior border of the pectoralis tendon with #2 FiberWire suture. The biceps tendon was then divided proximal to the tenodesis site and the rotator interval was opened. The proximal portion of the biceps tendon was excised. The remaining subscapularis tendon was elevated subperiosteally off of the lesser tuberosity. The glenohumeral joint was then dislocated, and large osteophytes were debrided with a ronguer. The humeral head cut was then made in the appropriate inclination and version using the cutting guide. The intramedullary canal of the humerus was then opened with a canal finder. The humeral canal was then sequentially broached to the appropriate size. A protective cap was then placed on top of the humeral trial. I then turned my attention to the glenoid. The proximal stump of the biceps tendon was excised, along with the labrum circumferentially around the glenoid. The Blueprint drill guide was then positioned on the glenoid, and the guidepin was then inserted. The 15 degree angled reamer was then inserted over the guidepin and an reamed to an appropriate depth. The central screw hole was drilled, and appropriate length 6.5mm central screw was selected. The baseplate was then implanted into place according to our preoperative Blueprint plan by tightening down the central screw. A peripheral 5mm nonlocking screw was placed posteriorly first for additional compression of the baseplate, and then additional locking 5 mm peripheral screws were placed to complete fixation of the baseplate. Glenosphere was then impacted and secured. A trial humeral tray and insert were placed on the trial humeral stem, and a trial reduction was carried out. Once I achieved acceptable joint stability and range of motion with the trial implants, the final humeral implants were assembled on the back table and then impacted into position. I then took the shoulder through full range of motion to ensure good stability and acceptable motion. Wound was then copiously irrigated with sterile saline. Deep fascia was closed with 0 V-lock suture. Subcutaneous tissue was closed with 2-0 V-lock, and skin was closed with 3-0 V-lock. Skin was then sealed with Dermabond. Sterile dressings were then applied with a waterproof silver-impregnated dressing, and the arm was placed into a sling. The patient was awakened from anesthesia and taken to the Post Anesthesia Care Unit in stable condition. There were no immediate complications from the procedure. I was present and scrubbed for the entire procedure, with the exception of final skin closure and dressing application. Due to the complex nature of the procedure, the entire surgery was performed with the operational assistance of Klaus Khan PA-C. The assistant program director, under direct supervision, was involved in the performance of all aspects of the surgical procedure including patient positioning, tissue retraction, hemostasis, wound closure, and dressing application. I attest to the content of the Intraoperative Record and any orders documented therein. Any exceptions are noted below.
[2020-10-03] MEDS ORDERED: ePHEDrine sulfate 50 MG/ML SYR IV ONE (11:57)
[2020-10-03] MEDS ORDERED: DEXAMETHASONE SOD INJ 4 MG/ML VIAL IV ONE (11:57)
[2020-10-03] MEDS ORDERED: fentaNYL citrate 100 MCG/2 ML VIAL IV ONE (11:57)
[2020-10-03] MEDS ORDERED: MIDAZOLAM HCL 1 MG/ML 2ML VIAL IV ONE (11:57)
[2020-10-03] MEDS ORDERED: GLYCOPYRROLATE 0.2 MG/ML VIAL IM ONE (11:57)
[2020-10-03] MEDS ORDERED: ONDANSETRON INJ 2 MG/ML 2 ML VIAL IV ONE (11:57)
[2020-10-03] MEDS ORDERED: PHENYLEPHRINE HCL 10 MG/ML VIAL IV ONE (11:57)
[2020-10-03] MEDS ORDERED: PROPOFOL IV EMULSION 10 MG/ML 20 ML VIAL IV ONE (11:57)
--- NOTE | 2020-10-03 12:01 | Anesthesiology Progress Note ---
Date of Service October 03, 2020 Anesthesia Post Procedure Vital Signs Vital Signs: Temp Pulse Pulse Resp BP Pulse Ox 10/03/20 11:50 69 14 104/58 L 97 10/03/20 11:40 60 12 100/54 L 98 10/03/20 11:32 96.8 F L 62 14 108/54 L 95 10/03/20 08:37 97.9 F 65 20 129/79 95 Pain Intensity Left Shoulder: Pain Intensity: 2 Transfer of Care Handoff Completed per policy Notes Mental Status: alert / awake / arousable and participated in evaluation Patient Amnestic to Procedure: Yes Nausea / Vomiting: adequately controlled Pain: adequately controlled Airway Patency, RR, SpO2: stable & adequate BP & HR: stable & adequate Hydration State: stable & adequate Anesthetic Complications: no major complications apparent and Pt Satisfied with anesthetic care
[2020-10-03] MEDS ORDERED: bisacodyL 10 MG SUPP PR PRN (12:37)
[2020-10-03] MEDS ORDERED: oxyCODONE HCL IR 5 MG TAB (IMMEDIATE RELEASE) PO PRN (12:37)
[2020-10-03] MEDS ORDERED: METOCLOPRAMIDE HCL INJ 5 MG/ML 2 ML VIAL IV PRN (12:37)
[2020-10-03] MEDS ORDERED: MAGNESIUM HYDROXIDE SUSP 30 ML UDC PO PRN (12:37)
[2020-10-03] MEDS ORDERED: NALOXONE HCL 0.4 MG/1 ML VIAL/CARP IV PRN (12:37)
[2020-10-03] MEDS: SODIUM CHLORIDE 0.9% 1000ML 1,000 ML IV SCH ×2 (13:21→21:36)
--- NOTE | 2020-10-03 13:44 | XRay Report ---
XR shoulder LT min 2V routine CLINICAL HISTORY: Post shoulder surgery COMPARISON STUDY: None. FINDINGS: Status post reverse left total shoulder arthroplasty. The hardware is intact. No fracture o r dislocation. Soft tissue gas at the left shoulder is consistent with expected postoperative change. IMPRESSION: Status post reverse left total shoulder arthroplasty. No evidence for complication. ACT 112: Negative or not required by law. Electronically signed by: Francisco Reyna M.D. 10/03/2020 1:42 PM
[2020-10-03] MEDS ORDERED: ACETAMINOPHEN 500 MG TAB PO SCH (14:00)
[2020-10-03] MEDS ORDERED: IPRATROPIUM BROMIDE/ALBUTEROL respimat INH INH SCH (14:00)
[2020-10-03] MEDS: Ipratropium HFA Inhaler (Combivent Respimat P&T Subs) INH SCH ×2 (14:13→19:33)
[2020-10-03] MEDS: Albuterol HFA 8 GM Inhaler (Combivent Respimat P&T Subs) INH SCH ×2 (14:14→19:33)
--- NOTE | 2020-10-03 16:15 | Hospitalist Consultation ---
Date of Consultation October 03, 2020 Assessment & Plan (1) Left rotator cuff tear arthropathy: 10/03/20 Left Total Shoulder Arthroplasty Reverse Eder Rosario (2) S/P drug eluting coronary stent placement: pt underwent MARIA GUADALUPE to RCA and Cx 03/05, was supposed to be on dual antiplatelet agents for one year but he decided that he wanted to accept the risk and pursue surgery despite the risk of stent re occlusion, he should be restarted on dual agents of aspirin and plavix at the time of discharge Pt is known to have chronic systolic heart failure and testing aroung the time of his IWMI shows EF to be 40-45% He remains on Metoprolol and lisinopril plus atorvastatin, his post op blood pressures are a bit soft but has maintained a MAP and in on tele status (3) COPD (chronic obstructive pulmonary disease): pt is stable post operatively, on combivent, spiriva and symbicort History of Present Illness Attending Physician: 10/03/20 Left Total Shoulder Arthroplasty Reverse Surgeon: Eder Rosario Allergies Allergy/AdvReac Type Severity Reaction Status Date / Time No Known Allergies Allergy Verified 10/03/20 08:24 Home Medications Medication Instructions Recorded Confirmed Type Combivent Respimat 1 puff INHALATION TID 10/10/18 10/03/20 History Spiriva Respimat 2 puff INHALATION HS 10/10/18 10/03/20 History budesonide-formoterol [Symbicort] 1 puff INHALATION HS 10/10/18 10/03/20 History lisinopril 5 mg tablet 5 mg PO QPM 30 Days #30 tab 03/07/20 10/03/20 Rx atorvastatin 80 mg PO QAM 07/18/20 10/03/20 History clopidogrel 75 mg PO QAM 07/18/20 10/03/20 History metoprolol succinate [Toprol XL] 50 mg PO QPM 07/18/20 10/03/20 History tramadol 50 mg PO BID PRN 09/02/20 10/03/20 History aspirin 81 mg PO QPM 10/03/20 10/03/20 History Patient History Medical History (Updated 10/03/20 @ 16:09 by Pineda Brown MD) CAD (coronary artery disease) s/p STEMI with MARIA GUADALUPE x 2 02/23/20 COPD (chronic obstructive pulmonary disease) History of [place] (myocardial infarction) 02/2020 (treated at [facility]) s/p MARIA GUADALUPE x2. Completed at-home cardiac rehab. Following now with [facility]. HTN (hypertension) Hyperlipemia Ischemic cardiomyopathy EF 40-45% on echo 02/22/20. Osteoarthritis Surgical History History of cardiac catheterization s/p STEMI with MARIA GUADALUPE x 2 02/23/20 History of colonoscopy History of repair of right rotator cuff History of surgical amputation of finger History of tooth extraction Family History Other No family history of adverse response to anesthesia No pertinent family history Social History (Updated 09/16/20 @ 11:12 by Deena Hannon RN) Smoking Status: Current every day smoker Tobacco Type: Cigarettes Cigarettes Per Day: 10 CIGS A DAY; Second Hand Exposure: Yes (ON OCC); Do You Dip or Chew Tobacco: No; Hx Alcohol Use: No Hx Substance Use: No Preferred Language: Mohawk Communication Ability: Effective Visual Impairment: No Limitations Hearing Ability: Normal Business Intelligence Manager Required: No Beliefs That Will Affect Care: None marital status: marital status details: Current Living Situation: Spouse current occupational status: retired Other Information That Helps Us Care for You: No Feels Safe at Home: Yes Safety Concerns: Feels Safe At This Time Assistive Devices: None Review of Systems Review of Systems: Mild distress and fatigue no headache, blurry or double vision no speech or swallowing issues no chest pain, pressure or palpitations no shortness of breath, cough or wheezes no abdominal pain, nausea or vomiting, diarrhea or constipation no dysuria, hematuria or frequency Bilateral shoulder joint pain left shoulder has bandage in place no back pain, CVA tenderness or radicular pain no bruising, bleeding or rashes no focal signs of weakness or numbness or altered sensation no complaints of anxiety or depression.. Physical Exam Physical Exam: The patient appeared well nourished and normally developed. Vital signs as documented. Head exam is normocephalic atraumatic Neck is without JVD, thyromegaly, or carotid bruits. Lungs are clear to auscultation, no focal loss of breath sounds Cardiac exam, Rhythm is regular.. No murmurs, rubs or gallops. Abdominal exam reveals normal bowel sounds, soft non tender, no masses Extremities left shoulder is a bandage in place he is good distal sensation and strength right shoulder is his la posta shoulder with significant osteoarthritis c annot raise but raise it more than 90 degrees Neurologic exam is alert and oriented, no focal loss of strength or sensation Skin is without bruises or rashes Psychologically is without concerns for anxiety or depression Results & Data Results & Data ([facility]) Vital Signs (Past 12 Hours) Vital Signs Temp Pulse Pulse Pulse Resp BP BP 10/03/20 14:22 70 25 H 86/64 L 10/03/20 14:14 73 16 10/03/20 14:00 72 15 94/60 L 10/03/20 13:42 71 20 92/54 L 10/03/20 13:00 70 12 93/57 L 10/03/20 12:37 97.7 F 10/03/20 12:31 76 10/03/20 12:20 75 19 100/56 L 10/03/20 12:02 97.0 F L 75 18 99/58 L 10/03/20 11:50 69 14 104/58 L 10/03/20 11:40 60 12 100/54 L 10/03/20 11:32 96.8 F L 62 14 108/54 L 10/03/20 08:37 97.9 F 65 20 129/79 Pulse Ox 10/03/20 14:22 10/03/20 14:14 94 10/03/20 14:00 93 10/03/20 13:42 92 10/03/20 13:00 94 10/03/20 12:37 10/03/20 12:31 10/03/20 12:20 93 10/03/20 12:02 93 10/03/20 11:50 97 10/03/20 11:40 98 10/03/20 11:32 95 10/03/20 08:37 95 PG Care Time/CCT Total # of Minutes Spent Total Time Spent with Patient: Total time spent is greater than 50% in coordination of care (as documented) at patient's floor/unit and/or counseling patient: Coding Level of Care Code 96608 Inpt Consult Level 4 Diagnoses Left rotator cuff tear arthropathy M75.102; M12.812 S/P drug eluting coronary stent placement Z95.5 COPD (chronic obstructive pulmonary disease) J44.9
[2020-10-03] MEDS: IBUPROFEN 600 MG TAB PO SCH ×2 (17:05→22:43)
[2020-10-03] MEDS: ceFAZolin 1000MG 1,000 MG/7.5 ML SYR IV SCH (17:05)
--- NOTE | 2020-10-03 18:39 | Orthopedic Progress Note ---
Date of Service October 03, 2020 Assessment & Plan (1) Left rotator cuff tear arthropathy: Postoperative day 0 status post left reverse total shoulder arthroplasty doing very well. Antibiotics x24 hours. May do active range of motion as tolerated once his nerve block wears off. No resisted elbow flexion or resisted forearm supination. Plan for likely discharge home tomorrow. Follow-up in orthopedics clinic in 10 to 14 days. Admission and Anticipated Discharge Date Admission Date: October 03, 2020 Subjective Postop check. Doing very well. Resting comfortably. Denies any pain in his left shoulder. Regional block is still working, with no sensation or motor function in his hand yet. He is eating and drinking without any nausea or vomiting. Physical Exam Physical Exam: Left shoulder dressings are clean, dry, and intact. Results & Data ([facility]) Vital Signs (Past 12 Hours) Vital Signs Temp Pulse Pulse Pulse Resp BP BP 10/03/20 16:00 70 10/03/20 14:22 70 25 H 86/64 L 10/03/20 14:14 73 16 10/03/20 14:00 72 15 94/60 L 10/03/20 13:42 71 20 92/54 L 10/03/20 13:00 70 12 93/57 L 10/03/20 12:37 36.5 C 10/03/20 12:31 76 10/03/20 12:20 75 19 100/56 L 10/03/20 12:02 36.1 C L 75 18 99/58 L 10/03/20 11:50 69 14 104/58 L 10/03/20 11:40 60 12 100/54 L 10/03/20 11:32 36 C L 62 14 108/54 L 10/03/20 08:37 36.6 C 65 20 129/79 Pulse Ox 10/03/20 16:00 10/03/20 14:22 10/03/20 14:14 94 10/03/20 14:00 93 10/03/20 13:42 92 10/03/20 13:00 94 10/03/20 12:37 10/03/20 12:31 10/03/20 12:20 93 10/03/20 12:02 93 10/03/20 11:50 97 10/03/20 11:40 98 10/03/20 11:32 95 10/03/20 08:37 95
[2020-10-03] MEDS: DOCUSATE SODIUM 100 MG CAP PO SCH (19:35)
[2020-10-03] MEDS: ACETAMINOPHEN 500 MG TAB PO SCH (19:35)
[2020-10-03] MEDS ORDERED: lisinopril 5 MG TAB PO SCH (21:00)
[2020-10-03] MEDS ORDERED: UMECLIDINIUM BROMIDE 62.5MCG/BLISTER 7 PUFFS/INHALER INH SCH (21:00)
[2020-10-03] MEDS ORDERED: SENNA 8.6 MG TAB PO SCH (21:00)
[2020-10-03] MEDS ORDERED: METOPROLOL SUCC 50MG EXT REL TAB PO SCH (21:00)
[2020-10-03] MEDS ORDERED: FLUTICASONE/VILANTEROL 100/25MCG 14 PUFFS/INHALER INH SCH (21:00)
[2020-10-04] MEDS: ceFAZolin 1000MG 1,000 MG/7.5 ML SYR IV SCH (01:16)
[2020-10-04] MEDS: ACETAMINOPHEN 500 MG TAB PO SCH ×2 (01:16→07:50)
[2020-10-04] MEDS: IBUPROFEN 600 MG TAB PO SCH ×2 (04:30→10:39)
[2020-10-04 04:51] LABS: Hematocrit (blood only) 34.8 % (42-52); Hemoglobin 11.8 g/dL (14.0-18.0); Immature Granulocytes # (auto) 0.02 K/uL (0.00-0.02); Immature Granulocytes % (auto) 0.2 %; Lymphocytes % (auto) 4.6 %; Mean Corpuscular Hemoglobin 33.6 pg (25-34); Mean Corpuscular Hgb Conc 33.9 g/dL (32-36); Mean Corpuscular Volume 99.1 fL (80-100); Mean Platelet Volume 10.8 fL (7.4-10.4); Monocytes % (auto) 7.7 %; Neutrophils # (auto) 11.43 K/uL (1.4-6.5); Neutrophils % (auto) 87.5 %; Platelet Count 168 K/uL (130-400); RDW Coefficient of Variation 13.2 % (11.5-14.5); RDW Standard Deviation 48.1 fL (36.4-46.3); Red Blood Count 3.51 M/uL (4.7-6.1); White Blood Count 13.05 K/uL (4.8-10.8)
[2020-10-04 05:09] LABS: BUN Creatinine Ratio 25.5 (10-20); Calcium 8.3 mg/dl (8.5-10.1); Creatinine Clr Calc Pharmacy 74.9 ml/min; Est GFR (African American) 105.1 ml/min; Est GFR (Non-African American) 90.7 ml/min; Potassium 4.4 mmol/L (3.5-5.1)
[2020-10-04] MEDS: Albuterol HFA 8 GM Inhaler (Combivent Respimat P&T Subs) INH SCH (07:00)
[2020-10-04] MEDS: Ipratropium HFA Inhaler (Combivent Respimat P&T Subs) INH SCH (07:01)
[2020-10-04] MEDS: DOCUSATE SODIUM 100 MG CAP PO SCH (07:55)
--- NOTE | 2020-10-04 08:02 | Orthopedic Progress Note ---
Date of Service October 04, 2020 Assessment & Plan (1) Status post reverse arthroplasty of left shoulder: Admission and Anticipated Discharge Date Admission Date: 69 yo male stable POD #1 s/p left reverse TSA 1. Med management 2. DVT prophylaxis- resume Plavix, ASA, SCDs 3. PT/OT 4. D/C planning- home w/ OPPT Subjective Pt resting in bed, denies pain, states arm still numb, no complaints Physical Exam Physical Exam: Dressing intact, pt unable to extend wrist/fingers Results & Data ([facility]) Vital Signs (Past 12 Hours) Vital Signs Temp Pulse Pulse Resp BP Pulse Ox 10/04/20 07:03 79 20 92 10/04/20 05:00 36.6 C 10/04/20 01:00 36.7 C 10/04/20 00:40 70 18 90 10/04/20 00:30 69 20 89 L 10/04/20 00:20 70 20 90 10/04/20 00:10 71 19 89 L 10/04/20 00:00 70 15 91/49 L 89 L 10/03/20 23:50 70 21 90 10/03/20 23:40 71 20 89 L 10/03/20 23:30 72 19 89 L 10/03/20 23:20 72 20 90 10/03/20 23:10 72 18 89 L 10/03/20 23:01 70 19 89 L 10/03/20 23:00 70 21 91/52 L 89 L 10/03/20 22:50 70 18 89 L 10/03/20 22:40 70 19 89 L 10/03/20 22:30 71 18 89 L 10/03/20 22:20 68 18 88 L 10/03/20 22:10 68 18 89 L 10/03/20 22:01 68 19 88 L 10/03/20 22:00 69 17 85/56 L 89 L 10/03/20 21:50 69 17 89 L 10/03/20 21:40 71 18 92 10/03/20 21:39 36.6 C 10/03/20 21:30 66 20 10/03/20 21:20 68 18 10/03/20 21:10 69 17 10/03/20 21:01 66 13 10/03/20 21:00 68 17 99/61 L 10/03/20 20:50 68 20 10/03/20 20:40 68 19 10/03/20 20:30 80 21 10/03/20 20:20 67 14 10/03/20 20:10 68 17 10/03/20 20:02 73 18 103/49 L 10/03/20 20:00 83 20
[2020-10-04] MEDS ORDERED: CLOPIDOGREL BISULFATE 75 MG TAB PO SCH (09:00)
[2020-10-04] MEDS ORDERED: ATORVASTATIN 40 MG TAB PO SCH (09:00)
[2020-10-04] MEDS ORDERED: MULTIVITAMIN TAB PO SCH (09:00)
[2020-10-04] MEDS ORDERED: SODIUM CHLORIDE 0.9% 500 ML IV SCH (10:00)
--- NOTE | 2020-10-04 10:43 | XRay Report ---
XR chest 1V portable HISTORY: 69 years-old Male sob acute shortness of breath COMPARISON: Chest radiograph 07/29/2020 TECHNIQUE: AP view of the chest FINDINGS: Reverse left shoulder total joint arthroplasty with expected postoperative soft tissue swelling and d eep tissue air. Cardiomediastinal and hilar silhouettes are within normal limits. Calcific plaque of the thoracic aorta. No pneumothorax, pleural effusion or overt pulmonary edema. Linear subsegmental l eft lung base opacities with hyperinflation and emphysema. Degenerative changes of the spine and righ t shoulder. IMPRESSION: 1. Emphysema with linear subsegmental left lung base atelectasis. 2. Reverse left shoulder total joint arthroplasty with expected postoperative changes. ACT 112: Negative or not required by law. The above report was generated using voice recognition software. It may contain grammatical, syntax o r spelling errors. Electronically signed by: Darinel Urban M.D. 10/04/2020 10:42 AM
--- NOTE | 2020-10-04 10:45 | Hospitalist Progress Note ---
Date of Service October 04, 2020 Assessment & Plan (1) Left rotator cuff tear arthropathy: POD#1 s/p LEFT total shoulder Dr. Rosario EBL 75cc PT/ot/pain management per primary h/h dropped post-operatively -- acute blood loss anemia from surgery in pt on DAPT (resumed post-operatively) and dilutional from IVF. Plans for d/c this afternoon (2) S/P drug eluting coronary stent placement: pt underwent MARIA GUADALUPE to RCA and Cx 03/05, was supposed to be on dual antiplatelet agents for one year but he decided that he wanted to accept the risk and pursue surgery despite the risk of stent re occlusion, he should be restarted on dual agents of aspirin and plavix at the time of discharge Pt is known to have chronic systolic heart failure and testing around the time of his IWMI shows EF to be 40-45% He remains on Metoprolol and lisinopril plus atorvastatin, his post op blood pressures are a bit soft but has maintained a MAP and in on tele status He did assume risks, and is aware to attempt to wait until 1 year before entertaining possible surgery on his right shoulder No CP ASA/Plavix resumed by surgery HTN -- Maintained on metoprolol and lisinopril (held last evening for low BP) BP this am recorded as 91/49 but when seen in room was 130s/70s. Continue home medications at discharge (3) COPD (chronic obstructive pulmonary disease): pt is stable post operatively, on combivent, spiriva and symbicort 92% on RA and states breathing at baseline Dispo: d/c today Thank you for allowing hospitalist service to participate in the care of Mr Burroughs. Hospitalist signed off Admission and Anticipated Discharge Date Admission Date: October 03, 2020 Supervising Physician Co-Signing Physician Notes PA Supervision Note: I did not personally see or examine the patient today, but I verified all lee points of JENNIFER Herring's assessment and plan with the following exceptions/additions: None Subjective Patient evaluated this morning. Doing well. Now able to flex/extend fingers. Pain controlled. Shortness of breath at his usual level for "years" nothing worse than usual. No fever, chills, chest pain, sputum production, abdominal pain, n/v/d at this time. ASA/plavix resumed. He plans on having other shoulder done soon --> instructed would be loya to wait at least until February when DAPT for 1 year. He said "we will see". Review of Systems Review of Systems: All systems reviewed & are unremarkable except as noted in HPI & below Physical Exam Physical Exam: The patient appeared well nourished and normally developed. Head exam is normocephalic atraumatic Neck is without JVD, thyromegaly, or carotid bruits. Lungs are clear to auscultation, no focal loss of breath sounds Cardiac exam, Rhythm is regular.. No murmurs, rubs or gallops. Abdominal exam reveals normal bowel sounds, soft non tender, no masses Extremities left shoulder is a bandage in place he is good distal sensation and strength right shoulder is his [place] shoulder with significant osteoarthritis cannot raise but raise it more than 90 degrees. sling intact. NVI, pulses palpable. Right shoulder ROM to 45 degrees and unable to raise above head (chronic) Neurologic exam is alert and oriented, no focal loss of strength or sensation Skin is without bruises or rashes Psychologically is without concerns for anxiety or depression Results & Data Results & Data ([facility]) Vital Signs (Past 12 Hours) Vital Signs Temp Pulse Pulse Resp BP Pulse Ox 10/04/20 07:03 79 20 92 10/04/20 05:00 36.6 C 10/04/20 01:00 36.7 C 10/04/20 00:40 70 18 90 10/04/20 00:30 69 20 89 L 10/04/20 00:20 70 20 90 10/04/20 00:10 71 19 89 L 10/04/20 00:00 70 15 91/49 L 89 L 10/03/20 23:50 70 21 90 10/03/20 23:40 71 20 89 L 10/03/20 23:30 72 19 89 L 10/03/20 23:20 72 20 90 10/03/20 23:10 72 18 89 L 10/03/20 23:01 70 19 89 L 10/03/20 23:00 70 21 91/52 L 89 L 10/03/20 22:50 70 18 89 L Laboratory Results 10/04/20 10/04/20 10/03/20 Range/Units 04:27 04:27 14:30 WBC 13.05 H (4.8-10.8) K/uL RBC 3.51 L (4.7-6.1) M/uL Hgb 11.8 L (14.0-18.0) g/dL Hct 34.8 L (42-52) % MCV 99.1 (80-100) fL MCH 33.6 (25-34) pg MCHC 33.9 (32-36) g/dL RDW Std Deviation 48.1 H (36.4-46.3) fL RDW Coeff of Best 13.2 (11.5-14.5) % Plt Count 168 (130-400) K/uL MPV 10.8 H (7.4-10.4) fL Immature Gran % (Auto) 0.2 % Neut % (Auto) 87.5 % Lymph % (Auto) 4.6 % Dickens % (Auto) 7.7 % Eos % (Auto) 0.0 % Baso % (Auto) 0.0 % Neut # (Auto) 11.43 H (1.4-6.5) K/uL Lymph # (Auto) 0.60 L (1.2-3.4) K/uL Dickens # (Auto) 1.00 H (0.11-0.59) K/uL Eos # (Auto) 0.00 (0-0.5) K/uL Baso # (Auto) 0.00 (0-0.2) K/uL Immature Gran # (Auto) 0.02 (0.00-0.02) K/uL Sodium 142 (136-145) mmol/L Potassium 4.4 (3.5-5.1) mmol/L Chloride 113 H (98-107) mmol/L Carbon Dioxide 23 (21-32) mmol/L Anion Gap 6.0 (3-11) BUN 21 H (7-18) mg/dl Creatinine 0.81 (0.6-1.4) mg/dl Est Cr Clr Drug Dosing 74.9 ml/min Est GFR ( Amer) 105.1 ml/min Est GFR (Non-Af Amer) 90.7 ml/min BUN/Creatinine Ratio 25.5 H (10-20) Glucose 113 H (70-99) mg/dl Calcium 8.3 L (8.5-10.1) mg/dl Nasal Screen MRSA (PCR) Negative (Negative) PG Care Time/CCT Total # of Minutes Spent Total Time Spent with Patient: Total time spent is greater than 50% in coordination of care (as documented) at patient's floor/unit and/or counseling patient: Coding Level of Care Code 98431 Subseq Hosp Care Lvl 2 Diagnoses Left rotator cuff tear arthropathy M75.102; M12.812 S/P drug eluting coronary stent placement Z95.5 COPD (chronic obstructive pulmonary disease) J44.9
[2020-10-04] MEDS ORDERED: ASPIRIN 81 MG ECTAB PO SCH (11:15)
--- NOTE | 2020-10-04 12:50 | Discharge Summary ---
Date of Service October 04, 2020 Admission HPI Per Admitting Provider Mr. Burroughs is a 69-year-old [id number] male who comes in today with bilateral shoulder pain and weakness, left greater than right. He has known severe arthritis in his right shoulder, but the left is more problematic for him currently. He denies any specific injury. This has been painful and weak for several years. He has gotten injections for several years and this left shoulder, usually about every 3 months. He thinks that he has received at least 5 or 6 injections in that left shoulder, and has been getting decreasing efficacy of the injections over time. He is now at the point where he wishes to consider surgical intervention. Of note, he does have a history of coronary artery disease and is currently on aspirin 81 mg daily as well as Plavix. He also has COPD and is on inhalers, but no diabetes. Principal Diagnosis Left shoulder rotator cuff tear arthropathy Discharge Data Allergies Allergy/AdvReac Type Severity Reaction Status Date / Time No Known Allergies Allergy Verified 10/03/20 08:24 Consultations 10/03/20 12:37 Consult Hospitalist Routine Procedures Performed Operation Date: 10/03/20 09:50 Actual Procedures p Left Total Shoulder Arthroplasty Reverse(Left) - Eder Rosario M.D. Ordered Studies 10/03/20 05:00 US - OR guided needle placemen Routine 10/03/20 08:38 US guide vascular access Stat Hospital Course (1) Status post reverse arthroplasty of left shoulder: Patient underwent a left reverse total shoulder arthroplasty on the date of admission. Patient tolerated the procedure well. Postoperatively, he was transferred to the PCU for more intensive monitoring due to his significant coronary artery disease history and relatively recent stenting. He did very well and had no problems postoperatively. He was followed by the medicine service, and they cleared him for discharge on postoperative day 1. Perioperative antibiotic coverage was initiated, and continued for 24 hours postoperatively. DVT prophylaxis was initiated consisting of SCDs and aspirin 325 mg daily. Perioperative pain control regimen was transitioned to strictly oral pain medications by postoperative day 1. On postoperative day 1 the patient was doing very well. Pain was well controlled, and patient was mobilizing well with therapy. Patient was determined be safe and ready for discharge to home. Total Time Total Time Spent Total Time Spent (In Minutes): 15 Discharge Plan Discharge Items Patient Disposition: Home - Self-Care Reason For Visit: Left Shoulder Rotator Cuff Tear Arthropathy Discharge Diagnosis: Left shoulder rotator cuff tear arthropathy Condition on Discharge: Good Activity: Per Instructions section Non-emergency contact: Primary Care Provider, Surgeon and Scrub Tech Call non-emergency contact if: your pain is not controlled, your temperature is above 101.5, your wound has increased redness and your wound has increased drainage Follow-up/Referrals: Eder Rosario M.D. [Physician] - 10/18/20 9:15 am (You have an follow- up appointment with Dr. Rosario. You also have a therapy appointment for 10/08/20 @ 9:30am, if you need anything regarding this therapy appointment please call Dr. Rosario's office.) PCP,NO [Primary Care Provider] - Diet: Heart Healthy Addtl Attending Provider Instructions: Things to Watch Out For -Go to the Emergency Room if you have sudden onset of nausea, vomiting, chest pain, shortness of breath, or uncontrollable pain. -Call the clinic or go to the Emergency Room if you have a sudden increase in the amount of wound drainage or the drainage becomes thick, yellow or green, or foul-smelling. -For routine questions, call the clinic at [phone] during regular business hours (8am-5pm). For urgent issues after regular business hours, you may call the clinic to be connected to the on-call physician. Dressings -A special waterproof, silver-impregnated dressing was placed on your shoulder. Keep this dressing in place for 1 week after surgery. You may shower with the waterproof dressing in place, but do not soak the dressing in the bathtub or pool. -One week after surgery, you may remove the waterproof dressing. You may continue to shower, and let water run BRIEFLY over the incision, but do not soak the incision in the bathtub or pool for 2 weeks. You may also gently clean the incision with mild soap and water; pat the incision dry after cleaning-do not rub the incision. Apply a new dressing daily thereafter. Shoulder Exercises -Keep your operative shoulder in the sling for comfort, except as detailed below. -You should come out of the sling 4-5 times a day for passive pendulum exercises: lean over and swing your arm in a circular pattern. -You should also do active-assisted forward flexion exercises: use your opposite hand to lift your operative arm forward to 90 degrees. -Do not flex your elbow (curl motion) or supinate your forearm (rotating palm up) against resistance. -Do not use your arm to push yourself up out of bed or up from a seated position. Ice Pack -You may use an ice pack for pain relief. You should use it 20-30 minutes at a time. Place a towel between the ice pack and your skin to prevent frostbite. -You should use the ice pack fairly regularly for the first 1-2 weeks after surgery to help reduce pain and inflammation. -About 2 weeks after your surgery, you should start using heat to loosen up your shoulder prior to doing your stretching exercises, then use the cooling sleeve after your exercises are complete to reduce swelling and pain. Pain Medicines -Your prescriptions for pain medications have already been sent to the pharmacy on file at [facility]. -You have been prescribed an anti-inflammatory (Motrin/ibuprofen) and a non- narcotic pain medicine (Tylenol/acetaminophen). These are your primary pain medications. Take them each every 6 hours as instructed. It is recommended that you stagger these medicines every 3 hours (i.e. take ibuprofen at 8:00 am, then acetaminophen at 11:00 am, then ibuprofen at 2:00 pm, etc) -DO NOT take any additional anti-inflammatories (Advil, Aleve/naproxen, Mobic/meloxicam, Celebrex) or any additional Tylenol/acetaminophen products with these prescribed medications. -You have also been prescribed an additional narcotic pain medication (oxycodon e). Take this medicine ONLY for breakthrough pain not controlled by the ibuprofen and acetaminophen. -Do not drive or operate heavy machinery while taking the narcotic medication. -Common side effects of narcotic pain medicines include itching, nausea, constipation, and feeling "loopy". However, if you develop a rash or hives, stop taking the medicine and call the clinic. If you develop swelling in your throat or difficulty breathing, go to the Emergency Room or call 911 IMMEDIATELY. -You may take over the counter stool softeners if needed for constipation. Aspirin -Take a full strength (325mg) aspirin every day for 4 weeks (28 days) to prevent blood clots. -If you were taking a baby aspirin (81mg) prior to surgery, you may resume taking this 81mg dose after you complete the 28-day course of the 325mg strength dose; do not take the 325mg dose in addition to your 81mg dose. -Be aware that you will bruise easier while taking Aspirin; this is normal. However, if you develop a significantly large area of swelling after an injury, or have a cut that will not stop bleeding, call the clinic or go to the Emergency Room immediately. Pending Studies at Discharge: No Stand-Alone Forms: My [facility] Medications and DC Order Prescriptions: Continued lisinopril [Zestril] 5 mg tablet 5 mg PO QPM 30 Days Qty: 30 RF: 11 budesonide-formoterol [Symbicort] 160-4.5 mcg/actuation Hfa Aerosol Inhaler 1 puff INHALATION HS RF: 0 Spiriva Respimat 2.5 mcg/actuation Mist 2 puff INHALATION HS RF: 0 Combivent Respimat 20-100 mcg/actuation Mist 1 puff INHALATION TID RF: 0 atorvastatin 80 mg tablet 80 mg PO QAM RF: 0 metoprolol succinate [Toprol XL] 50 mg tablet extended release 24 hr 50 mg PO QPM RF: 0 clopidogrel 75 mg tablet 75 mg PO QAM RF: 0 aspirin 81 mg tablet,delayed release (DR/EC) 81 mg PO QPM RF: 0 tramadol 50 mg Tablet 50 mg PO BID PRN (Reason: Pain) RF: 0 Discharge Orders: Discharge Order (Routine); Ordered 10/04/20 Ordered By: Klaus Khan Admission Data Admit Date/Time: 10/03/20 12:37 Attending Provider: Eder Rosario Admit Provider: Eder Rosario Primary Care Provider: PCP,NO Other Providers: [facility] ; Shira Farias Other Interventions: Discharge Summary Assessment (RN) Last Done: 10/04/20 11:04
== END 2020-10-04 11:58 | disposition home or self-care (01) ==
LOC: ASU 07:37 → 1E 12:37

== ENCOUNTER 2020-10-05 21:26 | Inpatient (IN) ==
[2020-10-05] MEDS ORDERED: ALBUT/IPRATROP 3MG/0.5MG NEB 3 ML VIAL INH STA (21:36)
[2020-10-05] MEDS ORDERED: methylPREDNISolone 125 MG/2 ML VIAL IV STA (21:36)
--- NOTE | 2020-10-05 21:43 | Emergency Department Note ---
Impression & Plan COPD (chronic obstructive pulmonary disease), Hypoxia ED Provider Note NAME: RENNY RAY AGE: 69 SEX: M : 1950 ARRIVES VIA: Walk-In INFORMANT: Patient ED PROVIDER(S): Sung To DO CHIEF COMPLAINT: shortness of breath HPI: Patient is a 69-year-old male who presents the for shortness of breath. He had a left shoulder replacement performed on the by [facility]. He notes shortness of breath has been present since then. He has a history of COPD. Still smoking. He is using his inhalers but no significant improvement. He takes Plavix. Denies any chest pain, belly pain, nausea, vomiting, or diarrhea. No swelling of the cast. No other exacerbating or remitting factors. ROS: See above HPI for pertinent positives & negatives. A total of 10 systems reviewed and were otherwise negative. PAST MEDICAL HISTORY:See Below PAST SURGICAL HISTORY:See Below FAMILY HISTORY:See Below SOCIAL HISTORY:See Below HOME MEDICATIONS:See Below ALLERGIES:See Below VITALS:See Below PHYSICAL EXAMINATION: GENERAL: Sitting up in bed, alert, ill-appearing, disheveled EYE EXAM: normal conjunctiva. OROPHARYNX: no exudate, no erythema, lips, buccal mucosa, and tongue normal and mucous membranes are moist NECK: supple, no nuchal rigidity, no adenopathy, non-tender LUNGS: Diffuse wheezing bilaterally with minimal air movement. Normal chest wall mechanics HEART: Tacky, S1 normal and S2 normal ABDOMEN: abdomen soft, non-tender, normo-active bowel sounds, no masses, no rebound or guarding. BACK: Back is symmetrical on inspection and there is no deformity, no midline tenderness, no CVA tenderness. SKIN: no rashes and no bruising UPPER EXTREMITIES: upper extremities are grossly normal. LOWER EXTREMITIES: No pitting edema. NEURO EXAM: Normal sensorium, cranial nerves II-XII grossly intact, normal speech, no gross weakness of arms, no gross weakness of legs. MEDICAL DECISION MAKING: patient is a 69-year-old male who presents the ER for shortness of breath which has been present since the and gradually getting worse. IV was established blood work was obtained. He was found to be hypoxic at 83% on room air. He does not normally wear oxygen. He is placed on oxygen mask and remained on that throughout his stay in the ER. Labs showed a mild leukocytosis. No significant anemia. D-dimer was elevated at 2100 and he had a recent left shoulder surgery. BMP with slightly elevated chloride. LFTs b ilirubin was unremarkable. Troponin was negative. proBNP was normal. Covid was negative. Chest x-ray without any infiltrate. He was given hour-long neb treatment. He was given steroids. CT angio of the chest was negative. He was discussed with the hospitalist will be observed for COPD exacerbation. Triage Nursing notes reviewed. Limited review of prior medical records performed Vital Signs: reviewed and remarkable for tachycardic Differential diagnosis: Differential diagnoses includes but is not limited to pneumonia, bronchitis, COPD/Asthma exacerbation, pneumothorax, pulmonary embolism, congestive heart failure, acute coronary syndrome ER treatment provided: See below Diagnostics interpreted by me: ECG: Sinus tachycardia rate 103 Normal axis Inferior Q waves Mild ST depressions in the lateral leads QTC 432 Cardiac Monitoring: An order was placed for continuous cardiac monitoring. The monitor shows a rate of 90 with sinus rhythm. Laboratory studies: As stated above and show below. Imaging studies: Portable AP upright 1 view the chest was clean CT angio chest was clean Consultation(s): Discussed with Dr. Jeremiah Smith for further evaluation Procedures: none Critical Care: I have personally spent 33 minutes of critical care time in the direct management of this patient. This includes bedside care, interpretation of diagnostic studies, and testing, discussion with consultants, patient, and family members, and other required patient management activities. This 33 minutes is in excess of all separately billable procedures. Past Med/Surg History Medical History (Updated 10/06/20 @ 01:08 by Sung To DO) CAD (coronary artery disease) s/p STEMI with [facility] GUADALUPE x 2 02/23/20 COPD (chronic obstructive pulmonary disease) History of ME (myocardial infarction) 02/2020 (treated at [facility]) s/p MARIA GUADALUPE x2. Completed at-home cardiac rehab. Following now with [place] [facility]. HTN (hypertension) Hyperlipemia Ischemic cardiomyopathy EF 40-45% on echo 02/22/20. Osteoarthritis Surgical History (Updated 10/04/20 @ 08:00 by Klaus Khan) History of cardiac catheterization s/p STEMI with MARIA GUADALUPE x 2 02/23/20 History of colonoscopy History of repair of right rotator cuff History of surgical amputation of finger History of tooth extraction Family History Other No family history of adverse response to anesthesia No pertinent family history Social History (Updated 09/16/20 @ 11:12 by Deena Hannon RN) Smoking Status: Former smoker Tobacco Type: Cigarettes Cigarettes Per Day: 10 CIGS A DAY; Second Hand Exposure: Yes (ON OCC); Hx Alcohol Use: No Hx Substance Use: No Preferred Language: Persian Communication Ability: Effective Visual Impairment: No Limitations Hearing Ability: Normal Patient Resource Specialist Required: No Beliefs That Will Affect Care: None marital status: marital status details: Current Living Situation: Spouse current occupational status: retired Feels Safe at Home: Yes Assistive Devices: None Allergies Allergies Allergy/AdvReac Type Severity Reaction Status Date / Time clopidogrel [From Plavix] AdvReac Severe SHORT OF Verified 10/05/20 22:33 BREATH PER PT. Home Meds Home Medications Medication Instructions Recorded Confirmed Combivent Respimat 1 puff INHALATION TID 10/10/18 10/05/20 Spiriva Respimat 2 puff INHALATION HS 10/10/18 10/05/20 budesonide-formoterol [Symbicort] 1 puff INHALATION HS 10/10/18 10/05/20 atorvastatin 80 mg PO QAM 07/18/20 10/05/20 metoprolol succinate [Toprol XL] 50 mg PO QAM 07/18/20 10/05/20 tramadol 50 mg PO BID PRN 09/02/20 10/05/20 aspirin 81 mg PO QPM 10/03/20 10/05/20 Previous Rx's Medication Instructions Recorded lisinopril 5 mg tablet 5 mg PO QPM 30 Days #30 tab 03/07/20 Results & Data (ED) Vital Signs Vital Signs - 24 hr 10/05/20 21:26 10/05/20 21:29 10/05/20 21:37 Temperature 36.9 C Temperature Source Temporal Artery Scan Pulse Rate 108 H 104 H Pulse Rate [Finger] Pulse Rate from SpO2 Sensor 104 H Pulse Rhythm Respiratory Rate 26 H 21 Respiratory Effort / Characteristics Labored Respiratory Pattern Blood Pressure 118/86 181/85 H Blood Pressure Mean 96 117 Blood Pressure Position Sitting Pulse Oximetry 83 L 91 94 Oxygen Delivery Method Room Air Oxymask Oxygen Flow Rate 2 Sepsis Recent Fever Within 48 Hours No Sepsis New/Unexplained Change in Mental Status No Sepsis Action Taken by Nursing No Action Required 10/05/20 21:44 10/05/20 21:50 10/05/20 21:53 Temperature Temperature Source Pulse Rate 103 H 100 H Pulse Rate [Finger] Pulse Rate from SpO2 Sensor 104 H 100 H Pulse Rhythm Regular Respiratory Rate 22 19 Respiratory Effort / Characteristics Spontaneous Short of Breath Respiratory Pattern Tachypnea Blood Pressure Blood Pressure Mean Blood Pressure Position Pulse Oximetry 94 95 Oxygen Delivery Method Oxymask Oxygen Flow Rate 2 Sepsis Recent Fever Within 48 Hours Sepsis New/Unexplained Change in Mental Status Sepsis Action Taken by Nursing 10/05/20 22:00 10/05/20 22:08 10/05/20 22:10 Temperature Temperature Source Pulse Rate 96 H 95 H Pulse Rate [Finger] 93 H Pulse Rate from SpO2 Sensor 96 H 95 H Pulse Rhythm Respiratory Rate 23 28 H 15 Respiratory Effort / Characteristics Spontaneous Short of Breath Respiratory Pattern Blood Pressure Blood Pressure Mean Blood Pressure Position Pulse Oximetry 95 95 94 Oxygen Delivery Method Oxymask Oxygen Flow Rate 2 Sepsis Recent Fever Within 48 Hours Sepsis New/Unexplained Change in Mental Status Sepsis Action Taken by Nursing 10/05/20 22:20 10/05/20 22:30 10/05/20 22:40 Temperature Temperature Source Pulse Rate 86 89 87 Pulse Rate [Finger] Pulse Rate from SpO2 Sensor 86 89 87 Pulse Rhythm Respiratory Rate 18 19 18 Respiratory Effort / Characteristics Respiratory Pattern Blood Pressure Blood Pressure Mean Blood Pressure Position Pulse Oximetry 98 98 98 Oxygen Delivery Method Oxygen Flow Rate Sepsis Recent Fever Within 48 Hours Sepsis New/Unexplained Change in Mental Status Sepsis Action Taken by Nursing 10/05/20 22:50 10/05/20 23:00 10/05/20 23:10 Temperature Temperature Source Pulse Rate 92 H 89 98 H Pulse Rate [Finger] Pulse Rate from SpO2 Sensor 92 H 89 99 H Pulse Rhythm Respiratory Rate 23 22 15 Respiratory Effort / Characteristics Respiratory Pattern Blood Pressure Blood Pressure Mean Blood Pressure Position Pulse Oximetry 97 97 88 L Oxygen Delivery Method Oxygen Flow Rate Sepsis Recent Fever Within 48 Hours Sepsis New/Unexplained Change in Mental Status Sepsis Action Taken by Nursing 10/05/20 23:20 10/05/20 23:24 10/05/20 23:30 Temperature Temperature Source Pulse Rate 96 H 92 H 93 H Pulse Rate [Finger] Pulse Rate from SpO2 Sensor 96 H 92 H 93 H Pulse Rhythm Respiratory Rate 18 19 18 Respiratory Effort / Characteristics Respiratory Pattern Blood Pressure 102/61 123/61 Blood Pressure Mean 74 81 Blood Pressure Position Pulse Oximetry 86 L 92 95 Oxygen Delivery Method Oxygen Flow Rate Sepsis Recent Fever Within 48 Hours Sepsis New/Unexplained Change in Mental Status Sepsis Action Taken by Nursing 10/05/20 23:31 10/05/20 23:40 10/06/20 00:08 Temperature Temperature Source Pulse Rate 91 H 93 H 94 H Pulse Rate [Finger] Pulse Rate from SpO2 Sensor 91 H 93 H 94 H Pulse Rhythm Respiratory Rate 24 20 20 Respiratory Effort / Characteristics Respiratory Pattern Blood Pressure Blood Pressure Mean Blood Pressure Position Pulse Oximetry 95 95 97 Oxygen Delivery Method Oxygen Flow Rate Sepsis Recent Fever Within 48 Hours Sepsis New/Unexplained Change in Mental Status Sepsis Action Taken by Nursing 10/06/20 00:10 10/06/20 00:20 10/06/20 00:30 Temperature Temperature Source Pulse Rate 96 H 90 88 Pulse Rate [Finger] Pulse Rate from SpO2 Sensor 93 H 90 88 Pulse Rhythm Respiratory Rate 20 21 18 Respiratory Effort / Characteristics Respiratory Pattern Blood Pressure 124/68 Blood Pressure Mean 86 Blood Pressure Position Pulse Oximetry 96 95 95 Oxygen Delivery Method Oxygen Flow Rate Sepsis Recent Fever Within 48 Hours Sepsis New/Unexplained Change in Mental Status Sepsis Action Taken by Nursing 10/06/20 00:31 10/06/20 00:40 10/06/20 00:50 Temperature Temperature Source Pulse Rate 88 87 84 Pulse Rate [Finger] Pulse Rate from SpO2 Sensor 88 87 84 Pulse Rhythm Respiratory Rate 24 20 15 Respiratory Effort / Characteristics Respiratory Pattern Blood Pressure Blood Pressure Mean Blood Pressure Position Pulse Oximetry 95 97 92 Oxygen Delivery Method Oxygen Flow Rate Sepsis Recent Fever Within 48 Hours Sepsis New/Unexplained Change in Mental Status Sepsis Action Taken by Nursing Laboratory Data Result diagrams: 10/05/20 21:45 10/05/20 21:45 Lab Results 10/05/20 10/05/20 10/05/20 Range/Units 21:45 21:45 21:45 WBC 12.03 H (4.8-10.8) K/uL RBC 4.01 L (4.7-6.1) M/uL Hgb 13.3 L (14.0-18.0) g/dL Hct 39.5 L (42-52) % MCV 98.5 (80-100) fL MCH 33.2 (25-34) pg MCHC 33.7 (32-36) g/dL RDW Std Deviation 48.6 H (36.4-46.3) fL RDW Coeff of Best 13.5 (11.5-14.5) % Plt Count 187 (130-400) K/uL MPV 11.1 H (7.4-10.4) fL Immature Gran % (Auto) 0.2 % Neut % (Auto) 72.8 % Lymph % (Auto) 15.5 % Brooks % (Auto) 9.4 % Eos % (Auto) 1.9 % Baso % (Auto) 0.2 % Neut # (Auto) 8.76 H (1.4-6.5) K/uL Lymph # (Auto) 1.87 (1.2-3.4) K/uL Brooks # (Auto) 1.13 H (0.11-0.59) K/uL Eos # (Auto) 0.23 (0-0.5) K/uL Baso # (Auto) 0.02 (0-0.2) K/uL Immature Gran # (Auto) 0.02 (0.00-0.02) K/uL PT 10.1 (9.0-12.0) Seconds INR 1.0 (0.9-1.1) D-Dimer 2100 H* (0-500) ug/L FEU Sodium 139 (136-145) mmol/L Potassium 3.9 (3.5-5.1) mmol/L Chloride 109 H (98-107) mmol/L Carbon Dioxide 26 (21-32) mmol/L Anion Gap 4.0 (3-11) BUN 13 (7-18) mg/dl Creatinine 0.69 (0.6-1.4) mg/dl Est Cr Clr Drug Dosing Not Reportable Est GFR ( Amer) 112.3 ml/min Est GFR (Non-Af Amer) 96.9 ml/min BUN/Creatinine Ratio 19.0 (10-20) Glucose 108 H (70-99) mg/dl Calcium 9.0 (8.5-10.1) mg/dl Total Bilirubin 0.4 (0.2-1) mg/dl AST 32 (15-37) U/L ALT 27 (12-78) U/L Alkaline Phosphatase 99 (45-117) U/L Troponin I < 0.015 (0-0.045) ng/ml NT-Pro-B Natriuret Pep 233 (0-900) pg/ml Total Protein 7.1 (6.4-8.2) gm/dl Albumin 3.7 (3.4-5.0) gm/dl Globulin 3.4 (2.5-4.0) gm/dl Albumin/Globulin Ratio 1.1 (0.9-2) COVID-19 Eval Order SARS-CoV-2 (PCR) (Negative) 10/05/20 10/05/20 Range/Units 21:47 21:47 WBC (4.8-10.8) K/uL RBC (4.7-6.1) M/uL Hgb (14.0-18.0) g/dL Hct (42-52) % MCV (80-100) fL MCH (25-34) pg MCHC (32-36) g/dL RDW Std Deviation (36.4-46.3) fL RDW Coeff of Best (11.5-14.5) % Plt Count (130-400) K/uL MPV (7.4-10.4) fL Immature Gran % (Auto) % Neut % (Auto) % Lymph % (Auto) % Brooks % (Auto) % Eos % (Auto) % Baso % (Auto) % Neut # (Auto) (1.4-6.5) K/uL Lymph # (Auto) (1.2-3.4) K/uL Brooks # (Auto) (0.11-0.59) K/uL Eos # (Auto) (0-0.5) K/uL Baso # (Auto) (0-0.2) K/uL Immature Gran # (Auto) (0.00-0.02) K/uL PT (9.0-12.0) Seconds INR (0.9-1.1) D-Dimer (0-500) ug/L FEU Sodium (136-145) mmol/L Potassium (3.5-5.1) mmol/L Chloride (98-107) mmol/L Carbon Dioxide (21-32) mmol/L Anion Gap (3-11) BUN (7-18) mg/dl Creatinine (0.6-1.4) mg/dl Est Cr Clr Drug Dosing Est GFR ( Amer) ml/min Est GFR (Non-Af Amer) ml/min BUN/Creatinine Ratio (10-20) Glucose (70-99) mg/dl Calcium (8.5-10.1) mg/dl Total Bilirubin (0.2-1) mg/dl AST (15-37) U/L ALT (12-78) U/L Alkaline Phosphatase (45-117) U/L Troponin I (0-0.045) ng/ml NT-Pro-B Natriuret Pep (0-900) pg/ml Total Protein (6.4-8.2) gm/dl Albumin (3.4-5.0) gm/dl Globulin (2.5-4.0) gm/dl Albumin/Globulin Ratio (0.9-2) COVID-19 Eval Order Covid19 at [facility] SARS-CoV-2 (PCR) NEGATIVE (Negative) Administered Medications Discontinued Medications Albuterol (Albut/Ipratrop 3mg/0.5mg Neb 3 Ml Vial) 12 ml INH ONE STA Stop: 10/05/20 21:37 Last Admin: 10/05/20 22:08 Dose: 12 ml Documented by: [id number] Ioversol (Optiray 350 500ml) 120 ml IV ONCE ONE Stop: 10/06/20 00:26 Last Admin: 10/06/20 00:25 Dose: 120 ml Documented by: [id number] Methylprednisolone (Methylprednisolone 125 Mg/2 Ml Vial) 60 mg IV NOW STA Stop: 10/05/20 21:37 Last Admin: 10/05/20 21:50 Dose: 60 mg Documented by: [id number] Imaging Data Radiologist's Impression: Chest X-Ray 10/05/20 21:36 XR chest 1V portable HISTORY: 69 years-old Male Dyspnea acute shortness of breath COMPARISON: Chest radiograph 10/04/2020 TECHNIQUE: Portable AP view the chest FINDINGS: Cardiomediastinal and hilar silhouettes are within normal limits. Emphysema with chronic interstitial coarsening. Improved aeration of the left lung base. Chronic blunting of the costophrenic angles without pneumothorax, pleural effus ion or overt pulmonary edema. No airspace consolidation typical for pneumonia. Degenerative changes of the spine and right shoulder. Partially imaged left shoulder arthroplasty. IMPRESSION: Emphysema without acute process. ACT 112: Negative or not required by law. The above report was generated using voice recognition software. It may contain grammatical, syntax or spelling errors. Electronically signed by: Darinel Urban M.D. 10/05/2020 11:03 PM Discharge Plan Visit Data Chief Complaint: Shortness of Breath/Dyspnea Stated Complaint: SOB ED Provider: Sung To Discharge Problem: COPD (chronic obstructive pulmonary disease), Hypoxia Forms Stand Alone Forms: My [facility] Prescriptions Prescriptions: No Action lisinopril [Zestril] 5 mg tablet 5 mg PO QPM 30 Days Qty: 30 RF: 11 budesonide-formoterol [Symbicort] 160-4.5 mcg/actuation Hfa Aerosol Inhaler 1 puff INHALATION HS RF: 0 Spiriva Respimat 2.5 mcg/actuation Mist 2 puff INHALATION HS RF: 0 Combivent Respimat 20-100 mcg/actuation Mist 1 puff INHALATION TID RF: 0 atorvastatin 80 mg tablet 80 mg PO QAM RF: 0 metoprolol succinate [Toprol XL] 50 mg tablet extended release 24 hr 50 mg PO QAM RF: 0 aspirin 81 mg tablet,delayed release (DR/EC) 81 mg PO QPM RF: 0 tramadol 50 mg Tablet 50 mg PO BID PRN (Reason: Pain) RF: 0 Discharge Problem: COPD (chronic obstructive pulmonary disease) Qualifiers: COPD type: unspecified COPD Qualified Code(s): J44.9 - Chronic obstructive pulmonary disease, unspecified
[2020-10-05 21:55] LABS: Basophils # (auto) 0.02 K/uL (0-0.2); Basophils % (auto) 0.2 %; Eosinophils # (auto) 0.23 K/uL (0-0.5); Eosinophils % (auto) 1.9 %; Hematocrit (blood only) 39.5 % (42-52); Hemoglobin 13.3 g/dL (14.0-18.0); Immature Granulocytes # (auto) 0.02 K/uL (0.00-0.02); Immature Granulocytes % (auto) 0.2 %; Lymphocytes # (auto) 1.87 K/uL (1.2-3.4); Lymphocytes % (auto) 15.5 %; Mean Corpuscular Hemoglobin 33.2 pg (25-34); Mean Corpuscular Hgb Conc 33.7 g/dL (32-36); Mean Corpuscular Volume 98.5 fL (80-100); Mean Platelet Volume 11.1 fL (7.4-10.4); Monocytes # (auto) 1.13 K/uL (0.11-0.59); Monocytes % (auto) 9.4 %; Neutrophils # (auto) 8.76 K/uL (1.4-6.5); Neutrophils % (auto) 72.8 %; Platelet Count 187 K/uL (130-400); RDW Coefficient of Variation 13.5 % (11.5-14.5); RDW Standard Deviation 48.6 fL (36.4-46.3); Red Blood Count 4.01 M/uL (4.7-6.1); White Blood Count 12.03 K/uL (4.8-10.8)
[2020-10-05 22:10] LABS: Prothrombin Time 10.1 Seconds (9.0-12.0)
[2020-10-05 22:14] LABS: D Dimer 2100 ug/L FEU (0-500)
[2020-10-05 22:15] LABS: Alanine Aminotransferase 27 U/L (12-78); Albumin Level 3.7 gm/dl (3.4-5.0); Aspartate Aminotransferase 32 U/L (15-37); Blood Urea Nitrogen 13 mg/dl (7-18); Carbon Dioxide 26 mmol/L (21-32); Chloride 109 mmol/L (98-107); Est GFR (African American) 112.3 ml/min; Est GFR (Non-African American) 96.9 ml/min; Glucose 108 mg/dl (70-99); Potassium 3.9 mmol/L (3.5-5.1); Sodium 139 mmol/L (136-145)
[2020-10-05 22:16] LABS: Albumin Globulin Ratio 1.1 (0.9-2); Alkaline Phosphatase 99 U/L (45-117); Bilirubin,Total 0.4 mg/dl (0.2-1); Globulin 3.4 gm/dl (2.5-4.0); NT Pro B Type Natriuretic Pept 233 pg/ml (0-900); Total Protein 7.1 gm/dl (6.4-8.2); Troponin I < 0.015 ng/ml (0-0.045)
--- NOTE | 2020-10-05 23:04 | XRay Report ---
XR chest 1V portable HISTORY: 69 years-old Male Dyspnea acute shortness of breath COMPARISON: Chest radiograph 10/04/2020 TECHNIQUE: Portable AP view the chest FINDINGS: Cardiomediastinal and hilar silhouettes are within normal limits. Emphysema with chronic interstitial coarsening. Improved aeration of the left lung base. Chronic blunting of the costophrenic angles wit hout pneumothorax, pleural effusion or overt pulmonary edema. No airspace consolidation typical for p neumonia. Degenerative changes of the spine and right shoulder. Partially imaged left shoulder arthro plasty. IMPRESSION: Emphysema without acute process. ACT 112: Negative or not required by law. The above report was generated using voice recognition software. It may contain grammatical, syntax o r spelling errors. Electronically signed by: Darinel Urban M.D. 10/05/2020 11:03 PM
[2020-10-06] MEDS ORDERED: OPTIRAY 350 500ml IV ONE (00:25)
--- NOTE | 2020-10-06 01:56 | History & Physical Report ---
Date of Service October 06, 2020 Assessment & Plan (1) Hypoxia: Patient is a 69 year old male with PMHx COPD, CAD s/p stent x2, HTN, HLD, osteoarthritis, ischemic cardiomyopathy that noted worsening shortness of breath starting earlier this morning in addition to wheezing and SOB on exertion. Hypoxia secondary to COPD Exacerbation -Hypoxic as low as 83% in the ED, though patient did state he smoked a cigarette 30 minutes prior to coming in. -In ED given Duoneb treatment and Methylprednisolone 60mg IV to good improvement -CXR without obvious concerns of pneumonia, however, noting emphysematous changes -Continue supplemental O2 titrate >88% -Monitor I/O -EKG in AM -Continuous telemetry monitoring for afib -ABG in AM -Duoneb q4h scheduled -IV methylprednisolone 60mg q8h -Continue home Symbicort, Combivent, and Spiriva Elevated D-Dimer -CTA chest negative for acute PE -No calf tenderness -COVID-19 negative CAD -S/P MARIA GUADALUPE x2 on 02/23/20 -Continue ASA -Continue Plavix (upon further discussion patient feels he had reaction to BRILINTA and not Plavix in the past) -Continue Atorvastatin -Continue Metoprolol -Continue Lisinopril HTN -Continue Metoprolol -Continue Lisinopril Dispo: Med/Surg Telemetry for continuous cardiac monitoring in addition to treatments for COPD exacerbation FEN: HH diet DVT: Lovenox Code: Full (2) COPD (chronic obstructive pulmonary disease): History of Present Illness Chief Complaint: shortness of breath Primary Care Provider: NO PCP Patient is a 69 year old male with PMHx COPD, CAD s/p stent x2, HTN, HLD, osteoarthritis, ischemic cardiomyopathy that noted worsening shortness of breath starting earlier this morning in addition to wheezing and SOB on exertion. Patient notes that he has been compliant with his COPD medications and his CAD medications. He notes that around 9AM he was having worsening SOB with exertion and his noted that he was also having wheezing at those times. He states that at rest he felt relatively fine. He had no chest pain or pressure during any of the episodes of SOB or SOB on exertion. He states he has been eating and drinking properly. He denies any fever, chills, cough, sputum production, dysuria, chest pain, chest pressure, abdominal pain, nausea, vomiting. In the ED he was given 1 hour Duoneb treatment and 60mg IV methylprednisolone. Patient is currently on 2L Oxymask and notes he does not feel SOB and is able to hold a conversation without becoming SOB. Of note zoien is POD2 a L total shoulder with Dr. Rosario. Med Hx: CAD s/p STEMI and MARIA GUADALUPE x2 02/23/20, COPD, HTN, HLD, Osteoarthritis, Ischemic Cardiomyopathy Surg Hx: MARIA GUADALUPE x2, R rotator cuff repair, L rotator cuff repair and L total shoulder Soc Hx: Smokes 1/2 PPD, No alcohol, No illicit drug use Allergies Allergy/AdvReac Type Severity Reaction Status Date / Time clopidogrel [From Plavix] AdvReac Severe SHORT OF Verified 10/05/20 22:33 BREATH PER PT. Home Medications Medication Instructions Recorded Confirmed Type Combivent Respimat 1 puff INHALATION TID 10/10/18 10/05/20 History Spiriva Respimat 2 puff INHALATION HS 10/10/18 10/05/20 History budesonide-formoterol [Symbicort] 1 puff INHALATION HS 10/10/18 10/05/20 History lisinopril 5 mg tablet 5 mg PO QPM 30 Days #30 tab 03/07/20 10/05/20 Rx atorvastatin 80 mg PO QAM 07/18/20 10/05/20 History metoprolol succinate [Toprol XL] 50 mg PO QAM 07/18/20 10/05/20 History tramadol 50 mg PO BID PRN 09/02/20 10/05/20 History aspirin 81 mg PO QPM 10/03/20 10/05/20 History Past Med/Surg History Medical History (Updated 10/06/20 @ 01:08 by Sung To DO) CAD (coronary artery disease) s/p STEMI with MARIA GUAADLUPE x 2 02/23/20 COPD (chronic obstructive pulmonary disease) History of ND (myocardial infarction) 02/2020 (treated at [facility]) s/p MARIA GUADALUPE x2. Completed at-home cardiac rehab. Following now with [facility]. HTN (hypertension) Hyperlipemia Ischemic cardiomyopathy EF 40-45% on echo 02/22/20. Osteoarthritis Surgical History (Updated 10/04/20 @ 08:00 by Klaus Khan) History of cardiac catheterization s/p STEMI with MARIA GUADALUPE x 2 02/23/20 History of colonoscopy History of repair of right rotator cuff History of surgical amputation of finger History of tooth extraction Family History Other No family history of adverse response to anesthesia No pertinent family history Social History (Updated 09/16/20 @ 11:12 by Deena Hannon RN) Smoking Status: Current every day smoker Tobacco Type: Cigarettes Cigarettes Per Day: 10 per day; Second Hand Exposure: Yes; Do You Dip or Chew Tobacco: No; Tobacco Cessation Education Requested by Patient: No Hx Alcohol Use: No Hx Substance Use: No Preferred Language: Serbian Communication Ability: Effective Visual Impairment: No Limitations Hearing Ability: Normal Historic Sites Registrar Required: No Beliefs That Will Affect Care: None marital status: marital status details: Current Living Situation: Spouse current occupational status: retired Other Information That Helps Us Care for You: No Feels Safe at Home: Yes Safety Concerns: Feels Safe At This Time Assistive Devices: Oxygen - Continuous Review of Systems Review of Systems: All systems reviewed & are unremarkable except as noted in Subjective Physical Exam Constitutional: WD/WN, vitals as above Eyes: PERRL, conjunctivae normal, anicteric sclerae ENMT: external ear and nose normal, oropharynx normal Neck: trachea midline, no thyromegaly Respiratory: normal respiratory effort (on 2L Oxymask ); no respiratory distress, no cough, not tachypneic and no stridor Auscultation: lungs clear to auscultation bilaterally and + diminished lung sounds; no crackles, no rales and no wheezes Cardiovascular: RRR, no murmur, no edema Extremities: no calf tenderness Gastrointestinal (Abdomen): normal bowel sounds, soft, nontender, no hepatosplenomegaly Skin: no rashes, warm and dry Neurologic: PERRL, EOMI, accommodation nl, no face palsy, no dysarthria Psychiatric: A+Ox3, euthymic affect Results & Data Results & Data ([facility]) Vital Signs (Past 12 Hours) Vital Signs Temp Pulse Pulse Resp BP Pulse Ox 10/06/20 00:50 84 15 92 10/06/20 00:40 87 20 97 10/06/20 00:31 88 24 95 10/06/20 00:30 88 18 124/68 95 10/06/20 00:20 90 21 95 10/06/20 00:10 96 H 20 96 10/06/20 00:08 94 H 20 97 10/05/20 23:40 93 H 20 95 10/05/20 23:31 91 H 24 95 10/05/20 23:30 93 H 18 123/61 95 10/05/20 23:24 92 H 19 102/61 92 10/05/20 23:20 96 H 18 86 L 10/05/20 23:10 98 H 15 88 L 10/05/20 23:00 89 22 97 10/05/20 22:50 92 H 23 97 10/05/20 22:40 87 18 98 10/05/20 22:30 89 19 98 10/05/20 22:20 86 18 98 10/05/20 22:10 95 H 15 94 10/05/20 22:08 93 H 28 H 95 10/05/20 22:00 96 H 23 95 10/05/20 21:50 100 H 19 95 10/05/20 21:44 103 H 22 94 10/05/20 21:37 104 H 21 181/85 H 94 10/05/20 21:29 91 10/05/20 21:26 36.9 C 108 H 26 H 118/86 83 L Supervising Physician Co-Signing Physician Notes Attending addendum: I have physically seen this patient, have supervised the medical residents activities, and agree with the H&P unless as otherwise noted. Assessment and Plan: COPD exacerbation with hypoxia- Nasal cannula oxygen, titrate to keep pulse ox 90 to 92% Duonebs every 4 hours while awake and every 2 hours when necessary. Methylprednisolone 60 mg IV every 8 hours Guaifenesin extended release 60 mg p.o. twice daily Continue outpatient Symbicort, Combivent and Spiriva Azithromycin 500 mg IV daily CAD/hypertension/status post MARIA GUADALUPE x2- Continue aspirin, Plavix, metoprolol and lisinopril Hyperlipidemia- Continue atorvastatin Remaining orders and notations as noted Resident Activity Tracking Resident Involvement: Resident Care Provided Care Provided: Adult Hospital Medicine (1) COPD (chronic obstructive pulmonary disease) COPD type: unspecified COPD Qualified Code(s): J44.9 - Chronic obstructive pulmonary disease, unspecified
[2020-10-06] MEDS ORDERED: ALBUTEROL HFA 8 GM INHALER INH PRN (03:56)
[2020-10-06] MEDS ORDERED: methylPREDNISolone 125 MG/2 ML VIAL IV SCH (03:56)
[2020-10-06] MEDS ORDERED: ONDANSETRON INJ 2 MG/ML 2 ML VIAL IV PRN (03:56)
[2020-10-06] MEDS ORDERED: ACETAMINOPHEN 325 MG TAB PO PRN (03:56)
[2020-10-06] MEDS ORDERED: Albuterol HFA 8 GM Inhaler (Combivent Respimat P&T Subs) INH PRN (04:34)
[2020-10-06 04:35] LABS: Appearance Urine Clear (Clear); Bacteria Urine Automated Negative (Negative); Bilirubin Urine Negative (Negative); Blood Urine Trace (Negative); Color Urine Yellow; Glucose Urine UA Negative (Negative); Ketones Urine 1+ (Negative); Leukocyte Esterase Urine Negative (Negative); Nitrite Urine Negative (Negative); Protein Urine Negative (Negative); RBC Urine Automated 0-4 /hpf (0-4); Specific Gravity Urine > 1.045 (1.000-1.030); Urobilinogen Urine Negative (Negative)
[2020-10-06] MEDS ORDERED: Ipratropium HFA Inhaler (Combivent Respimat P&T Subs) INH PRN (04:35)
[2020-10-06] MEDS: ALBUT/IPRATROP 3MG/0.5MG NEB 3 ML VIAL NEB SCH ×6 (05:07→22:23)
[2020-10-06] MEDS: methylPREDNISolone 60 MG in SYRINGE 0 ML IV SCH ×3 (05:26→22:43)
[2020-10-06 07:20] LABS: Hematocrit (blood only) 36.5 % (42-52); Hemoglobin 12.4 g/dL (14.0-18.0); Lymphocytes # (auto) 0.39 K/uL (1.2-3.4); Lymphocytes % (auto) 4.2 %; Mean Corpuscular Hemoglobin 33.5 pg (25-34); Mean Corpuscular Volume 98.6 fL (80-100); Mean Platelet Volume 10.9 fL (7.4-10.4); Monocytes # (auto) 0.16 K/uL (0.11-0.59); Monocytes % (auto) 1.7 %; Neutrophils # (auto) 8.64 K/uL (1.4-6.5); Neutrophils % (auto) 94.1 %; Platelet Count 170 K/uL (130-400); RDW Coefficient of Variation 13.5 % (11.5-14.5); RDW Standard Deviation 48.9 fL (36.4-46.3); White Blood Count 9.19 K/uL (4.8-10.8)
[2020-10-06 07:25] LABS: Base Excess ABG 1.2 mEq/L (-9-1.8); HCO3 ABG 25 mmol/L (19-24); Oxygen Saturation ABG 94.6 % (90-95); PCO2 ABG 36 mmHg (35-46); PO2 ABG 65 mmHg (80-95); pH ABG 7.46 (7.35-7.45)
[2020-10-06 07:26] LABS: Allen Test Pos (Pos)
--- NOTE | 2020-10-06 07:31 | Communication Note ---
Date of Service: October 06, 2020 Patient admitted after midnight, following is an update communication by primary service S: Patient seen at bedside this morning by resident service. Patient reports he feels greatly improved, felt 5% of his normal baseline when he came into the hospital but now feels closer to 95%. Continues to use 2 L of nasal cannula to maintain saturation above 88%. He does not have an home oxygen requirement. He reports he usually uses inhalers, and has not missed any doses. He has chronic productive sputum which is usually clear, he has not had an increase in sputum volume or change in sputum character. Denies fever/chills/sweats. Endorses half pack per day of tobacco use via cigarettes, not interested in quitting. Uses used oil to heat his home. O: Sitting up, no acute distress. Bilateral end expiratory wheezes worsened by forced expiration. No respiratory distress, symmetrical chest rise. No accessory muscle use of breathing. Regular cardiac rhythm without murmur/rubs. No pitting edema. A/P: Patient is a 69 year old male with PMHx COPD, CAD s/p stent x2, HTN, HLD, osteoarthritis, ischemic cardiomyopathy that noted worsening shortness of breath starting earlier this morning in addition to wheezing and SOB on exertion. Hypoxia secondary to COPD Exacerbation -Hypoxic as low as 83% in the ED, though patient did state he smoked a cigarette 30 minutes prior to coming in. -In ED given Duoneb treatment and Methylprednisolone 60mg IV -CXR without obvious concerns of pneumonia, however, noting emphysematous changes -Continue supplemental O2 titrate >88% -EKG shows normal sinus rhythm, no signs of acute ischemia -ABG very mild alkalosis, 7.46/36/65/25 -Duoneb q4h scheduled -IV methylprednisolone 60mg q8h. 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 Simon. In agreement with the documented findings as noted in the resident documentation with any exceptions or additions as noted here. Resting comfortably in bed on room air without significant cough, conversant without shortness of breath. On examination, S1/S2 nl RRR no MCG. decreased breath sounds throughout without appreciable wheeze "hours" following last treatment. Abd NT/ND BS+ve COPD with exacerbation - O2 per protocol. Likely rapid taper of steroids and transition to PO therapy. Continue inhaler therapy and duoneb as noted. Anemia - h/o GIB recently per patient report without new black/tarry/red stools - monitor CBC, encourage colon cancer screening. Lead level as noted. CAD s/p MARIA GUADALUPE x 2 - stable BP on steroid therapy. Continue ASA/plavix, toprol, statin, lisinopril Else see resident documentation as noted. Resident Activity Tracking Resident Involvement: Resident Care Provided Care Provided: Adult Hospital Medicine
[2020-10-06 07:35] LABS: Albumin Level 3.2 gm/dl (3.4-5.0); BUN Creatinine Ratio 19.9 (10-20); Calcium 9.1 mg/dl (8.5-10.1); Creatinine Clr Calc Pharmacy 108.3 ml/min; Est GFR (African American) 122.3 ml/min; Est GFR (Non-African American) 105.5 ml/min; Magnesium 2.4 mg/dl (1.8-2.4); Potassium 4.2 mmol/L (3.5-5.1)
[2020-10-06 07:38] LABS: Bilirubin,Total 0.4 mg/dl (0.2-1); Globulin 3.2 gm/dl (2.5-4.0); Total Protein 6.4 gm/dl (6.4-8.2)
[2020-10-06] MEDS: METOPROLOL SUCC 50MG EXT REL TAB PO SCH (07:57)
[2020-10-06] MEDS: ATORVASTATIN 40 MG TAB PO SCH (07:57)
[2020-10-06] MEDS: CLOPIDOGREL BISULFATE 75 MG TAB PO SCH (07:57)
[2020-10-06] MEDS: ENOXAPARIN INJ 40 MG/0.4 ML SYR SQ SCH (07:57)
--- NOTE | 2020-10-06 08:33 | CT Scan Report ---
CHEST CTA for PULMONARY ARTERIES CT DOSE: 710.44 mGycm HISTORY: Shortness of breath. Postop. Assess for pulmonary embolus. TECHNIQUE: Multiaxial CT images of the chest were performed following the intravenous administration of contrast to evaluate the pulmonary arteries. Maximal intensity projection images were also obtaine d. A dose lowering technique was utilized adhering to the principles of ALARA. COMPARISON STUDY: None. FINDINGS: Normal caliber thoracic aorta with no evidence for dissection. Mild calcified plaque within the thoracic aorta. The heart is normal in size. Trace pericardial effusion. No effusions. No fillin g defects within the pulmonary arteries to suggest a pulmonary embolus. No mediastinal or hilar lymph adenopathy. Limited views of the upper abdomen demonstrate a normal liver, spleen, and adrenal glands . There is mild elevation of the left hemidiaphragm. Trace edema and soft tissue gas within the left shoulder and anterior chest. This favors recent postoperative change from the left total shoulder art hroplasty. No acute fractures within the visualized osseous structures. The central airways are paten t. No pneumothorax. Moderate emphysema. A few bibasilar linear densities suggesting subsegmental atel ectasis. Otherwise, no focal lung consolidations to suggest pneumonia. Hypodense right renal lesion w hich is only partially imaged on this study. This favors a cyst. IMPRESSION: 1. No evidence for pulmonary embolus. 2. Emphysema. 3. Status post reverse left total shoulder arthroplasty. This likely accounts for the subcutaneous ed michi/emphysema within the left anterior chest/shoulder. ACT 112: Negative or not required by law. Electronically signed by: Francisco Reyna M.D. 10/06/2020 8:32 AM
[2020-10-06] MEDS ORDERED: IPRATROPIUM BROMIDE/ALBUTEROL respimat INH INH SCH (09:00)
[2020-10-06] MEDS ORDERED: FLUTICASONE/VILANTEROL 200/25MCG 14 PUFFS/INHALER INH SCH (21:00)
[2020-10-06] MEDS ORDERED: lisinopril 5 MG TAB PO SCH (21:00)
[2020-10-06] MEDS ORDERED: UMECLIDINIUM BROMIDE 62.5MCG/BLISTER 7 PUFFS/INHALER INH SCH (21:00)
[2020-10-06] MEDS ORDERED: ASPIRIN 81 MG ECTAB PO SCH (21:00)
--- NOTE | 2020-10-06 23:21 | Electrocardiogram Report ---
Test Reason : Blood Pressure : / mmHG Vent. Rate : 103 BPM Atrial Rate : 103 BPM P-R Int : 126 ms QRS Dur : 096 ms QT Int : 330 ms P-R-T Axes : 076 041 047 degrees QTc Int : 432 ms Sinus tachycardia Inferior infarct , age undetermined Abnormal ECG When compared with ECG of 29-JUL-2020 14:27, Inferior infarct is now Present Confirmed by Henrique De Guzman ([id number]) on 10/06/2020 11:21:33 PM Referred By: REFERRED SELF Confirmed By:Henrique De Guzman
--- NOTE | 2020-10-06 23:26 | Electrocardiogram Report ---
Test Reason : Blood Pressure : / mmHG Vent. Rate : 076 BPM Atrial Rate : 076 BPM P-R Int : 144 ms QRS Dur : 086 ms QT Int : 382 ms P-R-T Axes : 072 030 016 degrees QTc Int : 429 ms Normal sinus rhythm Inferior infarct (cited on or before 22-FEB-2020) Abnormal ECG When compared with ECG of 05-OCT-2020 21:39, No significant change was found Confirmed by Henrique De Guzman ([id number]) on 10/06/2020 11:26:36 PM Referred By: REFERRED SELF Confirmed By:Henrique De Guzman
--- NOTE | 2020-10-06 23:59 | Billing Data ---
Date of Service October 06, 2020 Coding Level of Care Code 04864 Initial Inpt Care Lvl 3
[2020-10-07] MEDS: ALBUT/IPRATROP 3MG/0.5MG NEB 3 ML VIAL NEB SCH ×2 (04:17→07:01)
[2020-10-07] MEDS: methylPREDNISolone 60 MG in SYRINGE 0 ML IV SCH (05:50)
[2020-10-07 07:19] LABS: Calcium 9.3 mg/dl (8.5-10.1); Creatinine Clr Calc Pharmacy 61.9 ml/min; Est GFR (African American) 90.8 ml/min; Est GFR (Non-African American) 78.4 ml/min; Potassium 3.7 mmol/L (3.5-5.1)
[2020-10-07] MEDS: METOPROLOL SUCC 50MG EXT REL TAB PO SCH (08:05)
[2020-10-07] MEDS: ATORVASTATIN 40 MG TAB PO SCH (08:05)
[2020-10-07] MEDS: CLOPIDOGREL BISULFATE 75 MG TAB PO SCH (08:05)
[2020-10-07] MEDS: ENOXAPARIN INJ 40 MG/0.4 ML SYR SQ SCH (08:42)
--- NOTE | 2020-10-07 09:38 | Medical Student Progress Note ---
Date of Service October 07, 2020 Assessment & Plan (1) Hypoxia: Mr. Burroughs is a 69-year-old male with a history of COPD, CAD with STEMI s/p stent x2, HTN, HLD, osteoarthritis, and ischemic cardiomyopathy that noted worsening shortness of breath starting POD #1 after L should replacement. He is now POD #3 and hospital day 2. Hypoxia secondary to COPD Exacerbation: -CXR without obvious concerns of pneumonia on admission; however, noting emphysematous changes. -SpO2 at 83% in the ED, today 91% on RA. Dyspnea greatly improved. -Duoneb q4h scheduled. -IV methylprednisolone 60mg q8h. Continue prednisone PO as an outpatient for total of 7 days. -Continue Symbicort, Combivent, and Spiriva at home. -Discussed smoking cessation with Dr. Mason - patient expresses no desire to quit. Elevated BUN, Cr: -Mild; pre-renal pattern. -Discuss adequate hydration of 60-80 oz/day with patient. Elevated D-Dimer -CTA chest negative for acute PE -No calf tenderness -COVID-19 negative CAD -S/P MARIA GUADALUPE x2 on 02/23/20 -Continue ASA -Continue Plavix, atorvastatin, metoprolol, and lisinopril at home. HTN -Continue Metoprolol and lisinopril at home. Dispo: Prepare for d/c. FEN: HH diet DVT: Lovenox Code: Full Admission and Anticipated Discharge Date Admission Date: October 06, 2020 Subjective Mr. Burroughs is a pleasant 69-year-old male with a history of COPD and recent left shoulder replacement on 10/04/20 who presented on 10/05/20 with shortness of breath. He was treated with IV methylprednisolone and duonebs inpatient for suspected COPD exacerbation. He is doing well today. He is breathing and conversing comfortably on room air. Physical Exam Physical Exam: Patient sitting comfortably on exam. No acute distress. Conversing easily with no shortness of breath. Constitutional: WD/WN, vitals as above comfortable; not ill appearing and not in distress Respiratory: normal respiratory effort and + prolonged expiratory phase; no respiratory distress, no labored breathing, no retractions and does not use accessory muscles Auscultation: + crackles (mild crackles in the bases bilaterally) Cardiovascular: RRR, no murmur, no edema Rate/Rhythm: regular rate and regular rhythm Heart Sounds: normal S1 and normal S2 Skin: no rashes, warm and dry Psychiatric: A+Ox3, euthymic affect Results & Data ([facility]) Vital Signs (Past 12 Hours) Vital Signs Temp Pulse Pulse Resp BP Pulse Ox 10/07/20 07:54 36.6 C 83 18 132/67 91 10/07/20 07:02 83 16 94 10/07/20 04:08 36.9 C 71 20 133/74 90 10/06/20 23:47 81 10/06/20 23:46 37.1 C 85 18 107/61 90 10/06/20 22:23 85 18 90 Labs: BUN: 21 CR: .98 Tele: Sinus rhythm 60-80s overnight.
[2020-10-07] MEDS ORDERED: AZITHROMYCIN 250 MG TAB PO ONE (09:39)
[2020-10-07] MEDS ORDERED: IPRATROPIUM BROMIDE HFA INHALER INH SCH (13:00)
[2020-10-07] MEDS ORDERED: ALBUTEROL HFA 8 GM INHALER INH SCH (13:00)
--- NOTE | 2020-10-07 13:04 | Discharge Summary ---
Date of Service October 07, 2020 Admission HPI Per Admitting Provider Patient is a 69 year old male with PMHx COPD, CAD s/p stent x2, HTN, HLD, osteoarthritis, ischemic cardiomyopathy that noted worsening shortness of breath starting earlier this morning in addition to wheezing and SOB on exertion. Patient notes that he has been compliant with his COPD medications and his CAD medications. He notes that around 9AM he was having worsening SOB with exertion and his noted that he was also having wheezing at those times. He states that at rest he felt relatively fine. He had no chest pain or pressure during any of the episodes of SOB or SOB on exertion. He states he has been eating and drinking properly. He denies any fever, chills, cough, sputum production, dysuria, chest pain, chest pressure, abdominal pain, nausea, vomiting. In the ED he was given 1 hour Duoneb treatment and 60mg IV methylprednisolone. Patient is currently on 2L Oxymask and notes he does not feel SOB and is able to hold a conversation without becoming SOB. Of note patietn is POD2 a L total shoulder with Dr. Rosario. Med Hx: CAD s/p STEMI and MARIA GUADALUPE x2 02/23/20, COPD, HTN, HLD, Osteoarthritis, Ischemic Cardiomyopathy Surg Hx: MARIA GUADALUPE x2, R rotator cuff repair, L rotator cuff repair and L total shoulder Soc Hx: Smokes 1/2 PPD, No alcohol, No illicit drug use Principal Diagnosis COPD Exacerbation Discharge Exam Constitutional WD/WN, vitals as above Eyes PERRL, conjunctivae normal, anicteric sclerae Respiratory normal respiratory effort, lungs clear to auscultation + prolonged expiratory phase Auscultation: no crackles, no rales, no rhonchi and no wheezes Cardiovascular Rate/Rhythm: regular rate and regular rhythm Heart Sounds: no gallop, no murmur and no cardiac rub Vessels: normal peripheral pulses; no JVD Extremities: no edema Musculoskeletal no cyanosis or clubbing, extremities motor strength 5/5 Skin no rashes, warm and dry Psychiatric Orientation: alert and oriented x 3 Discharge Data Allergies Allergy/AdvReac Type Severity Reaction Status Date / Time clopidogrel [From Plavix] AdvReac Severe SHORT OF Verified 10/05/20 22:33 BREATH PER PT. Consultations 10/06/20 00:52 ED Decision to Admit Stat Ordered Studies 10/05/20 23:27 CT angio chest PE protocol Urgent Hospital Course (1) Hypoxia: Patient is a 69 year old male with PMHx COPD, CAD s/p stent x2, HTN, HLD, osteoarthritis, ischemic cardiomyopathy that noted worsening shortness of breath starting earlier this morning in addition to wheezing and SOB on exertion. Hypoxia secondary to COPD Exacerbation: -Hypoxic as low as 83% in the ED, though patient did state he smoked a cigarette 30 minutes prior to coming in. -In ED given Duoneb treatment and Methylprednisolone 60mg IV to good improvement -CXR without obvious concerns of pneumonia, however, noting emphysematous changes -continue Prednisone 40mg daily for 5 additional days -Continue home Symbicort, Combivent, and Spiriva -advised smoking cessation as this will continue to deteriorate his respiratory and vascular status CAD: -S/P MARIA GUADALUPE x2 on 02/23/20 -Continue ASA -Continue Plavix (upon further discussion patient recalls he had reaction to BRILINTA and not Plavix in the past) -Continue Atorvastatin -Continue Metoprolol -Continue Lisinopril HTN: -Continue Metoprolol -Continue Lisinopril (2) COPD (chronic obstructive pulmonary disease): Total Time Total Time Spent Total Time Spent (In Minutes): <30 Discharge Plan Discharge Items Patient Disposition: Home - Self-Care Reason For Visit: COPD EXACERBATION Discharge Diagnosis: COPD exacerbation Activity: Per Instructions section Non-emergency contact: Primary Care Provider Call non-emergency contact if: you have any medication questions, your symptoms worsen and you have a fever Follow-up/Referrals: PCP,NO [Primary Care Provider] - Diet: Heart Healthy Addtl Attending Provider Instructions: You were seen and admitted for concerns regarding shortness of breath; during this admission, you required supplemental oxygen for a short period of time, and were initiated on steroids to help further reduce the inflammation that would have caused your shortness of breath. Now that you are being discharged, you should continue to take your prednisone for the next week. Pending Studies at Discharge: No Stand-Alone Forms: [facility], Smoking Cessation Medications and DC Order Prescriptions: New clopidogrel 75 mg Tablet 75 mg PO QAM 30 Days Qty: 30 RF: 0 prednisone 10 mg tablet 40 mg PO DAILY 5 Days Qty: 20 RF: 0 Continued lisinopril [Zestril] 5 mg tablet 5 mg PO QPM 30 Days Qty: 30 RF: 11 budesonide-formoterol [Symbicort] 160-4.5 mcg/actuation Hfa Aerosol Inhaler 1 puff INHALATION HS RF: 0 Spiriva Respimat 2.5 mcg/actuation Mist 2 puff INHALATION HS RF: 0 Combivent Respimat 20-100 mcg/actuation Mist 1 puff INHALATION TID RF: 0 atorvastatin 80 mg tablet 80 mg PO QAM RF: 0 metoprolol succinate [Toprol XL] 50 mg tablet extended release 24 hr 50 mg PO QAM RF: 0 aspirin 81 mg tablet,delayed release (DR/EC) 81 mg PO QPM RF: 0 tramadol 50 mg Tablet 50 mg PO BID PRN (Reason: Pain) RF: 0 Discharge Orders: Discharge Order (Routine); Ordered 10/07/20 Ordered By: James Mason Admission Data Admit Date/Time: 10/06/20 02:40 Attending Provider: Sung Mcginnis Admit Provider: Pineda Robins Primary Care Provider: PCP,NO Other Providers: Jeremiah Littlejohn ; [facility] Other Interventions: Discharge Summary Assessment (RN) Last Done: 10/07/20 13:22 Supervising Physician Co-Signing Physician Notes I personally examined the patient and verified all lee points of history and exam, discussed case, and agree with decision making with Dr Mason. Feeling better, feeling up to going home. Is at least now thinking about stopping smoking. Vitals noted, in general he is awake and alert pleasant no distress. HEENT normocephalic atraumatic mucous membranes moist. Breathing unlabored no accessory muscle use good effort, skin shows no rashes no pallor or icterus. Neuro shows no focal deficits. COPD exacerbationimprovinghome on steroids and home inhaler regimen. Encouraged to stop smokingdiscussed what a progressive deterioration in lung function would look and feel like as far as his quality of life. Stable for home. Otherwise as above. Resident Activity Tracking Resident Involvement: Resident Care Provided Care Provided: Adult Hospital Medicine
--- NOTE | 2020-10-07 17:44 | Billing Data ---
Date of Service October 07, 2020 Coding Level of Care Code D/C Day Management <30 mins
== END 2020-10-07 15:11 | disposition home or self-care (01) | DRG 192 ==
LOC: ED 21:26 → SUATTDRO 10-06 02:40 → 2N 10-06 02:40

== ENCOUNTER 2022-05-21 06:25 | Inpatient (IN) ==
--- NOTE | 2022-05-05 12:41 | PAT Medication Instructions ---
Medication Instructions Date of Service May 05, 2022 Home Medications Medication Instructions Recorded lisinopril 5 mg tablet (Zestril) 5 mg PO QPM 30 days #30 tabs 03/07/20 budesonide-formoterol HFA 160 mcg-4.5 mcg/actuation aerosol inhaler (Symbicort) 1 puff inhalation HS ipratropium 20 mcg-albuterol 100 mcg/actuation mist for inhalation (Combivent Respimat) 1 puff inhalation TID tiotropium bromide 2.5 mcg/actuation mist for inhalation (Spiriva Respimat) 2 puff inhalation HS lisinopril 5 mg tablet (Zestril) 5 mg PO QPM atorvastatin 80 mg tablet 80 mg PO QAM metoprolol succinate 50 mg tablet,extended release 24 hr (Toprol XL) 50 mg PO Q AM tramadol 50 mg tablet 50 mg PO BID PRN aspirin 81 mg tablet,delayed release 81 mg PO QPM clopidogrel 75 mg tablet 75 mg PO QAM ASK your prescriber and surgeon clopidogrel 75 mg tablet 75 mg PO QAM Take morning of surgery With a small sip of water, OTHERWISE NOTHING TO EAT OR DRINK AFTER MIDNIGHT: ipratropium 20 mcg-albuterol 100 mcg/actuation mist for inhalation (Combivent Respimat) 1 puff inhalation TID atorvastatin 80 mg tablet 80 mg PO QAM metoprolol succinate 50 mg tablet,extended release 24 hr (Toprol XL) 50 mg PO QAM tramadol 50 mg tablet 50 mg PO BID PRN(if needed) Take evening before surgery budesonide-formoterol HFA 160 mcg-4.5 mcg/actuation aerosol inhaler (Symbicort) 1 puff inhalation HS ipratropium 20 mcg-albuterol 100 mcg/actuation mist for inhalation (Combivent Respimat) 1 puff inhalation TID tiotropium bromide 2.5 mcg/actuation mist for inhalation (Spiriva Respimat) 2 puff inhalation HS lisinopril 5 mg tablet (Zestril) 5 mg PO QPM aspirin 81 mg tablet,delayed release 81 mg PO QPM (unless directed otherwise by surgeon) tramadol 50 mg tablet 50 mg PO BID PRN(if needed) Other Notes If you have any questions please call us at [phone] or [phone] or [phone] or [phone]
--- NOTE | 2022-05-07 10:58 | Anesthesiology Consultation ---
Date of Service May 07, 2022 Assessment & Plan (1) Encounter for pre-operative examination: - cardiology 04/10/22: "...CAD s/p PCI, HTN, HLD, COPD...pre-operative cardiac exam prior to shoulder surgery TBD...dyspnea has been unchanged for over 5 years. Atypical chest pain < 1 month...unchanged for over 5 years. Typically will not become SOB with 1 flight of stairs. Dyspnea is worse some days depending on weather. Denies any angina type chest pain since PCI in 2019...feeling well with no significant complaints. Mild dyspnea and atypical chest pain that is unchanged for 5+ years...no further testing prior to shoulder surgery-low risk..." - Outpatient joint assessment: Patient is not currently scheduled for outpatient joint. Case discussed with Dr. Prajapati who advised if re-evaluated pending system levels during current pandemic/surgeon requests outpatient pathway, julio ent is NOT acceptable candidate for outpatient joint program from anesthesia standpoint. Chart Review Chart Review: Acceptable Risk for Surgery and Patient seen in Pre Admission Testing Teaching & Discussion Pre-Anesthesia Teaching/Discussion Notes: Instructed NPO after midnight before surgery, except medications with 15 cc of water. Medication instructions provided according to the PAT guidelines. History Surgery Operation Date: 05/21/22 08:15 Proposed Procedures p Right Total Shoulder Arthroplasty Reverse - Eder Rosario M.D. Height/Weight Height: 5 ft 5 in Weight: 63.503 kg Allergies Allergy/AdvReac Type Severity Reaction Status Date / Time clopidogrel [From Plavix] AdvReac Severe SHORT OF Verified 05/05/22 11:16 BREATH PER PT. Medications Home Medications Medication Instructions Recorded Confirmed Last Taken budesonide-formoterol HFA 160 1 puff inhalation HS 10/10/18 05/05/22 10/04/20 mcg-4.5 mcg/actuation aerosol inhaler (Symbicort) ipratropium 20 mcg-albuterol 100 1 puff inhalation TID 10/10/18 05/05/22 10/05/20 mcg/actuation mist for inhalation (Combivent Respimat) tiotropium bromide 2.5 2 puff inhalation HS 10/10/18 05/05/22 10/04/20 mcg/actuation mist for inhalation (Spiriva Respimat) lisinopril 5 mg tablet (Zestril) 5 mg PO QPM 30 days #30 tabs 03/07/20 05/05/22 10/04/20 atorvastatin 80 mg tablet 80 mg PO QAM 07/18/20 05/05/22 10/05/20 metoprolol succinate 50 mg 50 mg PO QAM 07/18/20 05/05/22 10/05/20 tablet,extended release 24 hr (Toprol XL) tramadol 50 mg tablet 50 mg PO BID PRN Pain 09/02/20 05/05/22 10/02/20 21:00 aspirin 81 mg tablet,delayed 81 mg PO QPM 10/03/20 05/05/22 10/04/20 release clopidogrel 75 mg tablet 75 mg PO QAM 05/05/22 05/05/22 Unknown Past Medical History Medical History (Updated 05/07/22 @ 11:07 by Maritza Botello PA-C) CAD (coronary artery disease) s/p STEMI with MARIA GUADALUPE x 2-Cx and RCA 02/23/20 COPD (chronic obstructive pulmonary disease) controlled, stable per pt History of [place] (myocardial infarction) 02/2020 (treated at [facility]) s/p MARIA GUADALUPE x2, Cx and RCA. Completed [facility]-home cardiac [facility]hab. [facility] . HTN (hypertension) controlled, stable per pt Hyperlipemia Ischemic cardiomyopathy EF 40-45% on echo 02/22/20. Patient denies h/o stroke, seizures, DM, blood clots or blood transfusions. Exercise / Class Metabolic Activity II 4-5 Yardwork/Stairs/Walk up hill (denies CP or SOB with 1 FOS) Past Family History Family History Other No family history of adverse response to anesthesia No pertinent family history Past Surgical History Surgical History (Updated 05/07/22 @ 10:52 by Maritza Botello PA-C) History of cardiac catheterization s/p STEMI with MARIA GUADALUPE x 2 02/23/20 Cx and RCA; LM -medium caliber, angiographically normal LAD -medium caliber vessel, proximal luminal irregularities, 20 to 30% mid stenosis at takeoff of second diagonal. Distal luminal regularities 60% apex. Medium caliber second diagonal without significant disease. Circumflex -medium caliber, 70% mid segment stenosis. Medium caliber OM 2 without significant disease RCA -dominant, calcified, 30 to 40% proximal, diffuse 40%/ectatic disease in the midsegment prior to 100% latemid 100% acute on chronic occlusion. Distal vessel partially fills via [id number] collaterals. History of colonoscopy History of repair of right rotator cuff History of surgical amputation of finger History of tooth extraction S/P drug eluting coronary stent placement S/P PTCA (percutaneous transluminal coronary angioplasty) Status post reverse arthroplasty of left shoulder 10/03/20 LMA#5 + PNB. Past Anesthesia History No Hx of Anesthesia Complications and No Family Hx of Anesthesia Complications Social History Smoking Status: Current every day smoker tobacco type: cigarettes Smoking cigarettes per day: 10 per day- advised Do You Dip or Chew Tobacco: No Hx Alcohol Use: No Hx Substance Use: No substance use type: does not use Review of Systems Patient denies chest pain, shortness of breath, dyspnea on exertion, snoring, witnessed apneas, reflux, fever, chills, cough, wheezing, or palpitations. Physical Exam Vital Signs Vitals BP 108/66 P 64 TEMP 97.8 SP02 94% on RA RESP 17 Physical Full cervical extension range of motion without pain TMD 3.5 finger breadths Mallampati Score 2 Dentition: edentulous Lungs: normal respiratory effort. Clear throughout to auscultation, no a dventitious breath sounds Cardiac: regular rate and rhythm, no murmurs noted Carotid arteries: negative bruit bilat Lab Results Anesthesia Preop Results Results Anesthesia Widget: WBC 6.58 K/ul (4.8-10.8) 05/07/22 Hgb 14.3 g/dl (14.0-18.0) 05/07/22 Hct 43.8 % (40.1-51.0) 05/07/22 Plt 187 K/uL (130-400) 05/07/22 Na 141 mmol/L (136-145) 05/07/22 K 4.6 mmol/L (3.5-5.1) 05/07/22 Cl 107 mmol/L (98-107) 05/07/22 CO2 31 mmol/L (21-32) 05/07/22 BUN 15 mg/dl (6-23) 05/07/22 Creat 0.92 mg/dl (0.6-1.4) 05/07/22 Glucose Level 94 mg/dl (70-99(Fasting)) 05/07/22 PT 10.9 Seconds (9.0-12.0) 05/07/22 PTT 26.8 Seconds (21.0-31.0) 05/07/22 INR 1.0 (0.9-1.1) 05/07/22 HA1c 6.2 % (4.5-5.6) H 05/07/22 Urine Color Yellow 05/07/22 Urine Appearance Clear (Clear) 05/07/22 Urine pH 5.0 (4.5-7.5) 05/07/22 Urine Specific [place] 1.030 (1.000-1.030) 05/07/22 Urine Protein Negative (Negative) 05/07/22 Urine Glucose (UA) Negative (Negative) 05/07/22 Urine Ketones Negative (Negative) 05/07/22 Urine Blood 1+ (Negative) H 05/07/22 Urine Nitrite Negative (Negative) 05/07/22 Urine Bilirubin Negative (Negative) 05/07/22 Urine Urobilinogen Negative (Negative) 05/07/22 Urine Leukocyte Esterase Negative (Negative) 05/07/22 Urine WBC (Auto) 1-5 /hpf (0-5) 05/07/22 Urine RBC (Auto) 5-10 /hpf (0-4) H 05/07/22 Urine Hyaline Casts (Auto) 1-5 /lpf (0-5) 05/07/22 Urine Epithelial Cells (Auto) 10-20 /lpf (0-5) H 05/07/22 Urine Bacteria (Auto) Negative (Negative) 05/07/22 Blood Type O Positive 05/07/22 Antibody Screen NEGATIVE 05/07/22 Testing Electrocardiogram Date: 04/10/22 NSR, rate 67 bpm Chest X-Ray Date: 05/07/22 No pneumothorax. No pleural effusions. The lungs are hyperexpanded with apical predominant emphysematous changes. No focal lung consolidations to suggest a pneumonia. No evidence for pulmonary edema. The heart is normal in size. Degenerative changes again noted within the right shoulder. Prior left total shoulder arthroplasty. IMPRESSION: 1. No acute process within the chest. 2. Emphysema again noted. Echocardiogram Date: 04/10/22 EF 50-55% No significant valvular pathology Cardiac Catheterization Date: 02/23/20 LM -medium caliber, angiographically normal LAD -medium caliber vessel, proximal luminal irregularities, 20 to 30% mid stenosis at takeoff of second diagonal. Distal luminal regularities 60% apex. Medium caliber second diagonal without significant disease. Circumflex -medium caliber, 70% mid segment stenosis. Medium caliber OM 2 without significant disease RCA -dominant, calcified, 30 to 40% proximal, diffuse 40%/ectatic disease in the midsegment prior to 100% latemid 100% acute on chronic occlusion. Distal vessel partially fills via [id number] collaterals. MARIA GUADALUPE to RCA 02/22/20, MARIA GUADALUPE to Cx 02/23/20 COVID-19 Risk Screen Screening Information COVID-19 Screen Date: 05/07/22 Exposure 21 Days Family/Household +COVID Last 21 Days: No Exposure 10 Days Any COVID Exposure Last 10 Days: No Symptoms Last 10 Days Experienced COVID Sx Last 10 Days: No + COVID 0-90 Days COVID + in Last 0-90 Days: No
--- NOTE | 2022-05-20 09:25 | History & Physical Report ---
Date of Service May 20, 2022 Assessment & Plan (1) Right rotator cuff tear arthropathy: Plan: He has severe rotator cuff tear arthropathy in his right shoulder. Interestingly, he has basically complete fatty atrophy of the infraspinatus and teres minor tendons. I discussed with him the consequence of this. I advised him that with a reverse total shoulder arthroplasty, should be able to improve his pain and crepitus, and restore the ability to abduct his shoulder. However, he will very likely have continued weakness and difficulty with external rotation of his shoulder due to that complete atrophy of the teres minor muscle, and he voiced understanding of this. He again voiced that he does not want to proceed with any further injections, as they have become ineffective for him. He really wants to proceed with surgery to improve his pain and function. I think this is very reasonable. We will plan for right reverse total shoulder arthroplasty. Risks, benefits, and alternatives of surgery were explained in detail. The surgical procedure, as well as postoperative recovery and rehabilitation, was also explained in detail. Risks include bleeding; infection; damage to surrounding structures such as nerves, blood vessels, and tendons that run in the area; persistent pain or stiffness; hardware failure; dislocation; brachial plexus palsy; blood clots; or need for further surgery. The patient understands all of this and wishes to proceed with surgery. Informed consent was obtained. History of Present Illness Chief Complaint: Right shoulder pain Primary Care Provider: NO PCP Mr. Burroughs returns for his right shoulder. He again is a 71-year-old [id number] male who has had right shoulder pain for many years, at least back to 2009. He had 2 previous surgeries on his right shoulder around that time. Previous operative reports were reviewed. He underwent a right shoulder arthroscopy with repair of massive rotator cuff tear, subacromial decompression, distal clavicle excision, and debridement of labral tear by Dr. Berry in September 200910. Grade II chondromalacia was noted in the glenohumeral joint at the time. He then had right shoulder arthroscopy in June 2010, again by Dr. Berry. Intraoperatively, a recurrent massive rotator cuff tear was seen, with significant retraction and scarring. This was unable to be repaired at the time. 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 Since those 2 surgeries, he has had progressively worsening pain and weakness in his right shoulder. He was getting steroid injections in that shoulder over those years. He estimates that he received about 6 to 7 injections in that right shoulder with decreasing efficacy over time. They eventually became completely ineffective, and he stopped getting them. His last injection was about 3 to 4 years ago. I previously replaced his left shoulder with excellent results, and is extremely pleased with that side with marked improvement in his pain and function. He is interested in similar treatment on his right side. Allergies Allergy/AdvReac Type Severity Reaction Status Date / Time clopidogrel [From Plavix] AdvReac Severe SHORT OF Verified 05/05/22 11:16 BREATH PER PT. Home Medications Medication Instructions Recorded Confirmed Type budesonide-formoterol HFA 160 1 puff inhalation HS 10/10/18 05/05/22 History mcg-4.5 mcg/actuation aerosol inhaler (Symbicort) ipratropium 20 mcg-albuterol 100 1 puff inhalation TID 10/10/18 05/05/22 History mcg/actuation mist for inhalation (Combivent Respimat) tiotropium bromide 2.5 2 puff inhalation HS 10/10/18 05/05/22 History mcg/actuation mist for inhalation (Spiriva Respimat) lisinopril 5 mg tablet (Zestril) 5 mg PO QPM 30 days #30 tabs 03/07/20 05/05/22 Rx atorvastatin 80 mg tablet 80 mg PO QAM 07/18/20 05/05/22 History metoprolol succinate 50 mg 50 mg PO QAM 07/18/20 05/05/22 History tablet,extended release 24 hr (Toprol XL) tramadol 50 mg tablet 50 mg PO BID PRN Pain 09/02/20 05/05/22 History aspirin 81 mg tablet,delayed 81 mg PO QPM 10/03/20 05/05/22 History release clopidogrel 75 mg tablet 75 mg PO QAM 05/05/22 05/05/22 History Past Med/Surg History Medical History (Updated 05/20/22 @ 09:24 by Eder Rosario M.D.) CAD (coronary artery disease) s/p STEMI with MARIA GUADALUPE x 2-Cx and RCA 02/23/20 COPD (chronic obstructive pulmonary disease) controlled, stable per pt History of [place] (myocardial infarction) 02/2020 (treated at [facility]) s/p MARIA GUADALUPE x2, Cx and RCA. Completed at-home cardiac rehab. [facility] . HTN (hypertension) controlled, stable per pt Hyperlipemia Ischemic cardiomyopathy EF 40-45% on echo 02/22/20. Surgical History (Updated 05/07/22 @ 10:52 by Maritza Botello PA-C) History of cardiac catheterization s/p STEMI with MARIA GUADALUPE x 2 02/23/20 Cx and RCA; LM -medium caliber, angiographically normal LAD -medium caliber vessel, proximal luminal irregularities, 20 to 30% mid stenosis at takeoff of second diagonal. Distal luminal regularities 60% apex. Medium caliber second diagonal without significant disease. Circumflex -medium caliber, 70% mid segment stenosis. Medium caliber OM 2 without significant disease RCA -dominant, calcified, 30 to 40% proximal, diffuse 40%/ectatic disease in the midsegment prior to 100% latemid 100% acute on chronic occlusion. Distal vessel partially fills via [id number] collaterals. History of colonoscopy History of repair of right rotator cuff History of surgical amputation of finger History of tooth extraction S/P drug eluting coronary stent placement S/P PTCA (percutaneous transluminal coronary angioplasty) Status post reverse arthroplasty of left shoulder 10/03/20 LMA#5 + PNB. Family History Other No family history of adverse response to anesthesia No pertinent family history Social History Smoking Status: Current every day smoker Tobacco Type: Cigarettes Cigarettes Per Day: 10 per day- advised; Second Hand Exposure: Yes; Hx Alcohol Use: No Hx Substance Use: No Preferred Language: Telugu Communication Ability: Effective Visual Impairment: No Limitations Hearing Ability: Normal [employer] Required: No Beliefs That Will Affect Care: None marital status: marital status details: Current Living Situation: Spouse current occupational status: retired Feels Safe at Home: Yes Assistive Devices: None Physical Exam Physical Exam: Examination of the right shoulder shows severe limitation in shoulder range of motion due to pain, with palpable crepitus during motion. He can only achieve about 80 degrees of active abduction. He is about 10 degrees short of neutral on attempted active external rotation. Internal rotation is to the PSIS level. Rotator cuff strength is globally weak. Results & Data ([facility]) Diagnostic Findings Previous x-rays of the right shoulder from March 2022 were reviewed. They show obvious severe rotator cuff tear arthropathy with severe glenohumeral joint arthritis and large osteophyte formation along the inferior humeral head. There is complete obliteration of the glenohumeral joint space with posterior glenoid wear. There is obvious proximal migration of the humeral head with articulation on the undersurface of the acromion. New MRI of the right shoulder from March 2022 was reviewed. It confirms severe rotator cuff tear arthropathy. There are 4 previous rotator cuff repair anchors within the humeral head. There is a massive, retracted, full-thickness rotator cuff tear involving the entirety of the rotator cuff musculature. There is severe fatty atrophy of the subscapularis, supraspinatus, infraspinatus, and even the teres minor muscles. Severe glenohumeral joint arthritis with significant posterior glenoid wear.
[~2022-05-21 06:25] MED LIST changes: -BUPIVACAINE 0.5 % 5 MG/1 ML PF 10ML VIAL ONE; -GABAPENTIN 300 MG CAP PO SCH; +GABAPENTIN 600 MG DOSE PO SCH; +TRANEXAMIC ACID 1,000 MG **IV Pre-op IV SCH; -ceFAZolin 1000MG 1,000 MG/7.5 ML SYR IV SCH; +ceFAZolin 2000MG 2,000 MG/15 ML SYR IV SCH
[2022-05-21] MEDS ORDERED: BUPIVACAINE 0.5 % 5 MG/1 ML PF 10ML VIAL ONE (06:26)
[2022-05-21] MEDS ORDERED: fentaNYL citrate 100 MCG/2 ML VIAL ONE ×2 (07:36→08:56)
[2022-05-21] MEDS ORDERED: MIDAZOLAM HCL 1 MG/ML 2ML VIAL ONE (07:36)
--- NOTE | 2022-05-21 08:11 | History & Physical Bridge Note ---
Date of Service May 21, 2022 History & Physical Bridge Note I have examined the patient, reviewed the History & Physical and in the interval since the performance of the History & Physical I have noted the following changes of clinical significance: no changes noted
[2022-05-21] MEDS ORDERED: ONDANSETRON INJ 2 MG/ML 2 ML VIAL ONE (09:25)
[2022-05-21] MEDS ORDERED: ePHEDrine sulfate 50 MG/ML AMP ONE (09:25)
[2022-05-21] MEDS ORDERED: ePHEDrine sulfate 50 MG/ML SYR ONE (09:25)
[2022-05-21] MEDS ORDERED: PHENYLEPHRINE 100MCG/ML 5ML SYR ONE (09:25)
[2022-05-21] MEDS ORDERED: SUCCINYLCHOLINE 100MG/5ML SYR IV ONE (09:25)
[2022-05-21] MEDS ORDERED: PROPOFOL IV EMULSION 10 MG/ML 20 ML VIAL IV ONE (09:25)
[2022-05-21] MEDS ORDERED: PHENYLEPHRINE HCL 10 MG/ML VIAL ONE (09:45)
--- NOTE | 2022-05-21 10:25 | Operative Report ---
Post Operative Report Pre & Post Diagnosis Operation Date: 05/21/22 08:15 Pre-Op Diagnosis: Right Shoulder Rotator Cuff Tear Arthropathy Post-Op Diagnosis: Right Shoulder Rotator Cuff Tear Arthropathy I identified the patient and participated in the time-out.: Yes Procedure Operation Date: 05/21/22 08:15 Actual Procedures Right reverse total shoulder arthroplasty (87713) Open biceps tenodesis (75165) - Eder Rosario M.D. Surgeon Eder Rosario MD Certified Wellness Program Coordinator Klaus Khan PA-C Estimated Blood Loss 100 Findings Consistent with Post-Op Diagnosis Specimens None Drains None Anesthesia Type General Regional Complications none Disposition Disposition: Recovery Room Indications Mr. Burroughs is a 71-year-old male with severe right shoulder pain and stiffness. History, clinical exam, and imaging were consistent with the above diagnosis. Risks, benefits, and alternatives of surgery were explained in detail. The patient understood all this and wished to proceed. Description of Procedure Components Implanted: Tornier Reverse Total Shoulder implants Perform glenoid baseplate: 29mm, 15 degree full wedge with 6.5mm central screw and 5.0mm peripheral screws Glenosphere: 39mm standard Ascend Flex humeral stem: 3B Standard length (74mm) Humeral tray: 1.5 mm offset, +0mm thickness Polyethylene insert: 39mm, +6mm thickness Patient was identified in the preoperative holding area. Operative extremity was marked. Regional blockade was given by the Anesthesia Staff. Patient was then brought back to the operating room, and general anesthesia was induced without complication. Appropriate weight-based dose of Ancef was infused intravenously for antibiotic prophylaxis. The patient was then placed in the beachchair position. Right arm was then prepped and draped in a standard sterile fashion using Chlorhexidine prep. A standard deltopectoral incision was made through the skin and subcutaneous tissue. The cephalic vein was identified and retracted medially. Small branches to the deltoid were coagulated as necessary. The clavipectoral fascia was then incised and the subdeltoid space was opened. The rotator cuff was found to be deficient, and I therefore decided to perform a reverse total shoulder arthroplasty as planned preoperatively. The biceps tendon was identified within the bicipital groove and tenodesed at the superior border of the pectoralis tendon with #2 FiberWire suture. The biceps tendon was then divided proximal to the tenodesis site and the rotator interval was opened. The proximal portion of the biceps tendon was excised. The remaining subscapularis tendon was elevated subperiosteally off of the lesser tuberosity. The glenohumeral joint was then dislocated, and large osteophytes were debrided with a ronguer. The humeral head and glenoid were both found to be severely eroded and deformed from severe advanced rotator cuff tear arthropathy. The intramedullary canal of the humerus was then opened with a canal finder. The humeral head cut was then made in the appropriate inclination and version using the cutting guide. The humeral canal was then sequentially broached to the appropriate size. A protective cap was then placed on top of the humeral trial. I then turned my attention to the glenoid. The proximal stump of the biceps tendon was excised, along with the labrum circumferentially around the glenoid. The Blueprint drill guide was then positioned on the glenoid, and the guidepin was then inserted. The 15 degree angled reamer was then inserted over the guid epin and an reamed to an appropriate depth. The central screw hole was drilled, and appropriate length 6.5mm central screw was selected. The baseplate was then implanted into place according to our preoperative Blueprint plan by tightening down the central screw. A peripheral 5mm nonlocking screw was placed postero- superiorly first for additional compression of the baseplate, and then additiona l locking 5 mm peripheral screws were placed to complete fixation of the baseplate. Glenosphere was then impacted and secured. A trial humeral tray and insert were placed on the trial humeral stem, and a trial reduction was carried out. Once I achieved acceptable joint stability and range of motion with the trial implants, the final humeral implants were assembled on the back table and then impacted into position. I then took the shoulder through full range of motion to ensure good stability and acceptable motion. Wound was then copiously irrigated with sterile saline. Deep fascia was closed with 0 V-lock suture. Subcutaneous tissue was closed with 2-0 V-lock, and skin was closed with 3-0 V-lock. Skin was then sealed with Dermabond. Sterile dressings were then applied with a waterproof silver-impregnated dressing, and the arm was placed into a sling. The patient was awakened from anesthesia and taken to the Post Anesthesia Care Unit in stable condition. There were no immediate complications from the procedure. I was present and scrubbed for the entire procedure, with the exception of final skin closure and dressing application. Due to the complex nature of the procedure, the entire surgery was performed with the operational assistance of Klaus Khan PA-C. The syrup mixer assistant, under direct supervision, was involved in the performance of all aspects of the surgical procedure including hemostasis, tissue incision and retraction, instrument management, patient positioning, and wound closure. I attest to the content of the Intraoperative Record and any orders documented therein. Any exceptions are noted below.
[2022-05-21] MEDS ORDERED: PROMETHAZINE HCL 12.5 MG in SODIUM CHLORIDE 0.9% 50 ML IV PRN (10:47)
[2022-05-21] MEDS ORDERED: fentaNYL citrate 100 MCG/2 ML VIAL IV PRN (10:47)
[2022-05-21] MEDS ORDERED: LABETALOL HCL IV 5 MG/ML 20ML IV PRN (10:47)
[2022-05-21] MEDS ORDERED: NALOXONE HCL 0.4 MG/1 ML VIAL/CARP IV PRN ×2 (10:47→12:35)
[2022-05-21] MEDS ORDERED: ePHEDrine sulfate 50 MG/ML AMP IV PRN (10:47)
[2022-05-21] MEDS ORDERED: ONDANSETRON INJ 2 MG/ML 2 ML VIAL IV PRN ×2 (10:47→12:35)
[2022-05-21] MEDS ORDERED: HYDROmorphone INJ 1 MG/ML SYRINGE IV PRN (10:47)
[2022-05-21] MEDS ORDERED: ATROPINE SULFATE 0.1 MG/ML 10ML SYR IV PRN (10:47)
[2022-05-21] MEDS ORDERED: FLUMAZENIL 0.1 MG/1 ML 10 ML VIAL IV PRN (10:47)
--- NOTE | 2022-05-21 12:00 | Anesthesiology Progress Note ---
Date of Service May 21, 2022 Anesthesia Post Procedure Vital Signs Vital Signs: Temp Pulse Resp BP Pulse Ox O2 Del Method O2 Flow Rate 05/21/22 11:45 36.5 C 84 22 111/65 92 Nasal Cannula 2 05/21/22 11:35 36.5 C 87 23 107/60 92 Nasal Cannula 2 05/21/22 11:25 83 21 124/69 95 Oxymask 3 05/21/22 11:15 86 21 127/69 95 Oxymask 3 05/21/22 11:05 85 18 122/64 94 Oxymask 3 05/21/22 10:55 81 20 128/63 96 Oxymask 4 05/21/22 10:46 36.3 C L 80 18 127/63 98 Oxymask 5 05/21/22 06:57 36.6 C 80 20 130/74 95 Room Air 05/21/22 06:57 Room Air Transfer of Care Handoff Completed per policy Notes Mental Status: alert / awake / arousable Patient Amnestic to Procedure: Yes Nausea / Vomiting: adequately controlled Pain: adequately controlled Airway Patency, RR, SpO2: stable & adequate BP & HR: stable & adequate Hydration State: stable & adequate Anesthetic Complications: no major complications apparent
--- NOTE | 2022-05-21 12:23 | XRay Report ---
XR shoulder RT min 2V routine CLINICAL HISTORY: Post shoulder surgery COMPARISON: Right shoulder radiographs August 15, 2009. FINDINGS: Right lower lung linear opacity favors atelectasis. Alignment of the right shoulder arthro plasty is anatomic. No periprosthetic fracture. No unexpected radiopaque foreign bodies. IMPRESSION: Expected findings following right shoulder arthroplasty. ACT 112: Negative or not required by law. Electronically signed by: Silvio Duenas M.D. 05/21/2022 12:21 PM
[2022-05-21] MEDS ORDERED: MAGNESIUM HYDROXIDE SUSP 30 ML UDC PO PRN (12:35)
[2022-05-21] MEDS ORDERED: bisacodyL 10 MG SUPP PR PRN (12:35)
[2022-05-21] MEDS ORDERED: oxyCODONE HCL IR 5 MG TAB (IMMEDIATE RELEASE) PO PRN (12:35)
[2022-05-21] MEDS ORDERED: METOCLOPRAMIDE HCL INJ 5 MG/ML 2 ML VIAL IV PRN (12:35)
[2022-05-21] MEDS: IBUPROFEN 600 MG TAB PO SCH ×2 (14:49→18:44)
[2022-05-21] MEDS: SODIUM CHLORIDE 0.9% 1000ML 1,000 ML IV SCH (14:52)
[2022-05-21] MEDS: ACETAMINOPHEN 500 MG TAB PO SCH ×2 (14:52→18:05)
[2022-05-21] MEDS: ceFAZolin 2000MG 2,000 MG/15 ML SYR IV SCH (16:45)
[2022-05-21] MEDS ORDERED: SENNA 8.6 MG TAB PO SCH (21:00)
[2022-05-21] MEDS ORDERED: lisinopril 5 MG TAB PO SCH (21:00)
[2022-05-21] MEDS: DOCUSATE SODIUM 100 MG CAP PO SCH (21:48)
[2022-05-22] MEDS: ACETAMINOPHEN 500 MG TAB PO SCH ×2 (00:28→05:40)
[2022-05-22] MEDS: IBUPROFEN 600 MG TAB PO SCH ×2 (00:28→06:32)
[2022-05-22] MEDS: ceFAZolin 2000MG 2,000 MG/15 ML SYR IV SCH (00:29)
[2022-05-22] MEDS: SODIUM CHLORIDE 0.9% 1000ML 1,000 ML IV SCH (00:30)
[2022-05-22 06:45] LABS: Basophils # (auto) 0.01 K/uL (0-0.2); Basophils % (auto) 0.1 %; Hematocrit (blood only) 34.4 % (40.1-51.0); Hemoglobin 11.6 g/dl (14.0-18.0); Immature Granulocytes # (auto) 0.05 K/uL (0.00-0.02); Immature Granulocytes % (auto) 0.4 %; Lymphocytes # (auto) 0.72 K/uL (1.2-3.4); Lymphocytes % (auto) 6.2 %; Mean Corpuscular Hgb Conc 33.7 g/dL (32.0-36.0); Mean Corpuscular Volume 94.8 fL (80.0-100.0); Mean Platelet Volume 11.3 fL (9.4-12.4); Monocytes # (auto) 0.54 K/uL (0.24-0.82); Monocytes % (auto) 4.6 %; Neutrophils # (auto) 10.38 K/uL (1.4-6.5); Neutrophils % (auto) 88.7 %; Platelet Count 185 K/uL (130-400); RDW Coefficient of Variation 13.2 % (11.5-14.5); RDW Standard Deviation 46.3 fL (36.4-46.3); Red Blood Count 3.63 M/uL (4.63-6.08)
[2022-05-22 07:04] LABS: BUN Creatinine Ratio 22.9 (10-20); Calcium 8.4 mg/dl (8.5-10.1); Creatinine Clr Calc Pharmacy 56.1 ml/min; Est GFR (African American) 82.4 ml/min; Est GFR (Non-African American) 71.1 ml/min; Potassium 3.8 mmol/L (3.5-5.1)
--- NOTE | 2022-05-22 07:16 | Orthopedic Progress Note ---
Date of Service May 22, 2022 Assessment & Plan (1) Right rotator cuff tear arthropathy: Plan: Postop day 1 status post right reverse total shoulder arthroplasty PT/OT protocols. Nonweightbearing right upper extremity. DVT prophylaxis-Plavix, SCDs Pain management as written. DC planning-patient is planning for outpatient PT upon discharge. All of his medications have been sent to his pharmacy by Dr. Rosario. Plan for discharge to home today. Admission and Anticipated Discharge Date Admission Date: May 21, 2022 Subjective Postop day 1 Patient sleeping upon arrival. Easily awoken. No complaints this morning. Pain controlled. No questions this morning. He is hoping to go home today. Physical Exam Physical Exam: Silverlon dressing is clean, dry, and intact. Sling is in place. He has good range of motion of all of his fingers and wrist but states he has some residual numbness and tingling in all of his fingers. Capillary refill is less than 2 seconds. Results & Data ([facility]) Vital Signs (Past 12 Hours) Vital Signs Temp Pulse Resp BP Pulse Ox O2 Del Method 05/22/22 06:48 94 Room Air 05/21/22 21:40 Room Air 05/22/22 03:06 36.5 C 77 16 103/51 L 91 Room Air 05/22/22 00:25 109/62 05/22/22 00:22 36.5 C 77 16 107/55 L 92 Room Air 05/21/22 22:21 37 C 84 18 105/55 L 90 Room Air Laboratory Results Laboratory Results WBC 11.70 K/ul (4.8-10.8) H 05/22/22 05:45 RBC 3.63 M/uL (4.63-6.08) L 05/22/22 05:45 Hgb 11.6 g/dl (14.0-18.0) L 05/22/22 05:45 Hct 34.4 % (40.1-51.0) L 05/22/22 05:45 MCV 94.8 fL (80.0-100.0) 05/22/22 05:45 MCH 32.0 pg (25.0-34.0) 05/22/22 05:45 MCHC 33.7 g/dL (32.0-36.0) 05/22/22 05:45 RDW Std Deviation 46.3 fL (36.4-46.3) 05/22/22 05:45 RDW Coeff of Best 13.2 % (11.5-14.5) 05/22/22 05:45 Plt Count 185 K/uL (130-400) 05/22/22 05:45 MPV 11.3 fL (9.4-12.4) 05/22/22 05:45 Immature Gran % (Auto) 0.4 % 05/22/22 05:45 Neut % (Auto) 88.7 % 05/22/22 05:45 Lymph % (Auto) 6.2 % 05/22/22 05:45 Ventura % (Auto) 4.6 % 05/22/22 05:45 Eos % (Auto) 0.0 % 05/22/22 05:45 Baso % (Auto) 0.1 % 05/22/22 05:45 Neut # (Auto) 10.38 K/uL (1.4-6.5) H 05/22/22 05:45 Lymph # (Auto) 0.72 K/uL (1.2-3.4) L 05/22/22 05:45 Ventura # (Auto) 0.54 K/uL (0.24-0.82) 05/22/22 05:45 Eos # (Auto) 0.00 K/uL (0-0.50) 05/22/22 05:45 Baso # (Auto) 0.01 K/uL (0-0.2) 05/22/22 05:45 Immature Gran # (Auto) 0.05 K/uL (0.00-0.02) H 05/22/22 05:45 Sodium 138 mmol/L (136-145) 05/22/22 05:45 Potassium 3.8 mmol/L (3.5-5.1) 05/22/22 05:45 Chloride 106 mmol/L (98-107) 05/22/22 05:45 Carbon Dioxide 24 mmol/L (21-32) 05/22/22 05:45 Anion Gap 8 (3-11) 05/22/22 05:45 BUN 24 mg/dl (6-23) H 05/22/22 05:45 Creatinine 1.05 mg/dl (0.6-1.4) 05/22/22 05:45 Est Cr Clr Drug Dosing 56.1 ml/min 05/22/22 05:45 Est GFR ( Amer) 82.4 ml/min 05/22/22 05:45 Est GFR (Non-Af Amer) 71.1 ml/min 05/22/22 05:45 BUN/Creatinine Ratio 22.9 (10-20) H 05/22/22 05:45 Glucose 125 mg/dl (70-99(Fasting)) H 05/22/22 05:45 Calcium 8.4 mg/dl (8.5-10.1) L 05/22/22 05:45 SARS-CoV-2, RNA, NAAT NEGATIVE (NEGATIVE) 05/21/22 Unknown Impressions Shoulder X-Ray 05/21/22 10:49 XR shoulder RT min 2V routine CLINICAL HISTORY: Post shoulder surgery COMPARISON: Right shoulder radiographs August 15, 2009. FINDINGS: Right lower lung linear opacity favors atelectasis. Alignment of the right shoulder arthroplasty is anatomic. No periprosthetic fracture. No unexpected radiopaque foreign bodies. IMPRESSION: Expected findings following right shoulder arthroplasty. ACT 112: Negative or not required by law. Electronically signed by: Silvio Duenas M.D. 05/21/2022 12:21 PM
[2022-05-22] MEDS: DOCUSATE SODIUM 100 MG CAP PO SCH (07:53)
--- NOTE | 2022-05-22 08:58 | Discharge Summary ---
Date of Service May 22, 2022 Admission HPI Per Admitting Provider Mr. Burroughs returns for his right shoulder. He again is a 71-year-old [id number] male who has had right shoulder pain for many years, at least back to 2009. He had 2 previous surgeries on his right shoulder around that time. Previous operative reports were reviewed. He underwent a right shoulder arthroscopy with repair of massive rotator cuff tear, subacromial decompression, distal clavicle excision, and debridement of labral tear by Dr. Berry in September 200910. Grade II chondromalacia was noted in the glenohumeral joint at the time. He then had right shoulder arthroscopy in June 2010, again by Dr. Berry. Intraoperatively, a recurrent massive rotator cuff tear was seen, with significant retraction and scarring. This was unable to be repaired at the time. 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 Since those 2 surgeries, he has had progressively worsening pain and weakness in his right shoulder. He was getting steroid injections in that shoulder over those years. He estimates that he received about 6 to 7 injections in that right shoulder with decreasing efficacy over time. They eventually became completely ineffective, and he stopped getting them. His last injection was about 3 to 4 years ago. I previously replaced his left shoulder with excellent results, and is extremely pleased with that side with marked improvement in his pain and function. He is interested in similar treatment on his right side. Principal Diagnosis Right shoulder rotator cuff tear arthropathy Discharge Data Allergies Allergy/AdvReac Type Severity Reaction Status Date / Time clopidogrel [From Plavix] AdvReac Severe SHORT OF Verified 05/21/22 06:46 BREATH PER PT. Procedures Performed Operation Date: 05/21/22 08:15 Actual Procedures p Right Reverse Total Shoulder Arthroplasty(Right) - Eder Rosario M.D. Ordered Studies 05/21/22 05:00 US - OR guided needle placemen Routine Hospital Course (1) Right rotator cuff tear arthropathy: Patient underwent a right reverse total shoulder arthroplasty on the date of admission. Patient tolerated the procedure well and was transferred up to the general orthopedic surgery floor in stable condition. Perioperative antibiotic coverage was initiated, and continued for 24 hours postoperatively. DVT prophylaxis was initiated consisting of SCDs and aspirin 325 mg daily. Perioperative pain control regimen was transitioned to strictly oral pain medications by postoperative day 1. On postoperative day 1 the patient was doing very well. Pain was well controlled, and patient was mobilizing well with therapy. Patient was determined be safe and ready for discharge to home. Total Time Total Time Spent Total Time Spent (In Minutes): 15 Discharge Plan Discharge Items Patient Disposition: Home - Self-Care Reason For Visit: Right Shoulder Rotator Cuff Tear Arthropathy Discharge Diagnosis: Right shoulder rotator cuff tear arthropathy Activity: Per Instructions section Call non-emergency contact if: your pain is not controlled, your temperature is above 101.5, your wound has increased redness and your wound has increased drainage Follow-up/Referrals: Eder Rosario M.D. [Physician] - PCP,SADE [Primary Care Provider] - Diet: Regular Addtl Attending Provider Instructions: Things to Watch Out For -Go to the Emergency Room if you have sudden onset of nausea, vomiting, chest pain, shortness of breath, or uncontrollable pain. -Call the clinic or go to the Emergency Room if you have a sudden increase in the amount of wound drainage or the drainage becomes thick, yellow or green, or foul-smelling. -For routine questions, call the clinic at [phone] during regular business hours (8am-5pm). For urgent issues after regular business hours, you may call the clinic to be connected to the on-call physician. Dressings -A special waterproof, silver-impregnated dressing was placed on your shoulder. Keep this dressing in place for 1 week after surgery. You may shower with the waterproof dressing in place, but do not soak the dressing in the bathtub or pool. -One week after surgery, you may remove the waterproof dressing. You may continue to shower, and let water run BRIEFLY over the incision, but do not soak the incision in the bathtub or pool for 2 weeks. You may also gently clean the incision with mild soap and water; pat the incision dry after cleaning-do not ru b the incision. Apply a new dressing daily thereafter. Shoulder Exercises -Keep your operative shoulder in the sling for comfort, except as detailed below. -You should come out of the sling 4-5 times a day for passive pendulum exercises: lean over and swing your arm in a circular pattern. -You should also do active-assisted forward flexion exercises: use your opposite hand to lift your operative arm forward to 90 degrees. -Do not flex your elbow (curl motion) or supinate your forearm (rotating palm up) against resistance. -Do not use your arm to push yourself up out of bed or up from a seated position. Ice Pack -You may use an ice pack for pain relief. You should use it 20-30 minutes at a time. Place a towel between the ice pack and your skin to prevent frostbite. -You should use the ice pack fairly regularly for the first 1-2 weeks after surgery to help reduce pain and inflammation. -About 2 weeks after your surgery, you should start using heat to loosen up your shoulder prior to doing your stretching exercises, then use the cooling sleeve after your exercises are complete to reduce swelling and pain. Pain Medicines -Your prescriptions for pain medications have already been sent to the pharmacy on file at [facility]. -You have been prescribed an anti-inflammatory (Motrin/ibuprofen) and a non- narcotic pain medicine (Tylenol/acetaminophen). These are your primary pain medications. Take them each every 6 hours as instructed. It is recommended that you stagger these medicines every 3 hours (i.e. take ibuprofen at 8:00 am, then acetaminophen at 11:00 am, then ibuprofen at 2:00 pm, etc) -DO NOT take any additional anti-inflammatories (Advil, Aleve/naproxen, Mobic/meloxicam, Celebrex) or any additional Tylenol/acetaminophen products with these prescribed medications. -You have also been prescribed an additional narcotic pain medication (oxycodone). Take this medicine ONLY for breakthrough pain not controlled by the ibuprofen and acetaminophen. -Do not drive or operate heavy machinery while taking the narcotic medication. -Common side effects of narcotic pain medicines include itching, nausea, constipation, and feeling "loopy". However, if you develop a rash or hives, stop taking the medicine and call the clinic. If you develop swelling in your throat or difficulty breathing, go to the Emergency Room or call 911 IMMEDIATELY. -You may take over the counter stool softeners if needed for constipation. Aspirin -Take a full strength (325mg) aspirin every day for 4 weeks (28 days) to prevent blood clots. -If you were taking a baby aspirin (81mg) prior to surgery, you may resume taking this 81mg dose after you complete the 28-day course of the 325mg strength dose; do not take the 325mg dose in addition to your 81mg dose. -Be aware that you will bruise easier while taking Aspirin; this is normal. However, if you develop a significantly large area of swelling after an injury, or have a cut that will not stop bleeding, call the clinic or go to the Emergency Room immediately. Pending Studies at Discharge: No Stand-Alone Forms: My [facility] Medications and DC Order Prescriptions: Continued lisinopril [Zestril] 5 mg tablet 5 mg PO QPM 30 Days Qty: 30 11RF atorvastatin 80 mg tablet 80 mg PO QAM metoprolol succinate [Toprol XL] 50 mg tablet extended release 24 hr 50 mg PO QAM clopidogrel [Plavix] 75 mg tablet 75 mg PO QAM Stiolto Respimat 2.5-2.5 mcg/actuation Mist 2 puff INHALATION DAILY albuterol sulfate 200 mcg Capsule, W/Inhalation Device 200 mcg INHALATION DAILY Discontinued aspirin 81 mg tablet,delayed release (DR/EC) 81 mg PO QPM tramadol 50 mg Tablet 50 mg PO BID PRN (Reason: Pain) Discharge Orders: Discharge Order (Routine); Ordered 05/22/22 Ordered By: Tommy Johnson Admission Data Admit Date/Time: 05/21/22 10:49 Attending Provider: Eder Rosario Admit Provider: Eder Rosario Primary Care Provider: [id number]
[2022-05-22] MEDS ORDERED: METOPROLOL SUCC 50MG EXT REL TAB PO SCH (09:00)
[2022-05-22] MEDS ORDERED: MULTIVITAMIN TAB PO SCH (09:00)
[2022-05-22] MEDS ORDERED: UMECLIDINIUM/VILANTEROL 62.5/25MCG 7 PUFFS/INHALER INH SCH (09:00)
[2022-05-22] MEDS ORDERED: CLOPIDOGREL BISULFATE 75 MG TAB PO SCH (09:00)
[2022-05-22] MEDS ORDERED: ALBUTEROL HFA 8 GM INHALER INH SCH (09:00)
[2022-05-22] MEDS ORDERED: ATORVASTATIN 40 MG TAB PO SCH (09:00)
[2022-05-22] MEDS ORDERED: NON-FORMULARY MEDICATION (Tiotropium-Olodaterol [Stiolto Respimat] 2.5-2.5 mcg/actuation M INH SCH (09:00)
== END 2022-05-22 10:48 | disposition home or self-care (01) | DRG 483 ==
LOC: ASU 06:25 → PACUINP 10:49 → 3E 13:59

== ENCOUNTER 2024-05-18 07:54 | Inpatient (IN) ==
--- NOTE | 2024-05-18 08:06 | Emergency Department Note ---
Impression & Plan Hypoxia, Acute exacerbation of chronic obstructive pulmonary disease, Coronavirus infection ED Provider Note Provider: Alek Huizar MD CHIEF COMPLAINT: Short of breath fatigue HISTORY OF PRESENT ILLNESS: Patient is a 73-year-old gentleman history of CAD with stent, and COPD presenting here today reporting for the past 5 days being more short of breath. Having some intermittent chest discomfort and more fatigued as well. Noted to have low oxygen levels at home over the last several days according to the patient. Is continuing to smoke. Has been using home breathing treatments without much improvement. No syncope or falls. Intermittent chest discomfort not exertional but not able to get around very well due to shortness of breath. No sick contacts reported or recent travel. No significant leg swelling noted. No fevers reported. No significant sore throat or sinus congestion reported. No nausea vomiting or diarrhea reported. [facility] PAST MEDICAL HISTORY: As noted above MEDICATIONS: Reviewed home medications SOCIAL HISTORY: Smoker PHYSICAL EXAM: GENERAL: alert and oriented in no acute distress on stretcher Head: normocephalic and atraumatic EYES: No injection, discharge or icterus. PERRL, EOMI. NECK: Trachea midline. Supple. ENT: Mucous membranes pink and moist. LUNGS: Airway patent. Mild tachypnea, breath sounds diffuse expiratory wheeze HEART: Regular rate and rhythm. No chest wall tenderness ABDOMEN: Soft and non-tender, without guarding or rebound. SKIN: Acyanotic, warm, dry, without rashes EXTREMITIES: Without swelling, tenderness or deformity NEUROLOGICAL: No focal deficits. No aphasia. No facial droop or slurred speech. Ambulatory. EK beats per minute. Normal sinus rhythm. No PVC or PAC. No acute ST segment elevation or depression with a QTc of 422. CONTINUOUS CARDIAC MONITORING: was ordered and showed a heart rate of 80s to 90s bpm in normal sinus rhythm Patient's laboratory studies and imaging reviewed. Differential includes Reactive airway disease, pneumonia, pneumothorax, COPD, CHF, infections, cardiac ischemia, pulmonary embolism, musculoskeletal, gastrointestinal, as well as other pathologies. IMPRESSION/MEDICAL DECISION MAKING: Patient history of smoking and COPD. New oxygen requirement the last couple days. No significant leg swelling. Chest x-ray obtained look for pneumonia or signs of fluid overload but lower suspicion for this. Seem to have some mild tachypnea and hypoxia related to COPD exacerbation given his diffuse wheeze. Respiratory viral panel was sent as well as basic blood work. EKG obtained without acute ischemic change but troponin sent as well given his cardiac history and hypoxia here. Given his increased report of fatigue VBG was sent but does not appear severely encephalopathic. Given an IV dose of steroids given his presumed COPD exacerbation. VBG without significant acidosis or hypercarbia. Emphysematous changes of the chest x-ray per my review and interpretation questioning a right lower lobe pneumonia. Blood work here without significant leukocytosis or anemia. No significant lecture light abnormality signs of renal dysfunction. Normal LFTs. Will cover to dose azithromycin and ceftriaxone given history of COPD and the chest x-ray findings and his hypoxia today. Procalcitonin not significantly elevated. Troponin high-sensitivity of 20 today no clear baseline. Respiratory viral panel positive for coronavirus (non-COVID). This likely precipitated COPD exacerbation and hypoxia. Given the significant hypoxia with a COPD and question of pneumonia will bring in for further care here and the patient was reluctantly agreeable. Hospitalist team contacted. DIAGNOSIS: Hypoxia, acute COPD exacerbation, coronavirus DISPOSITION: Hospitalist will evaluate Patient was agreeable with this plan. Past Med/Surg History Problem List (Updated 05/18/24 @ 10:20 by Verena Guajardo PA-C) COVID Coronavirus infection (Acute) CAD (coronary artery disease) s/p STEMI with MARIA GUADALUPE x 2-Cx and RCA 02/23/20 Pneumonia Acute exacerbation of chronic obstructive pulmonary disease (Acute) Hypoxia (Acute) Right rotator cuff tear arthropathy No pertinent past surgical history Acute ST elevation myocardial infarction (STEMI) of inferior wall Cigarette smoker Encounter for pre-operative examination Left rotator cuff tear arthropathy Hypoxia (Acute) Status post reverse arthroplasty of left shoulder 10/03/20 LMA#5 + PNB. Hyperlipemia S/P PTCA (percutaneous transluminal coronary angioplasty) S/P drug eluting coronary stent placement COPD (chronic obstructive pulmonary disease) (Acute) controlled, stable per pt Medical History (Updated 05/18/24 @ 10:20 by Verena Guajardo PA-C) History of CA (myocardial infarction) 02/2020 (treated at [facility]) s/p MARIA GUADALUPE x2, Cx and RCA. Com[facility]. [facility] [place] [facility] . Ischemic cardiomyopathy EF 40-45% on echo 02/22/20. HTN (hypertension) controlled, stable per pt Admitted to intensive care unit Surgical History History of tooth extraction History of surgical amputation of finger History of repair of right rotator cuff History of colonoscopy History of cardiac catheterization s/p STEMI with MARIA GUADALUPE x 2 02/23/20 Cx and RCA; LM -medium caliber, angiographically normal LAD -medium caliber vessel, proximal luminal irregularities, 20 to 30% mid stenosis at takeoff of second diagonal. Distal luminal regularities 60% apex. Medium caliber second diagonal without significant disease. Circumflex -medium caliber, 70% mid segment stenosis. Medium caliber OM 2 without significant disease RCA -dominant, calcified, 30 to 40% proximal, diffuse 40%/ectatic disease in the midsegment prior to 100% latemid 100% acute on chronic occlusion. Distal vessel partially fills via [id number] collaterals. Family History Other No family history of adverse response to anesthesia No pertinent family history Social History Smoking Status: Current every day smoker Tobacco Type: Cigarettes Cigarettes Per Day: 10 per day- advised; Second Hand Exposure: Yes; Do You Dip or Chew Tobacco: No; Hx Alcohol Use: No Hx Substance Use: No Preferred Language: French Communication Ability: Effective Visual Impairment: No Limitations Hearing Ability: Normal Title I Paraprofessional Required: No Beliefs That Will Affect Care: None marital status: marital status details: Current Living Situation: Spouse current occupational status: retired Feels Safe at Home: Yes Assistive Devices: None Allergies Allergies Allergy/AdvReac Type Severity Reaction Status Date / Time clopidogrel [From Plavix] AdvReac Severe SHORT OF Verified 05/21/22 06:46 BREATH PER PT. Home Meds Home Medications Medication Instructions Recorded Confirmed atorvastatin 80 mg tablet 80 mg PO QAM 07/18/20 05/21/22 metoprolol succinate 50 mg 50 mg PO QAM 07/18/20 05/21/22 tablet,extended release 24 hr (Toprol XL) clopidogrel 75 mg tablet (Plavix) 75 mg PO QAM 05/05/22 05/21/22 albuterol sulfate 200 mcg capsule 200 mcg inhalation DAILY 05/21/22 05/21/22 with inhalation device tiotropium 2.5 mcg-olodaterol 2.5 2 puff inhalation DAILY 05/21/22 05/21/22 mcg/actuation mist for inhalation (Stiolto Respimat) Previous Rx's Medication Instructions Recorded lisinopril 5 mg tablet (Zestril) 5 mg PO QPM 30 days #30 tabs 03/07/20 Results & Data (ED) Vital Signs Vital Signs - 24 hr 05/18/24 07:58 05/18/24 08:12 05/18/24 08:12 Temperature 36.5 C Temperature Source Temporal Artery Scan Pulse Rate 102 H Pulse Rate [Apical] Pulse Rhythm Respiratory Rate 24 Respiratory Effort / Characteristics Spontaneous Labored Respiratory Pattern Grunting Tachypnea Blood Pressure 128/74 Blood Pressure [Right Arm] Blood Pressure Mean 92 Blood Pressure Mean [Right Arm] Blood Pressure Position [Right Arm] Pulse Oximetry 84 L 84 L Oxygen Delivery Method Room Air Room Air Oxygen Flow Rate Sepsis Recent Fever Within 48 Hours No Sepsis New/Unexplained Change in Mental Status N/A Sepsis Action Taken by Nursing Physician Notified Oxygen Flow Rate - Titration 5 Pulse Oximetry Post Tiitration 91 05/18/24 08:12 05/18/24 08:12 05/18/24 08:27 Temperature Temperature Source Pulse Rate 90 91 H Pulse Rate [Apical] Pulse Rhythm Regular Respiratory Rate 28 H 26 H Respiratory Effort / Characteristics Labored Respiratory Pattern Blood Pressure Blood Pressure [Right Arm] 110/77 Blood Pressure Mean Blood Pressure Mean [Right Arm] 88 Blood Pressure Position [Right Arm] Sitting Pulse Oximetry 97 91 Oxygen Delivery Method Nasal Cannula Nasal Cannula Oxygen Flow Rate 5 5 Sepsis Recent Fever Within 48 Hours Sepsis New/Unexplained Change in Mental Status Sepsis Action Taken by Nursing Oxygen Flow Rate - Titration Pulse Oximetry Post Tiitration 05/18/24 08:44 05/18/24 09:15 Temperature Temperature Source Pulse Rate Pulse Rate [Apical] 83 87 Pulse Rhythm Respiratory Rate 16 24 Respiratory Effort / Characteristics Non-Labored Spontaneous Respiratory Pattern Blood Pressure Blood Pressure [Right Arm] 137/68 Blood Pressure Mean Blood Pressure Mean [Right Arm] 91 Blood Pressure Position [Right Arm] Pulse Oximetry 94 95 Oxygen Delivery Method Nasal Cannula Nasal Cannula Oxygen Flow Rate 4 5 Sepsis Recent Fever Within 48 Hours Sepsis New/Unexplained Change in Mental Status Sepsis Action Taken by Nursing Oxygen Flow Rate - Titration Pulse Oximetry Post Tiitration Laboratory Data 05/18/24 08:15 05/18/24 08:15 Lab Results 05/18/24 Range/Units 08:15 WBC 7.85 (4.8-10.8) K/ul RBC 4.86 (4.70-6.10) M/uL Hgb 15.5 (14.0-18.0) g/dl Hct 46.1 (42.0-52.0) % MCV 94.9 (80.0-100.0) fL MCH 31.9 (25.0-34.0) pg MCHC 33.6 (32.0-36.0) g/dL RDW Std Deviation 46.0 (36.4-46.3) fL RDW Coeff of Best 13.1 (11.5-14.5) % Plt Count 140 (130-400) K/uL MPV 11.0 (9.4-12.4) fL Immature Gran % (Auto) 0.5 % Neut % (Auto) 82.6 % Lymph % (Auto) 6.2 % Darke % (Auto) 10.4 % Eos % (Auto) 0.0 % Baso % (Auto) 0.3 % Neut # (Auto) 6.48 (1.40-6.50) K/uL Lymph # (Auto) 0.49 L (1.20-3.40) K/uL Darke # (Auto) 0.82 H (0.11-0.59) K/uL Eos # (Auto) 0.00 (0.00-0.50) K/uL Baso # (Auto) 0.02 (0.00-0.20) K/uL Immature Gran # (Auto) 0.04 (0.01-0.20) K/uL PT 11.7 (9.0-12.0) Seconds INR 1.1 (0.9-1.1) VBG pH 7.43 H (7.36-7.41) VBG pCO2 43 (38-50) mmHg VBG pO2 58 mmHg VBG HCO3 29 mmol/L VBG O2 Saturation 90.4 % VBG Base Excess 3.6 mEq/L Sodium 138 (136-145) mmol/L Potassium 3.7 (3.5-5.1) mmol/L Chloride 100 (98-107) mmol/L Carbon Dioxide 27 (21-32) mmol/L Anion Gap 11 (3-11) BUN 20 (6-23) mg/dl Creatinine 1.01 (0.6-1.4) mg/dl Est Cr Clr Drug Dosing 51.1 ml/min eGFR 78.53 BUN/Creatinine Ratio 19.8 (10-20) Glucose 136 H (70-99(Fasting)) mg/dl Calcium 9.4 (8.6-10.3) mg/dl Magnesium 2.1 (1.7-2.4) mg/dl Total Bilirubin 0.7 (0.2-1.0) mg/dl AST 24 (13-39) U/L ALT 13 (7-52) U/L Alkaline Phosphatase 92 (34-104) U/L Troponin I High Sens 20.6 H (0-20) pg/ml Total Protein 7.5 (6.0-8.3) gm/dl Albumin 4.2 (3.4-5.0) gm/dl Globulin 3.3 (2.5-4.0) gm/dl Albumin/Globulin Ratio 1.3 (0.9-2) Procalcitonin 0.15 (0-0.5) ng/ml Adenovirus (PCR) Not Detected (NotDetected) B. pertussis DNA (PCR) Not Detected (NotDetected) B.parapertussis DNA PCR Not Detected (NotDetected) C. pneumoniae DNA (PCR) Not Detected (NotDetected) Coronavirus OC43 (PCR) DETECTED A (NotDetected) Coronavirus HKU1 (PCR) Not Detected (NotDetected) Coronavirus 229E (PCR) Not Detected (NotDetected) SARS-CoV-2 (PCR) Not Detected (NotDetected) Coronavirus NL63 (PCR) Not Detected (NotDetected) Human Metapneumovir PCR Not Detected (NotDetected) Influenza Type A (PCR) Not Detected (NotDetected) Influenza Type B (PCR) Not Detected (NotDetected) M. pneumoniae (PCR) Not Detected (NotDetected) Parainfluenza 1 (PCR) Not Detected (NotDetected) Parainfluenza 2 (PCR) Not Detected (NotDetected) Parainfluenza 3 (PCR) Not Detected (NotDetected) Parainfluenza 4 (PCR) Not Detected (NotDetected) RSV (PCR) Not Detected (NotDetected) Entero/Rhino (PCR) Not Detected (NotDetected) Administered Medications Albuterol (Albuterol Hfa 8 Gm Inhaler) 2 puffs INH Q4R ASH Stop: 06/17/24 12:59 Last Admin: 05/18/24 13:09 Dose: 2 puffs Documented By: SANDY Enoxaparin Sodium (Enoxaparin Inj 40 Mg/0.4 Ml Syr) 40 mg SQ Q24H ASH Stop: 06/17/24 12:59 Last Admin: 05/18/24 13:15 Dose: 40 mg Documented By: JACEY Discontinued Medications Albuterol (Albut/Ipratrop 3mg/0.5mg Neb 3 Ml Vial) 12 ml NEB ONE ONE; Protocol Stop: 05/18/24 08:13 Last Admin: 05/18/24 08:42 Dose: 12 ml Documented By: REGLA Aspirin (Aspirin Chew 324 Mg) 324 mg PO NOW STA Stop: 05/18/24 10:13 Last Admin: 05/18/24 10:41 Dose: 324 mg Documented By: CHANTE Azithromycin (Azithromycin 250 Mg Tab) 500 mg PO NOW ONE Stop: 05/18/24 08:50 Last Admin: 05/18/24 08:59 Dose: 500 mg Documented By: CHANTE Ceftriaxone Sodium (Rocephin) 2,000 mg in 50 mls @ 100 mls/hr IV NOW STA Stop: 05/18/24 09:18 Last Infusion: 05/18/24 09:30 Dose: Infused Documented By: Admin: 05/18/24 08:59 Dose: 100 mls/hr Documented By: CHANTE Remdesivir 200 mg/ Sodium (Chloride) 250 mls @ 125 mls/hr IV ONE STA; Protocol Stop: 05/18/24 12:14 Last Infusion: 05/18/24 13:05 Dose: Infused Documented By: Admin: 05/18/24 11:01 Dose: 125 mls/hr Documented By: JACEY Methylprednisolone (Methylprednisolone 125 Mg/2 Ml Vial) 125 mg IV NOW STA Stop: 05/18/24 08:13 Last Admin: 05/18/24 08:18 Dose: 125 mg Documented By: MMG Imaging Data Radiologist's Impression: Chest X-Ray 05/18/24 08:03 XR chest 1V portable CLINICAL HISTORY: Dyspnea. COMPARISON STUDY: Chest CT October 06, 2020. Chest radiograph May 07, 2022. FINDINGS: Bilateral shoulder arthroplasties are incidentally noted. Lung hyperexpansion with underlying emphysema is present. Right basilar airspace opacity is present. Left lung is clear. Pulmonary vascularity is normal. Cardiomediastinal silhouette is stable. IMPRESSION: 1. Right basilar airspace opacity suggestive of pneumonia. Post treatment radiographs to ensure resolution are recommended. 2. Emphysema. ACT 112: Negative or not required by law. Electronically signed by: Silvio Duenas M.D. 05/18/2024 8:33 AM Discharge Plan Visit Data Chief Complaint: Shortness of Breath/Dyspnea Stated Complaint: LOW OX/80 THEN GOES UP 88, CHEST PAINS/COMES GOES ED Provider: Alek Huizar Discharge Problem: Hypoxia, Acute exacerbation of chronic obstructive pulmonary disease, Coronavirus infection Patient Disposition: Being Evaluated by Hospitalist Discharge Instructions Interventions: ED Discharge Assessment Last Done: 05/18/24 12:41
[2024-05-18] MEDS: methylPREDNISolone 125 MG/2 ML VIAL IV STA (08:18)
--- NOTE | 2024-05-18 08:35 | XRay Report ---
XR chest 1V portable CLINICAL HISTORY: Dyspnea. COMPARISON STUDY: Chest CT October 06, 2020. Chest radiograph May 07, 2022. FINDINGS: Bilateral shoulder arthroplasties are incidentally noted. Lung hyperexpansion with underlyi ng emphysema is present. Right basilar airspace opacity is present. Left lung is clear. Pulmonary vas cularity is normal. Cardiomediastinal silhouette is stable. IMPRESSION: 1. Right basilar airspace opacity suggestive of pneumonia. Post treatment radiographs to ensure resol ution are recommended. 2. Emphysema. ACT 112: Negative or not required by law. Electronically signed by: Silvio Duenas M.D. 05/18/2024 8:33 AM
[2024-05-18 08:38] LABS: Base Excess VBG 3.6 mEq/L; HCO3 VBG 29 mmol/L; Oxygen Saturation VBG 90.4 %; PCO2 VBG 43 mmHg (38-50); PO2 VBG 58 mmHg; pH VBG 7.43 (7.36-7.41)
[2024-05-18] MEDS: ALBUT/IPRATROP 3MG/0.5MG NEB 3 ML VIAL NEB ONE (08:42)
[2024-05-18 08:55] LABS: Basophils # (auto) 0.02 K/uL (0.00-0.20); Basophils % (auto) 0.3 %; Hematocrit (blood only) 46.1 % (42.0-52.0); Hemoglobin 15.5 g/dl (14.0-18.0); Immature Granulocytes # (auto) 0.04 K/uL (0.01-0.20); Immature Granulocytes % (auto) 0.5 %; Lymphocytes # (auto) 0.49 K/uL (1.20-3.40); Lymphocytes % (auto) 6.2 %; Mean Corpuscular Hemoglobin 31.9 pg (25.0-34.0); Mean Corpuscular Hgb Conc 33.6 g/dL (32.0-36.0); Mean Corpuscular Volume 94.9 fL (80.0-100.0); Monocytes # (auto) 0.82 K/uL (0.11-0.59); Monocytes % (auto) 10.4 %; Neutrophils # (auto) 6.48 K/uL (1.40-6.50); Neutrophils % (auto) 82.6 %; Platelet Count 140 K/uL (130-400); RDW Coefficient of Variation 13.1 % (11.5-14.5); Red Blood Count 4.86 M/uL (4.70-6.10); White Blood Count 7.85 K/ul (4.8-10.8)
[2024-05-18] MEDS: cefTRIAXone SODIUM 2,000 MG/50 ML BAG IV STA (08:59)
[2024-05-18] MEDS: AZITHROMYCIN 250 MG TAB PO ONE (08:59)
[2024-05-18 09:04] LABS: Albumin Globulin Ratio 1.3 (0.9-2); Albumin Level 4.2 gm/dl (3.4-5.0); BUN Creatinine Ratio 19.8 (10-20); Bilirubin,Total 0.7 mg/dl (0.2-1.0); Calcium 9.4 mg/dl (8.6-10.3); Creatinine Clr Calc Pharmacy 51.1 ml/min; Globulin 3.3 gm/dl (2.5-4.0); Magnesium 2.1 mg/dl (1.7-2.4); Potassium 3.7 mmol/L (3.5-5.1); Total Protein 7.5 gm/dl (6.0-8.3)
[2024-05-18 09:09] LABS: Troponin I High Sensitivity 20.6 pg/ml (0-20)
[2024-05-18 09:10] LABS: INR 1.1 (0.9-1.1); Prothrombin Time 11.7 Seconds (9.0-12.0)
[2024-05-18 09:44] LABS: Adenovirus PCR Not Detected (NotDetected); Bordetella parapertussis PCR Not Detected (NotDetected); Bordetella pertussis PCR Not Detected (NotDetected); Chlamydia pneumoniae PCR Not Detected (NotDetected); Coronavirus 229E PCR Not Detected (NotDetected); Coronavirus CoV-2 (COVID19)PCR Not Detected (NotDetected); Coronavirus HKU1 PCR Not Detected (NotDetected); Coronavirus NL63 PCR Not Detected (NotDetected); Coronavirus OC43PCR DETECTED (NotDetected); Human Metapneumovirus PCR Not Detected (NotDetected); Influenza A PCR Not Detected (NotDetected); Influenza B PCR Not Detected (NotDetected); Mycoplasma pneumoniae PCR Not Detected (NotDetected); Parainfluenza Virus 1 PCR Not Detected (NotDetected); Parainfluenza Virus 2 PCR Not Detected (NotDetected); Parainfluenza Virus 3 PCR Not Detected (NotDetected); Parainfluenza Virus 4 PCR Not Detected (NotDetected); Respiratory Syncytial VirusPCR Not Detected (NotDetected); Rhinovirus/Enterovirus PCR Not Detected (NotDetected)
--- NOTE | 2024-05-18 09:45 | History & Physical Report ---
Date of Service May 18, 2024 Assessment & Plan (1) Pneumonia: Plan: patient with PNA, COPD exacerbation, and COVID infection CXR showing right basilar airspace opacity suggestive of pneumonia and emphysema Biofire positive for COVID - no leukocytosis, VSS - hypoxic (84% RA) - procal negative - Continue Rocephin + azithromycin - sputum cultures ordered - defer blood cultures as already received IV antibiotics in ED - incentive spirometry - Concern for aspiration with chronic cough and occasional choking on food, speech consulted, will add Flagyl if positive for aspiration (2) Acute exacerbation of chronic obstructive pulmonary disease: Plan: - Continue home inhalers - Continue with azithromycin - Solu-Medrol 125 mg IV in ED -> Decadron 6mg daily to begin 05/19 - scheduled albuterol Hfa, flutter valve QID, incentive spirometry, Mucinex - Promote oral hydration - wean oxygen as tolerated (3) COVID: Plan: - incentive spirometry Q1H - oxygen as needed; although attempt to wean off as tolerated - Albuterol HFA Q4H; avoid DuoNebs with COVID as can aerosolize infection - dexamethasone 6 mg daily - remdesivir 200 mg IV on admission, continue with 100 mg daily x 5 days (4) Hypoxia: Plan: 84% RA -> 5L NC VBG WNL 7.43/43/29 D-dimer added with hypoxia and hypercoagulable state with COVID Wean O2 as tolerated with Tx above (5) CAD (coronary artery disease): Plan: STEMI s/p stent placement x 2 EKG showing NSR, no ischemic changes Stated he does have intermittent achy chest pain that lasts for about a minute at rest ASA ordered on admission continue statin - patient stated he no longer takes plavix Troponin mildly elevated at 20.6, will trend trop EKG prn with chest pain Plan Patient is a 73-year-old male with a past medical history of COPD, CAD, hypertension. He is being admitted for hypoxia secondary to pneumonia, COVID, and COPD exacerbation. He does note chronic cough and occasional choking; concern for aspiration pneumonia, speech consulted, can add Flagyl if needed. Will continue treatment with ceftriaxone and azithromycin, along with remdesivir and dexamethasone. Chronic stable diagnoses: HTN - Continue lisinopril and metoprolol VTE ppx: Lovenox Diet: heart healthy; may adjust pending speech eval Dispo: med/tele Admission and Anticipated Discharge Date Admission Date: 05/18/23 History of Present Illness Chief Complaint: dyspnea Primary Care Provider: [facility] Patient is a 73-year-old male with past medical history of CAD s/p stent x 2, hypertension, ischemic cardiomyopathy, COPD. the patient presents for worsening shortness of breath x 1 week along with intermittent chest pain. The patient stated he has chronic shortness of breath but it has been acutely worsened both at rest and on exertion. He also has a chronic cough with white sputum production, acutely worsened. He has chronic rhinorrhea, unchanged. Along with chronic diarrhea, unchanged. He has also had an extremely decreased appetite for the past week and feels as though he is lost 10 pounds. He stated that the chest pain is achy, sometimes sharp, lasts for about a minute and has been occu rring more often for the past 2 weeks. It is on the left side sometimes the right. It also occurs at rest. It feels different than when he had a STEMI in 2020, when he had a STEMI he had extremely sharp chest pain that woke him up at 2 AM. EKG showing NSR in ED, troponin essentially negative; will trend troponin order stat aspirin. He stated he does often choke on his food, concern for aspiration pneumonia; Speech consulted. He stated he has not traveled recently but with hypoxia and hypercoagulable state with COVID, will order D- dimer. Patient denies fever, chills, headache, dizziness, lightheadedness, sore throat, abdominal pain, nausea, vomiting. He does have an extensive smoking history, 1 pack/day for his entire life. Denies alcohol use. No history of DM or CA. Does not use oxygen at baseline. Took his home medications this morning. Wishes to be full code. In the ED the patient was given a DuoNeb treatment, Rocephin, Zithromax, Solu- Medrol. His chest x-ray showed right basilar airspace opacity suggestive of pneumonia along with emphysema. This BioFire also showed COVID. Patient's updated at bedside. Allergies Allergy/AdvReac Type Severity Reaction Status Date / Time clopidogrel [From Plavix] AdvReac Severe SHORT OF Verified 05/21/22 06:46 BREATH PER PT. Home Medications Medication Instructions Recorded Confirmed Type lisinopril 5 mg tablet (Zestril) 5 mg PO QPM 30 days #30 tabs 03/07/20 05/21/22 Rx atorvastatin 80 mg tablet 80 mg PO QAM 07/18/20 05/21/22 History metoprolol succinate 50 mg 50 mg PO QAM 07/18/20 05/21/22 History tablet,extended release 24 hr (Toprol XL) clopidogrel 75 mg tablet (Plavix) 75 mg PO QAM 05/05/22 05/21/22 History albuterol sulfate 200 mcg capsule 200 mcg inhalation DAILY 05/21/22 05/21/22 History with inhalation device tiotropium 2.5 mcg-olodaterol 2.5 2 puff inhalation DAILY 05/21/22 05/21/22 History mcg/actuation mist for inhalation (Stiolto Respimat) Past Med/Surg History Problem List (Updated 05/18/24 @ 10:20 by Verena Guajardo PA-C) COVID Coronavirus infection (Acute) CAD (coronary artery disease) s/p STEMI with MARIA GUADALUPE x 2-Cx and RCA 02/23/20 Pneumonia Acute exacerbation of chronic obstructive pulmonary disease (Acute) Hypoxia (Acute) Right rotator cuff tear arthropathy No pertinent past surgical history Acute ST elevation myocardial infarction (STEMI) of inferior wall Cigarette smoker Encounter for pre-operative examination Left rotator cuff tear arthropathy Hypoxia (Acute) Status post reverse arthroplasty of left shoulder 10/03/20 LMA#5 + PNB. Hyperlipemia S/P PTCA (percutaneous transluminal coronary angioplasty) S/P drug eluting coronary stent placement COPD (chronic obstructive pulmonary disease) (Acute) controlled, stable per pt Medical History (Updated 05/18/24 @ 10:20 by Verena Guajardo PA-C) History of VT (myocardial infarction) 02/2020 (treated at [facility]) s/p MARIA GUADALUPE x2, Cx and RCA. [facility]. [facility] . Ischemic cardiomyopathy EF 40-45% on echo 02/22/20. HTN (hypertension) controlled, stable per pt Admitted to intensive care unit Surgical History History of tooth extraction History of surgical amputation of finger History of repair of right rotator cuff History of colonoscopy History of cardiac catheterization s/p STEMI with MARIA GUADALUPE x 2 02/23/20 Cx and RCA; LM -medium caliber, angiographically normal LAD -medium caliber vessel, proximal luminal irregularities, 20 to 30% mid stenosis at takeoff of second diagonal. Distal luminal regularities 60% apex. Medium caliber second diagonal without significant disease. Circumflex -medium caliber, 70% mid segment stenosis. Medium caliber OM 2 without significant disease RCA -dominant, calcified, 30 to 40% proximal, diffuse 40%/ectatic disease in the midsegment prior to 100% latemid 100% acute on chronic occlusion. Distal vessel partially fills via [id number] collaterals. Family History Other No family history of adverse response to anesthesia No pertinent family history Social History Smoking Status: Current every day smoker Tobacco Type: Cigarettes Cigarettes Per Day: 10 per day- advised; Second Hand Exposure: Yes; Do You Dip or Chew Tobacco: No; Hx Alcohol Use: No Hx Substance Use: No Preferred Language: Amharic Communication Ability: Effective Visual Impairment: No Limitations Hearing Ability: Normal Enterprise Integration Developer Required: No Beliefs That Will Affect Care: None marital status: marital status details: Current Living Situation: Spouse current occupational status: retired Feels Safe at Home: Yes Assistive Devices: None Review of Systems Review of Systems: see HPI Physical Exam Physical Exam: The patient is awake, alert and oriented 3, well developed and well nourished, normocephalic and atraumatic, in no acute distress. Non-toxic appearing. HEENT- EOMI, mucous membranes moist. Hearing grossly intact. Heart-normal S1 and S2. No murmurs, rubs or gallops. Lungs-decreased bilaterally, no respiratory distress, no accessory muscle use. Abdomen-normal bowel sounds and soft. No ascites noted. Non-tender. Extremities- no clubbing, cyanosis, or edema. Rheumatologic-normal range of motion. Psychiatric-normal affect. Results & Data Results & Data Vital Signs (Past 12 Hours) Vital Signs Temp Pulse Pulse Resp BP BP Pulse Ox 05/18/24 09:15 87 24 137/68 95 05/18/24 08:44 83 16 94 05/18/24 08:27 91 H 05/18/24 08:12 90 26 H 91 05/18/24 08:12 28 H 110/77 97 05/18/24 08:12 84 L 05/18/24 07:58 36.5 C 102 H 24 128/74 84 L O2 Del Method O2 Flow Rate 05/18/24 09:15 Nasal Cannula 5 05/18/24 08:44 Nasal Cannula 4 05/18/24 08:27 05/18/24 08:12 Nasal Cannula 5 05/18/24 08:12 Nasal Cannula 5 05/18/24 08:12 Room Air 05/18/24 07:58 Room Air Laboratory Results reviewed CBC, CMP, VBG, troponin Diagnostic Findings reviewed CXR Medications Administered ED: DuoNeb, Rocephin, Zithromax, Solu-Medrol 125 IV ECG Additional Comments: NSR, no ischemic changes Code Status & VTE Plan Code Status full VTE Prophylaxis Plan VTE Prophylaxis will be ordered: Yes Supervising Physician Co-Signing Physician Notes I have personally seen, evaluated and examined the patient. I have also personally discussed the management of the patient with the resident physician/MARTHA and I agree with the exam findings documented in the history and physical examination and the documented assessment and plan unless otherwise stated below. Brief Exam: In general pleasant 73-year-old male was alert and orient x 3 at the time of my exam. He is coughing and wheezing at the time of my examination. He denies any sick contacts. Denies any recent COVID exposure to his knowledge. In addition he does admit to coughing when he eats solid food. But he does have a chronic cough. Will have speech therapy see him for completeness. He denies any long travel history. HEENT: Normocephalic atraumatic. Noted to be essentially edentulous Heart: Regular rate and rhythm I do not appreciate murmur or ectopy or rub. He is borderline tachycardic in the high 90s at the time of my examination. Lungs: Coarse bilaterally with diffuse rhonchi and expiratory wheezes. Rhonchi worse in the right lower lung mahmood compared to the other lung mahmood. Extremities: Intact with no significant edema whatsoever. Abdomen: Soft nontender positive bowel sounds. Neurologically: Intact no focal deficit on examination.. Assessment/plan: As discussed above. Aggressive pulmonary toilet including inhalers, steroids, remdesivir and azithromycin and Rocephin. Sputum cultures. We will do serial troponins given the history of cardiac disease. Will check a D-dimer given the COVID-19 and the hypoxia since this is a hypercoagulable state if D-dimer positive will do a CTA to rule out concomitant pulmonary emboli. Please refer to orders for further plan. Additional assessment: Acute hypoxemic respiratory failure secondary to acute on chronic lung pathology including chronic COPD with acute exacerbation, acute right lower lobe pneumonia, and acute COVID-19 infection. PG Care Time/CCT Total # of Minutes Spent Total Time Spent with Patient: Total time spent is greater than 50% in coordination of care (as documented) at patient's floor/unit and/or counseling patient: Coding Level of Care Code 33428 INT INP/OBS CARE 3/75MIN Diagnoses Pneumonia J18.9 Acute exacerbation of chronic obstructive pulmonary disease J44.1 COVID U07.1 Hypoxia R09.02 CAD (coronary artery disease) I25.10
[2024-05-18] MEDS: ASPIRIN CHEW 324 MG PO STA (10:41)
[2024-05-18] MEDS: REMDESIVIR 200 MG in SODIUM CHLORIDE 0.9% 210 ML IV STA (11:01)
[2024-05-18 11:11] LABS: D Dimer 430 ug/L FEU (0-500)
[2024-05-18] MEDS ORDERED: DOCUSATE SODIUM 100 MG CAP PO PRN (12:40)
[2024-05-18] MEDS ORDERED: ACETAMINOPHEN 325 MG TAB PO PRN (12:40)
[2024-05-18] MEDS: ALBUTEROL HFA 8 GM INHALER INH SCH (13:09)
[2024-05-18] MEDS: ENOXAPARIN INJ 40 MG/0.4 ML SYR SQ SCH (13:15)
--- NOTE | 2024-05-18 14:12 | Electrocardiogram Report ---
Test Reason : Blood Pressure : */* mmHG Vent. Rate : 93 BPM Atrial Rate : 93 BPM P-R Int : 148 ms QRS Dur : 84 ms QT Int : 340 ms P-R-T Axes : 94 80 74 degrees QTcB Int : 422 ms Normal sinus rhythm Normal ECG When compared with ECG of 06-Oct-2020 05:25, Criteria for Inferior infarct are no longer Present T wave inversion no longer evident in Inferior leads Confirmed by Floyd Jules ([id number]) on 05/18/2024 2:12:26 PM Referred By: REFERRED SELF Confirmed By: Floyd Jules
[2024-05-18] MEDS: guaiFENesin 600 MG TABCR PO SCH (20:10)
[2024-05-18] MEDS: lisinopril 5 MG TAB PO SCH (20:11)
[2024-05-18 20:35] LABS: Appearance Urine Clear (Clear); Bacteria Urine Automated None Seen (None Seen); Bilirubin Urine Negative (Negative); Blood Urine 1+ (Negative); Color Urine Dark Yellow; Epithelial Cell Urine Auto 0-2 /hpf (0-2); Glucose Urine UA Negative (Negative); Ketones Urine Trace (Negative); Leukocyte Esterase Urine Negative (Negative); Mucus Urine Present (None Prsent); Nitrite Urine Negative (Negative); Protein Urine 2+ (Negative); Specific Gravity Urine 1.038 (1.000-1.030); Urobilinogen Urine Negative (Negative); WBC Urine Automated 0-5 /hpf (0-5)
[2024-05-19 04:13] LABS: Basophils # (auto) 0.01 K/uL (0.00-0.20); Basophils % (auto) 0.1 %; Hematocrit (blood only) 41.4 % (42.0-52.0); Hemoglobin 13.7 g/dl (14.0-18.0); Immature Granulocytes # (auto) 0.02 K/uL (0.01-0.20); Immature Granulocytes % (auto) 0.3 %; Lymphocytes # (auto) 0.48 K/uL (1.20-3.40); Lymphocytes % (auto) 6.1 %; Mean Corpuscular Hemoglobin 31.6 pg (25.0-34.0); Mean Corpuscular Hgb Conc 33.1 g/dL (32.0-36.0); Mean Corpuscular Volume 95.6 fL (80.0-100.0); Mean Platelet Volume 10.8 fL (9.4-12.4); Monocytes # (auto) 0.59 K/uL (0.11-0.59); Monocytes % (auto) 7.5 %; Neutrophils # (auto) 6.76 K/uL (1.40-6.50); Platelet Count 129 K/uL (130-400); RDW Coefficient of Variation 12.7 % (11.5-14.5); RDW Standard Deviation 44.8 fL (36.4-46.3); Red Blood Count 4.33 M/uL (4.70-6.10); White Blood Count 7.86 K/ul (4.8-10.8)
[2024-05-19 04:23] LABS: BUN Creatinine Ratio 28.8 (10-20); Calcium 9.3 mg/dl (8.6-10.3); Creatinine Clr Calc Pharmacy 49.7 ml/min; Potassium 4.2 mmol/L (3.5-5.1)
[2024-05-19] MEDS: ATORVASTATIN 40 MG TAB PO SCH (07:59)
[2024-05-19] MEDS: AZITHROMYCIN 250 MG TAB PO SCH (07:59)
[2024-05-19] MEDS: METOPROLOL SUCC 50MG EXT REL TAB PO SCH (07:59)
[2024-05-19] MEDS: dexAMETHasone 6 MG in SYRINGE 0 ML IV SCH (07:59)
[2024-05-19] MEDS: UMECLIDINIUM/VILANTEROL 62.5/25MCG 7 PUFFS/INHALER INH SCH (08:01)
[2024-05-19] MEDS: cefTRIAXone SODIUM 2,000 MG/50 ML BAG IV SCH (08:04)
[2024-05-19] MEDS ORDERED: REMDESIVIR 100 MG in SODIUM CHLORIDE 0.9% 230 ML IV SCH (10:15)
--- NOTE | 2024-05-19 19:00 | Hospitalist Progress Note ---
Date of Service May 19, 2024 Assessment & Plan (1) Pneumonia: (2) Acute exacerbation of chronic obstructive pulmonary disease: (3) CAD (coronary artery disease): (4) HTN (hypertension): Plan Altagracia is a 73-year-old male with a past medical history of COPD, CAD s/p 2 stents, hypertension, ischemic cardiomyopathy and COPD. Presented for worsening shortness of breath x1 week. Is not on oxygen at home. Does has a 1ppd smoking hx. Also reports decreased appetite. He is being admitted for hypoxia secondary to pneumonia, non-COVID coronavirus , and COPD exacerbation. #Pneumonia/ COPD exacerbation/ Non Covid Coronavirus CXR showing right basilar airspace opacity suggestive of pneumonia and emphysema Biofire: Coronavirus OC43 (non-covid) Ddimer negative. Continue Rocephin + azithromycin . 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 Goal 90% #CAD/HTN STEMI s/p stent placement x 2 EKG showing NSR, no ischemic changes. Troponin peaked at 20.6 ASA ordered, pt stopped his plavix reason unclear Continue statin, lisinopril and metoprolol #Tobacco use Cessation encouraged Pt declined nicotine patch Dispo: continued inpatient stay, possible discharge tomorrow if able to wean off oxygen DVT proh: Lovenox Family updated at bedside 1/ Admission and Anticipated Discharge Date Admission Date: May 18, 2024 Supervising Physician Co-Signing Physician Notes Attending Attestation - Chart reviewed, care plan d/w JENNIFER Arizmendi. I agree w/ the lee components of her documentation. Kristian Dewey MD Subjective patient seen sitting up at the side of the bed eating lunch - reports that he does not feel short of breath currently but requiring oxygen and does not normally at home has been sick for over a week - has not stopped or decreased his smoking during that week reports "that smoking makes his breathing better" he is not interested in a nicotine patch Tele SR PAC/PVCs 50-80s Review of Systems Review of Systems: All systems reviewed & are unremarkable except as noted in Subjective Physical Exam Physical Exam: General: NAD, VS as above Resp: normal respiratory effort, lungs diminished in bases, no wheezing. 90-91% on 2L did not attempt to wean CV: RRR, no murmur, Abd: normal bowel sounds, non tender, no hepatosplenomegaly Extremities: Moves all extremities, no edema Neuro: A&O x3, Skin: intact, no lesions noted Results & Data Results & Data Vital Signs (Past 12 Hours) Vital Signs Temp Pulse Pulse Resp BP BP Pulse Ox 05/19/24 15:48 97.5 F L 69 18 104/63 92 05/19/24 15:41 80 18 92 05/19/24 14:03 70 05/19/24 11:34 97.7 F 65 18 95/50 L 92 05/19/24 10:16 05/19/24 10:14 88 17 92 05/19/24 08:05 97.5 F L 66 16 114/65 92 05/19/24 07:40 89 18 91 O2 Del Method O2 Flow Rate 05/19/24 15:48 Nasal Cannula 1 05/19/24 15:41 Nasal Cannula 1 05/19/24 14:03 05/19/24 11:34 Nasal Cannula 2 05/19/24 10:16 Nasal Cannula 2 05/19/24 10:14 Nasal Cannula 1 05/19/24 08:05 Nasal Cannula 2 05/19/24 07:40 Nasal Cannula 1 Laboratory Results cbc and chemistry reviewed Diagnostic Findings CXR reviewed PG Care Time/CCT Total # of Minutes Spent Total Time Spent with Patient: Total time spent is greater than 50% in coordination of care (as documented) at patient's floor/unit and/or counseling patient: Coding Level of Care Code 21855 SUB INP/OBS CARE 3/50MIN Diagnoses Pneumonia J18.9 Acute exacerbation of chronic obstructive pulmonary disease J44.1 CAD (coronary artery disease) I25.10 HTN (hypertension) I10
--- NOTE | 2024-05-20 12:32 | Discharge Summary ---
Discharge Summary Date of Service May 20, 2024 Principal Dx & Hospital Course #1 = Principal Diagnosis (1) Pneumonia: (2) Acute exacerbation of chronic obstructive pulmonary disease: (3) CAD (coronary artery disease): (4) HTN (hypertension): (5) Acute hypoxic respiratory failure: documented RRs of 26-28 at time of ER presentation along with documented O2 sats, in room air, of 84% 2-step ambulatory O2 test prior to discharge - 2 L NC O2 needed with ambulation (6) Chronic systolic CHF (congestive heart failure): EF 40-45% based on old echo done at [facility] Plan Altagracia is a 73-year-old male with a past medical history of COPD, CAD s/p 2 stents, hypertension, ischemic cardiomyopathy and COPD. Presented for worsening shortness of breath x1 week. Is not on oxygen at home. Does has a 1ppd smoking hx. Also reports decreased appetite. He is being admitted for hypoxia secondary to pneumonia, non-COVID coronavirus , and COPD exacerbation. #Pneumonia/ COPD exacerbation/ Non Covid Coronavirus CXR showing right basilar airspace opacity suggestive of pneumonia and emphysema Biofire: Coronavirus OC43 (non-covid) Shortness of breath was multifactoral given bacterial pneumonia, COPD D exacerbation and non-COVID coronavirus. His D-dimer was negative so no CTA was pursued. Aspiration was ruled out with a bedside [employer] OPERATOR eval He received ceftria xone and azithromycin as well as Decadron while inpatient. He was discharged on a continued course of cefpodoxime and azithromycin and Decadron taper. Patient continue to improve, but still having oxygen needs and anxious to return home. Was agreeable to home oxygen and this was arranged, RT recommending 3 L with activity. informed not to use oxygen while smoking. Encouraged to continue incentive spirometer flutter valve and Mucinex. #CAD/HTN STEMI s/p stent placement x 2 Patient did have a few episodes of chest pain while admitted. EKGs and troponin were reassuring. Suspect this was related to his chronic underlying coronary artery disease and stents As well as underlying lung conditions as above. Patient has self stopped his Plavix and we recommended continuing his aspirin. No changes to home medication of statin lisinopril or metoprolol. #Tobacco use Cessation encouraged Pt declined nicotine patch Dispo: Discharge to home today with home oxygen Family updated at bedside 1/3 Notes For Next Care Provider home oxygen supplied through Medicare insuranceif continues to be a long-term he will likely had to be converted through the supplier that the [facility] uses Medication Changes From Visit cefpodoxime and azithromycin to complete antibiotic course Decadron taper Admission HPI Per Admitting Provider Patient is a 73-year-old male with past medical history of CAD s/p stent x 2, hypertension, ischemic cardiomyopathy, COPD. the patient presents for worsening shortness of breath x 1 week along with intermittent chest pain. The patient stated he has chronic shortness of breath but it has been acutely worsened both at rest and on exertion. He also has a chronic cough with white sputum production, acutely worsened. He has chronic rhinorrhea, unchanged. Along with chronic diarrhea, unchanged. He has also had an extremely decreased appetite for the past week and feels as though he is lost 10 pounds. He stated that the chest pain is achy, sometimes sharp, lasts for about a minute and has been occurring more often for the past 2 weeks. It is on the left side sometimes the right. It also occurs at rest. It feels different than when he had a STEMI in 2020, when he had a STEMI he had extremely sharp chest pain that woke him up at 2 AM. EKG showing NSR in ED, troponin essentially negative; will trend joaquina chavarria order stat aspirin. He stated he does often choke on his food, concern for aspiration pneumonia; Speech consulted. He stated he has not traveled recently but with hypoxia and hypercoagulable state with COVID, will order D- dimer. Patient denies fever, chills, headache, dizziness, lightheadedness, sore throat, abdominal pain, nausea, vomiting. He does have an extensive smoking history, 1 pack/day for his entire life. Denies alcohol use. No history of DM or CA. Does not use oxygen at baseline. Took his home medications this morning. Wishes to be full code. In the ED the patient was given a DuoNeb treatment, Rocephin, Zithromax, Solu- Medrol. His chest x-ray showed right basilar airspace opacity suggestive of pneumonia along with emphysema. This BioFire also showed COVID. Patient's updated at bedside. Discharge Exam General: NAD, VS as above Resp: normal respiratory effort, lungs diminished in bases, no wheezing. 90-91% on 2L did not attempt to wean CV: RRR, no murmur, Abd: normal bowel sounds, non tender, no hepatosplenomegaly Extremities: Moves all extremities, no edema Neuro: A&O x3, Skin: intact, no lesions noted Discharge Plan Discharge Items Patient Disposition: Home - Self-Care Reason For Visit: LOW OX/80 THEN GOES UP 88, CHEST PAINS/COMES GOES Discharge Diagnosis: non covid coronavirus, COPD exacerbation Activity: Resume your previous activity Weightbearing: Full weightbearing Non-emergency contact: Primary Care Provider Call non-emergency contact if: you have any medication questions, your symptoms worsen and your temperature is above 101 Follow-up/Referrals: [facility],Hospital [Primary Care Provider] - (Please see your PCP within 1 week) Diet: Heart Healthy Addtl Attending Provider Instructions: Mr. Burroughs, You were hospitalized after having worsening shortness of breath this was found to be due to pneumonia and a non-COVID coronavirus and a COPD exacerbation. You have improved with IV steroids and IV antibiotics. You will be discharged on oral versions of both of these - both of them to start a.m. 05/23. please follow the instructions on the bottle and take the complete course of your medications. You should continue supportive care with Mucinex using a plastic breathing machines until you feel better. I have sent in a prescription for the Mucinex however this is an [id number] medication, if your insurance will not pay for this please purchase it [id number]. You should be using 2L of oxygen with ambulation. We want your oxygen saturations to be greater than 90%. Recommend getting a finger pulse oximeter from the pharmacy if you do not have 1 at home. Hopefully you will not need this oxygen long-term. Anything you can do to cut back on smoking is going to help your overall lung health. Please do not smoke while you are wearing oxygen. I have sent in a new rescue inhaler if needed for shortness of breath or wheezing. You had a few episodes of chest pain while you are in the hospitalyour heart enzymes and EKGs were all unremarkable. You should continue your medications you take for your history of a heart attack and hypertension. Activity: You can do normal everyday activities as your body allows. Take rest breaks if you feel tired. Do not overexert. Stop activity if you have pain, shortness of breath or feel dizzy. Follow-up appointments: Make an appointment with your primary care physician within one week of discharge. A copy of this summary will be sent to them. Every time you see your primary care physician, or any other doctor, bring your medication list, and a list of questions. CONTACT YOUR PRIMARY CARE PROVIDER if you experience any of the following: Shortness of breath or difficulty breathing Fevers or chills Feeling tired with normal activity or experiencing dizziness or fainting Difficulty following your treatment plan, or difficulty taking medications - oxygen saturations 88% or below CALL 911 OR GO TO THE EMERGENCY DEPARTMENT if you experience any of the following: Severe abdominal pain or nausea/vomiting Severe chest pain, or chest pain that radiates (moves) to your jaw or arm Sudden, severe shortness of breath or difficulty breathing Thank you for allowing us to participate in your care. Pending Studies at Discharge: No Stand-Alone Forms: My [facility] [place], Smoking Cessation Medications and DC Order Prescriptions: New albuterol sulfate [Ventolin HFA] 90 mcg/actuation Hfa Aerosol Inhaler 2 puff inhalation Q6H PRN (Reason: shortness of breath or wheezing) Qty: 6.7 0RF guaifenesin [Mucinex] 600 mg Tablet Extended Release 12hr 1,200 mg PO Q12 Qty: 10 0RF cefpodoxime 200 mg tablet 200 mg PO BID Qty: 10 0RF Rx Instructions: must administer with a meal/food dexamethasone 2 mg tablet See Taper PO DAILY Qty: 9 0RF Taper: Taper, Blank 4 mg DAILY for 3 Days 2 mg DAILY for 3 Days Continued lisinopril [Zestril] 5 mg tablet 5 mg PO QPM 30 Days Qty: 30 11RF atorvastatin 80 mg tablet 80 mg PO QAM metoprolol succinate [Toprol XL] 50 mg tablet extended release 24 hr 50 mg PO QAM Stiolto Respimat 2.5-2.5 mcg/actuation Mist 2 puff INHALATION DAILY aspirin 81 mg Tablet,Chewable 81 mg PO DAILY folic acid 1 mg Tablet 1 mg PO DAILY Held clopidogrel [Plavix] 75 mg tablet 75 mg PO QAM Hold Instructions: Provider's Order - patient states he stopped this but history of stent placement please discuss with film examiner/PCP Discontinued albuterol sulfate 200 mcg Capsule, W/Inhalation Device 200 mcg INHALATION DAILY Discharge Orders: Discharge Order (Routine); Ordered 05/22/24 Ordered By: Audelia Rahman/Other Patient Handouts: COPD Quit Smoking, Oxygen Supplemental Admission Data Admit Date/Time: 05/18/24 10:30 Attending Provider: Norbert Penny Admit Provider: Joe Moseley Primary Care Provider: [facility] Other Providers: Joe Moseley Other Interventions: Discharge Summary Assessment (RN) Last Done: 05/22/24 12:50 Hospital Stay Data Consultations 05/18/24 10:00 ED Decision to Admit Stat Diagnostic Imagining Performed Chest X-Ray 05/18/24 08:03 XR chest 1V portable CLINICAL HISTORY: Dyspnea. COMPARISON STUDY: Chest CT October 06, 2020. Chest radiograph May 07, 2022. FINDINGS: Bilateral shoulder arthroplasties are incidentally noted. Lung hyperexpansion with underlying emphysema is present. Right basilar airspace opacity is present. Left lung is clear. Pulmonary vascularity is normal. Cardiomediastinal silhouette is stable. IMPRESSION: 1. Right basilar airspace opacity suggestive of pneumonia. Post treatment radiographs to ensure resolution are recommended. 2. Emphysema. ACT 112: Negative or not required by law. Electronically signed by: Silvio Duenas M.D. 05/18/2024 8:33 AM Pending Results Patient Have Any Pending Studies at Discharge: No Discharge Instructions Given to Patient (Per Discharging Provider) Mr. Burroughs, Fabien were hospitalized after having worsening shortness of breath this was found to be due to pneumonia and a non-COVID coronavirus and a COPD exacerbation. You have improved with IV steroids and IV antibiotics. You will be discharged on oral versions of both of these - both of them to start a.m. 7. please follow the instructions on the bottle and take the complete course of your medications. You should continue supportive care with Mucinex using a plastic breathing machines until you feel better. I have sent in a prescription for the Mucinex however this is an [id number] medication, if your insurance will not pay for this please purchase it [id number]. You should be using 2L of oxygen with ambulation. We want your oxygen saturations to be greater than 90%. Recommend getting a finger pulse oximeter from the pharmacy if you do not have 1 at home. Hopefully you will not need this oxygen long-term. Anything you can do to cut back on smoking is going to help your overall lung health. Please do not smoke while you are wearing oxygen. I have sent in a new rescue inhaler if needed for shortness of breath or wheezing. You had a few episodes of chest pain while you are in the hospitalyour heart enzymes and EKGs were all unremarkable. You should continue your medications you take for your history of a heart attack and hypertension. Activity: You can do normal everyday activities as your body allows. Take rest breaks if you feel tired. Do not overexert. Stop activity if you have pain, shortness of breath or feel dizzy. Follow-up appointments: Make an appointment with your primary care physician within one week of discharge. A copy of this summary will be sent to them. Every time you see your primary care physician, or any other doctor, bring your medication list, and a list of questions. CONTACT YOUR PRIMARY CARE PROVIDER if you experience any of the following: Shortness of breath or difficulty breathing Fevers or chills Feeling tired with normal activity or experiencing dizziness or fainting Difficulty following your treatment plan, or difficulty taking medications - oxygen saturations 88% or below CALL 911 OR GO TO THE EMERGENCY DEPARTMENT if you experience any of the following: Severe abdominal pain or nausea/vomiting Severe chest pain, or chest pain that radiates (moves) to your jaw or arm Sudden, severe shortness of breath or difficulty breathing Thank you for allowing us to participate in your care. Supervising Physician Co-Signing Physician Notes Attending Attestation and Discharge Note: Chart reviewed, discharge care plan d/w JENNIFER Arizmendi. I agree w/ the lee components of her discharge documentation with the following additions - * acute hypoxic respiratory failure * chronic systolic CHF Of note - I did not perform a bedside visit or physical exam on day of discharge. 73yo male with ongoing tobacco use, CAD, COPD, chronic systolic CHF 2nd to ischemic cardiomyopathy, hyperlipidemia. Presented with acute hypoxic resp failure 2nd to non-COVID coronavirus infection as well as likely complicating bacterial pneumonia of the RLL. Treated with steroids, abx, O2, supportive care. Transitioned to PO steroids/abx at d/c. 2-step ambulatory o2 test showed need for home o2 - 2 L NC o2 with ambulation. Counseled to quit smoking. Counseled on risks of fire with smoking & o2 use. Should have repeat CXR in 6-8 weeks to ensure full radiographic resolution of the RLL pneumonia. Kristian Dewey MD Total Time Total Time Spent Total Time Spent (In Minutes): Time spent day of discharge 35 minutes including direct patient care, medication reconciliation, documentation, review of labs and images, and coordination of care. Coding Level of Care Code 01534 INP/OBS DISCH >30 MIN Diagnoses Pneumonia J18.9 Acute exacerbation of chronic obstructive pulmonary disease J44.1 CAD (coronary artery disease) I25.10 HTN (hypertension) I10 Acute hypoxic respiratory failure J96.01 Chronic systolic CHF (congestive heart failure) I50.22
--- NOTE | 2024-05-20 17:08 | Communication Note ---
Date of Service: May 20, 2024 Discharged cancelled as [facility] cannot be arranged by [facility] over the weekend. As of now, pt will have to remain inpatient until Wednesday.
--- NOTE | 2024-05-21 12:02 | Hospitalist Progress Note ---
Date of Service May 21, 2024 Assessment & Plan (1) Pneumonia: (2) Acute exacerbation of chronic obstructive pulmonary disease: (3) CAD (coronary artery disease): (4) HTN (hypertension): Plan Altagracia is a 73-year-old male with a past medical history of COPD, CAD s/p 2 stents, hypertension, ischemic cardiomyopathy and COPD. Presented for worsening shortness of breath x1 week. Is not on oxygen at home. Does has a 1ppd smoking hx. Also reports decreased appetite. He is being admitted for hypoxia secondary to pneumonia, non-COVID coronavirus , and COPD exacerbation. #Pneumonia/ COPD exacerbation/ Non Covid Coronavirus CXR showing right basilar airspace opacity suggestive of pneumonia and emphysema Biofire: Coronavirus OC43 (non-covid) Shortness of breath was multifactoral given bacterial pneumonia, COPD D exacerbation and non-COVID coronavirus. His D-dimer was negative so no CTA was pursued. Aspiration was ruled out with a bedside [employer] SEWER eval He received ceftriaxone and azithromycin as well as Decadron while inpatient. Patient was planned for discharge yesterday but unable to because his home oxygen could not be arranged. He will remain inpatient today, continuing ceftriaxone azithromycin and Decadron and have repeat two-step tomorrow morning which is already ordered and oxygen to be arranged for discharge tomorrow #CAD/HTN STEMI s/p stent placement x 2 Patient did have a few episodes of chest pain while admitted. EKGs and troponin were reassuring. Suspect this was related to his chronic underlying coronary artery disease and stents As well as underlying lung conditions as above. Patient has self stopped his Plavix and we recommended continuing his aspirin. No changes to home medication of statin lisinopril or metoprolol. #Tobacco use Cessation encouraged Pt declined nicotine patch Dispo: continued inpatient stay hopeful for discharge tomorrow Family updated at bedside /3 Admission and Anticipated Discharge Date Admission Date: May 18, 2024 Supervising Physician Co-Signing Physician Notes Attending Attestation - Chart reviewed, care plan d/w JENNIFER Arizmendi. I agree w/ the lee components of her documentation. Kristian Dewey MD Subjective patient seen lying in bed. Reports feeling okay Eager to go home but understanding of the situation cough is mainly in the morning he reports Appetite is okay moving around the room with mild shortness of breath Review of Systems Review of Systems: All systems reviewed & are unremarkable except as noted in Subjective Physical Exam Physical Exam: General: NAD, VS as above Resp: normal respiratory effort, lungs diminished in bases, positive rhonchi, no wheezing.on 2L did not attempt to wean CV: RRR, no murmur, Abd: normal bowel sounds, non tender, no hepatosplenomegaly Extremities: Moves all extremities, no edema Neuro: A&O x3, Skin: intact, no lesions noted Results & Data Results & Data Vital Signs (Past 12 Hours) Vital Signs Temp Pulse Pulse Resp BP Pulse Ox O2 Del Method 05/21/24 11:31 97.7 F 62 16 107/57 L 94 Nasal Cannula 05/21/24 07:59 63 18 94 Nasal Cannula 05/21/24 07:39 97.7 F 63 16 98/59 L 93 Nasal Cannula 05/21/24 07:16 Nasal Cannula 05/21/24 07:03 53 L 05/21/24 02:40 97.5 F L 65 14 109/57 L 95 Nasal Cannula O2 Flow Rate 05/21/24 11:31 3 05/21/24 07:59 3 05/21/24 07:39 3 05/21/24 07:16 2 05/21/24 07:03 05/21/24 02:40 3 PG Care Time/CCT Total # of Minutes Spent Total Time Spent with Patient: Total time spent is greater than 50% in coordination of care (as documented) at patient's floor/unit and/or counseling patient: Coding Level of Care Code 25894 SUB INP/OBS CARE 2/35MIN Diagnoses Pneumonia J18.9 Acute exacerbation of chronic obstructive pulmonary disease J44.1 CAD (coronary artery disease) I25.10 HTN (hypertension) I10
[2024-05-21] MEDS: ALBUTEROL HFA 8 GM INHALER INH SCH (20:07)
[2024-05-22 11:36] VITALS: RESP 16; O2SAT 94
--- NOTE | 2024-05-22 12:23 | Discharge Summary ---
Discharge Summary Date of Service May 22, 2024 Principal Dx & Hospital Course #1 = Principal Diagnosis (1) Pneumonia: (2) Acute exacerbation of chronic obstructive pulmonary disease: (3) CAD (coronary artery disease): (4) HTN (hypertension): William Frias is a 73-year-old male with a past medical history of COPD, CAD s/p 2 stents, hypertension, ischemic cardiomyopathy and COPD. Presented for worsening shortness of breath x1 week. Is not on oxygen at home. Does has a 1ppd smoking hx. Also reports decreased appetite. He is being admitted for hypoxia secondary to pneumonia, non-COVID coronavirus , and COPD exacerbation. #Pneumonia/ COPD exacerbation/ Non Covid Coronavirus CXR showing right basilar airspace opacity suggestive of pneumonia and emphysema Biofire: Coronavirus OC43 (non-covid) Shortness of breath was multifactoral given bacterial pneumonia, COPD exacerbation and non-COVID coronavirus. His D-dimer was negative so no CTA was pursued. 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 2 step completed and patient requires 2L of oxygen with ambulation on discharge. #CAD/HTN STEMI s/p stent placement x 2 Patient did have a few episodes of chest pain while admitted. EKGs and troponin were reassuring. Suspect this was related to his chronic underlying coronary artery disease and stents As well as underlying lung conditions as above. Patient has self stopped his Plavix and we recommended continuing his aspirin. No changes to home medication of statin lisinopril or metoprolol. #Tobacco use Cessation encouraged Pt declined nicotine patch Patient discharged to home 05/22. Admission HPI Per Admitting Provider Patient is a 73-year-old male with past medical history of CAD s/p stent x 2, hypertension, ischemic cardiomyopathy, COPD. the patient presents for worsening shortness of breath x 1 week along with intermittent chest pain. The patient stated he has chronic shortness of breath but it has been acutely worsened both at rest and on exertion. He also has a chronic cough with white sputum production, acutely worsened. He has chronic rhinorrhea, unchanged. Along with chronic diarrhea, unchanged. He has also had an extremely decreased appetite for the past week and feels as though he is lost 10 pounds. He stated that the chest pain is achy, sometimes sharp, lasts for about a minute and has been occurring more often for the past 2 weeks. It is on the left side sometimes the right. It also occurs at rest. It feels different than when he had a STEMI in 2020, when he had a STEMI he had extremely sharp chest pain that woke him up at 2 AM. EKG showing NSR in ED, troponin essentially negative; will trend troponin order stat aspirin. He stated he does often choke on his food, concern for aspiration pneumonia; Speech consulted. He stated he has not traveled recently but with hypoxia and hypercoagulable state with COVID, will order D- dimer. Patient denies fever, chills, headache, dizziness, lightheadedness, sore throat, abdominal pain, nausea, vomiting. He does have an extensive smoking history, 1 pack/day for his entire life. Denies alcohol use. No history of DM or CA. Does not use oxygen at baseline. Took his home medications this morning. Wishes to be full code. In the ED the patient was given a DuoNeb treatment, Rocephin, Zithromax, Solu- Medrol. His chest x-ray showed right basilar airspace opacity suggestive of pneumonia along with emphysema. This BioFire also showed COVID. Patient's updated at bedside. Discharge Exam Constitutional WD/WN, vitals as above Eyes PERRL, conjunctivae normal, anicteric sclerae Psychiatric A+Ox3, euthymic affect Discharge Plan Discharge Items Patient Disposition: Home - Self-Care Reason For Visit: LOW OX/80 THEN GOES UP 88, CHEST PAINS/COMES GOES Discharge Diagnosis: non covid coronavirus, COPD exacerbation Activity: Resume your previous activity Weightbearing: Full weightbearing Non-emergency contact: Primary Care Provider Call non-emergency contact if: you have any medication questions, your symptoms worsen and your temperature is above 101 Follow-up/Referrals: [facility]ospital [Primary Care Provider] - (Please see your PCP within 1 week) Diet: Heart Healthy Addtl Attending Provider Instructions: Mr. Burroughs, You were hospitalized after having worsening shortness of breath this was found to be due to pneumonia and a non-COVID coronavirus and a COPD exacerbation. You have improved with IV steroids and IV antibiotics. You will be discharged on oral versions of both of these - both of them to start a.m. /7. please follow the instructions on the bottle and take the complete course of your medications. You should continue supportive care with Mucinex using a plastic breathing machines until you feel better. I have sent in a prescription for the Mucinex however this is an [id number] medication, if your insurance will not pay for this please purchase it [id number]. You should be using 2L of oxygen with ambulation. We want your oxygen saturations to be greater than 90%. Recommend getting a finger pulse oximeter from the pharmacy if you do not have 1 at home. Hopefully you will not need this oxygen long-term. Anything you can do to cut back on smoking is going to help your overall lung health. Please do not smoke while you are wearing oxygen. I have sent in a new rescue inhaler if needed for shortness of breath or wheezi ng. You had a few episodes of chest pain while you are in the hospitalyour heart enzymes and EKGs were all unremarkable. You should continue your medications you take for your history of a heart attack and hypertension. Activity: You can do normal everyday activities as your body allows. Take rest breaks if you feel tired. Do not overexert. Stop activity if you have pain, shortness of breath or feel dizzy. Follow-up appointments: Make an appointment with your primary care physician within one week of discharge. A copy of this summary will be sent to them. Every time you see your primary care physician, or any other doctor, bring your medication list, and a list of questions. CONTACT YOUR PRIMARY CARE PROVIDER if you experience any of the following: Shortness of breath or difficulty breathing Fevers or chills Feeling tired with normal activity or experiencing dizziness or fainting Difficulty following your treatment plan, or difficulty taking medications - oxygen saturations 88% or below CALL 911 OR GO TO THE EMERGENCY DEPARTMENT if you experience any of the following: Severe abdominal pain or nausea/vomiting Severe chest pain, or chest pain that radiates (moves) to your jaw or arm Sudden, severe shortness of breath or difficulty breathing Thank you for allowing us to participate in your care. Pending Studies at Discharge: No Stand-Alone Forms: My [facility] [employer], Smoking Cessation Medications and DC Order Prescriptions: New albuterol sulfate [Ventolin HFA] 90 mcg/actuation Hfa Aerosol Inhaler 2 puff inhalation Q6H PRN (Reason: shortness of breath or wheezing) Qty: 6.7 0RF guaifenesin [Mucinex] 600 mg Tablet Extended Release 12hr 1,200 mg PO Q12 Qty: 10 0RF cefpodoxime 200 mg tablet 200 mg PO BID Qty: 10 0RF Rx Instructions: must administer with a meal/food dexamethasone 2 mg tablet See Taper PO DAILY Qty: 9 0RF Taper: Taper, Blank 4 mg DAILY for 3 Days 2 mg DAILY for 3 Days Continued lisinopril [Zestril] 5 mg tablet 5 mg PO QPM 30 Days Qty: 30 11RF atorvastatin 80 mg tablet 80 mg PO QAM metoprolol succinate [Toprol XL] 50 mg tablet extended release 24 hr 50 mg PO QAM Stiolto Respimat 2.5-2.5 mcg/actuation Mist 2 puff INHALATION DAILY aspirin 81 mg Tablet,Chewable 81 mg PO DAILY folic acid 1 mg Tablet 1 mg PO DAILY Held clopidogrel [Plavix] 75 mg tablet 75 mg PO QAM Hold Instructions: Provider's Order - patient states he stopped this but history of stent placement please discuss with [facility]igo vat tender cloth/PCP Discontinued albuterol sulfate 200 mcg Capsule, W/Inhalation Device 200 mcg INHALATION DAILY Discharge Orders: Discharge Order (Routine); Ordered 05/22/24 Ordered By: Audelia Rahman/Other Patient Handouts: COPD Quit Smoking, Oxygen Supplemental Admission Data Admit Date/Time: 05/18/24 10:30 Attending Provider: Norbert Penny Admit Provider: Joe Moseley Primary Care Provider: [facility] Other Providers: Joe Moseley Other Interventions: Discharge Summary Assessment (RN) Last Done: 05/20/24 12:50 Hospital Stay Data Consultations 05/18/24 10:00 ED Decision to Admit Stat Pending Results Patient Have Any Pending Studies at Discharge: No Discharge Instructions Given to Patient (Per Discharging Provider) Mr. Burroughs, You were hospitalized after having worsening shortness of breath this was found to be due to pneumonia and a non-COVID coronavirus and a COPD exacerbation. You have improved with IV steroids and IV antibiotics. You will be discharged o n oral versions of both of these - both of them to start a.m. 1/7. please follow the instructions on the bottle and take the complete course of your medications. You should continue supportive care with Mucinex using a plastic breathing machines until you feel better. I have sent in a prescription for the Mucinex however this is an [id number] medication, if your insurance will not pay for this please purchase it [id number]. You should be using 2L of oxygen with ambulation. We want your oxygen saturations to be greater than 90%. Recommend getting a finger pulse oximeter from the pharmacy if you do not have 1 at home. Hopefully you will not need this oxygen long-term. Anything you can do to cut back on smoking is going to help your overall lung health. Please do not smoke while you are wearing oxygen. I have sent in a new rescue inhaler if needed for shortness of breath or wheezing. You had a few episodes of chest pain while you are in the hospitalyour heart enzymes and EKGs were all unremarkable. You should continue your medications you take for your history of a heart attack and hypertension. Activity: You can do normal everyday activities as your body allows. Take rest breaks if you feel tired. Do not overexert. Stop activity if you have pain, shortness of breath or feel dizzy. Follow-up appointments: Make an appointment with your primary care physician within one week of discharge. A copy of this summary will be sent to them. Every time you see your primary care physician, or any other doctor, bring your medication list, and a list of questions. CONTACT YOUR PRIMARY CARE PROVIDER if you experience any of the following: Shortness of breath or difficulty breathing Fevers or chills Feeling tired with normal activity or experiencing dizziness or fainting Difficulty following your treatment plan, or difficulty taking medications - oxygen saturations 88% or below CALL 911 OR GO TO THE EMERGENCY DEPARTMENT if you experience any of the following: Severe abdominal pain or nausea/vomiting Severe chest pain, or chest pain that radiates (moves) to your jaw or arm Sudden, severe shortness of breath or difficulty breathing Thank you for allowing us to participate in your care. Total Time Total Time Spent Total Time Spent (In Minutes): 45 Total Time Includes: Examination of the Patient, Discharge Planning, Medication Reconciliation and Communication With Other Providers Coding Level of Care Code 92323 INP/OBS DISCH >30 MIN Diagnoses Pneumonia J18.9 Acute exacerbation of chronic obstructive pulmonary disease J44.1 CAD (coronary artery disease) I25.10 HTN (hypertension) I10
--- NOTE | 2024-05-22 15:14 | Electrocardiogram Report ---
Test Reason : Blood Pressure : */* mmHG Vent. Rate : 52 BPM Atrial Rate : 52 BPM P-R Int : 152 ms QRS Dur : 84 ms QT Int : 416 ms P-R-T Axes : 85 80 80 degrees QTcB Int : 386 ms Poor data quality, interpretation may be adversely affected Sinus bradycardia Otherwise normal ECG When compared with ECG of 18-May-2024 08:12, Vent. rate has decreased by 41 bpm Confirmed by Israel Bentley ([id number]) on 05/22/2024 3:14:28 PM Referred By: REFERRED SELF Confirmed By: Israel Bentley
[2024-05-22 15:54] VITALS: BP 144/74; PULSE 71; TEMP 97.7
== END 2024-05-22 16:49 | disposition home or self-care (01) | DRG 193 ==
LOC: ED 07:54 → EDINP 10:30 → SUATTDRO 10:30 → 2W 12:41
DX: J18.9 Pneumonia, unspecified organism; I25.5 Ischemic cardiomyopathy; E78.5 Hyperlipidemia, unspecified; J44.1 Chronic obstructive pulmonary disease with (acute) exacerbation; Z79.51 Long term (current) use of inhaled steroids; I10 Essential (primary) hypertension; B97.29 Other coronavirus as the cause of diseases classified elsewhere; Z88.8 Allergy status to other drugs, medicaments and biological substances; Z79.899 Other long term (current) drug therapy; Z95.5 Presence of coronary angioplasty implant and graft; J96.01 Acute respiratory failure with hypoxia; F17.210 Nicotine dependence, cigarettes, uncomplicated; I25.10 Atherosclerotic heart disease of native coronary artery without angina pectoris; Z79.02 Long term (current) use of antithrombotics/antiplatelets; I25.2 Old myocardial infarction

== ENCOUNTER 2025-01-17 22:03 | Inpatient (IN) ==
--- NOTE | 2025-01-17 22:27 | Emergency Department Note ---
Impression & Plan Closed pelvic fracture Admission ED Provider Note HPI: History obtained from patient. The patient is a 74-year-old gentleman with history of CAD, currently on aspirin daily, presents to the emergency department with a chief complaint of pain in the right hip and right buttocks after a fall 3 days ago. Patient states he was trying to walk up into his camper when he fell off of a step about 3 feet of height. He states he fell backwards onto his right buttocks. Patient tells me he does not believe he hit his head when he fell. Patient says of increasing pain in the area of his right hip and right buttock since his fall and therefore came to the ER tonight to be assessed. ROS: - Per HPI Differential Diagnosis: Hip fracture, pelvic fracture, lumbar spine fracture, intracranial injury to include subdural hematoma, rib fractures, pneumothorax, hemothorax, amongst other potential pathologies. *Outpatient medications and allergy history reviewed. PE: General: Alert, frail-appearing, no acute distress HEENT: Normocephalic, trachea midline Eyes: Extraocular eye movement is intact, no scleral erythema Pulmonary: Clear to auscultation bilaterally, no wheezing Cardio: Regular rate and rhythm GI: Abdomen is soft to palpation : No suprapubic tenderness MSK: Limited range of motion at the right hip secondary to pain in the right thigh and posterior right buttocks, otherwise no evidence of trauma or malformation of the extremities, no edema Skin: No evidence of rash Neuro: Alert, no focal deficits Psychiatric: Cooperative INDEPENDENT INTERPRETATIONS: air sampling and monitoring: (As interpreted by myself): - An order was placed for continuous cardiac monitoring - Patient was noted to be in sinus rhythm with a rate of 85 Chest x-ray: As interpreted by myself - No focal infiltrate, no pneumothorax or hemothorax Interventions provided in ED: - IV fluid bolus, IV morphine, IV Zofran Medical Decision Making: IV was established and lab work obtained, patient was placed on case monitor. Lab work shows no leukocytosis, hemoglobin is stable 11.5, platelet count is slightly low at 126, CMP does not show any evidence of any critical findings. X-ray imaging of the hips/pelvis does not show any evidence of any obvious fracture. X-ray imaging of the chest does not show any evidence of any acute traumatic findings per my interpretation. CT of the head did not show any evidence of any acute intracranial hemorrhage, there was suggestion of a dural based mass 1.1 cm with some rounding edema arising from the left parietal falx per the interpreting radiologist, Dr. Maldonado. This mass was otherwise not characterized further in the interpretation therefore I did discuss this finding over the phone with Dr. Maldonado. He stated to me over the phone that this mass appeared to be most consistent with likely a benign meningioma. Otherwise there is no evidence of any traumatic findings, no evidence of any acute intracranial hemorrhage. On my reevaluation, the patient stated he was still having too much pain in the area of his right posterior buttocks and right hip area to ambulate, he was able to flex more at the right hip on my reevaluation but he stated he did not feel that he could walk. Given this I did obtain CT imaging of the right hip for further assessment, on CT imaging there is evidence of nondisplaced fracture of the superior and inferior pubic rami with some extension to the acetabular wall. Given this, I do feel the patient will require admission for PT/OT and orthopedic consultation for further care. Patient and his are in agreement. Routine consultation was placed for orthopedics, I then discussed the patient's case with the on-call hospitalist, Dr. Quiroz, and the patient was accepted for inpatient care. Consultants/Discussions held with other healthcare providers: - Hospitalist, Dr. Quiroz Disposition discussion held by myself with: - Patient and patient's at the bedside Diagnosis: 1. Closed pelvic fracture, acute, right sided pubic rami 2. Ambulatory dysfunction, acute 3. Mechanical fall, acute 4. Meningioma on CT imaging, acute Disposition: Admission Curt Hand DO Emergency Medicine Past Med/Surg History Problem List (Updated 01/18/25 @ 01:58 by Curt Hand DO) Closed pelvic fracture (Acute) Urinary retention BPH NOS w ur obs/LUTS Chronic systolic CHF (congestive heart failure) Acute hypoxic respiratory failure Right rotator cuff tear arthropathy No pertinent past surgical history Acute ST elevation myocardial infarction (STEMI) of inferior wall Cigarette smoker Encounter for pre-operative examination Left rotator cuff tear arthropathy Hypoxia (Acute) Status post reverse arthroplasty of left shoulder 10/03/20 LMA#5 + PNB. Hyperlipemia S/P PTCA (percutaneous transluminal coronary angioplasty) S/P drug eluting coronary stent placement COPD (chronic obstructive pulmonary disease) (Acute) controlled, stable per pt Medical History History of AK (myocardial infarction) 02/2020 (treated at [facility]) s/p MARIA GUADALUPE x2, Cx and RCA. Completed at-home cardiac [facility]. [facility] [place] [facility] . Ischemic cardiomyopathy EF 40-45% on echo 02/22/20. HTN (hypertension) controlled, stable per pt Admitted to intensive care unit Surgical History History of tooth extraction History of surgical amputation of finger History of repair of right rotator cuff History of colonoscopy History of cardiac catheterization s/p STEMI with MARIA GUADALUPE x 2 02/23/20 Cx and RCA; LM -medium caliber, angiographically normal LAD -medium caliber vessel, proximal luminal irregularities, 20 to 30% mid stenosis at takeoff of second diagonal. Distal luminal regularities 60% apex. Medium caliber second diagonal without significant disease. Circumflex -medium caliber, 70% mid segment stenosis. Medium caliber OM 2 without significant disease RCA -dominant, calcified, 30 to 40% proximal, diffuse 40%/ectatic disease in the midsegment prior to 100% latemid 100% acute on chronic occlusion. Distal vessel partially fills via [id number] collaterals. Family History Other No family history of adverse response to anesthesia No pertinent family history Social History Smoking Status: Current every day smoker Tobacco Type: Cigarettes Cigarettes Per Day: 10 per day- advised; Second Hand Exposure: Yes; Do You Dip or Chew Tobacco: No; Hx Alcohol Use: No Hx Substance Use: No Preferred Language: Mongolian Communication Ability: Effective Visual Impairment: No Limitations Hearing Ability: Normal Rn Orthopaedic Required: No Beliefs That Will Affect Care: None marital status: marital status details: Current Living Situation: Spouse current occupational status: retired Feels Safe at Home: Yes Assistive Devices: Cane and Walker Allergies Allergies Allergy/AdvReac Type Severity Reaction Status Date / Time clopidogrel [From Plavix] AdvReac Severe SHORT OF Verified 06/16/24 08:58 BREATH PER PT. Home Meds Home Medications Medication Instructions Recorded Confirmed atorvastatin 80 mg tablet 80 mg PO QAM 07/18/20 06/16/24 metoprolol succinate 50 mg 50 mg PO QAM 07/18/20 01/18/25 tablet,extended release 24 hr (Toprol XL) clopidogrel 75 mg tablet (Plavix) 75 mg PO QAM 05/05/22 06/16/24 tiotropium 2.5 mcg-olodaterol 2.5 2 puff inhalation DAILY 05/21/22 06/16/24 mcg/actuation mist for inhalation (Stiolto Respimat) aspirin 81 mg chewable tablet 81 mg PO DAILY 05/18/24 06/16/24 folic acid 1 mg tablet 1 mg PO DAILY 05/18/24 06/16/24 albuterol sulfate 90 mcg/actuation 2 puff inhalation QID PRN 01/18/25 01/18/25 aerosol inhaler (Ventolin HFA) shortness of breath or wheezing rosuvastatin 40 mg tablet 40 mg PO HS 01/18/25 01/18/25 Previous Rx's Medication Instructions Recorded lisinopril 5 mg tablet (Zestril) 5 mg PO QPM 30 days #30 tabs 03/07/20 dexamethasone 2 mg tablet See Taper PO DAILY #9 tabs 05/20/24 guaifenesin 600 mg tablet, 1,200 mg (2 x 600 mg) PO Q12 #10 05/20/24 extended release 12 hr (Mucinex) tabs finasteride 5 mg tablet 5 mg PO DAILY #90 tabs 06/19/24 tamsulosin 0.4 mg capsule (Flomax) 0.4 mg PO DAILY #90 caps 06/19/24 Results & Data (ED) Vital Signs Vital Signs - 24 hr 01/17/25 22:10 01/17/25 22:23 01/17/25 22:24 Temperature 37.5 C Temperature Source Oral Pulse Rate 90 82 Pulse Rhythm Regular Pulse Strength Normal Respiratory Rate 18 Respiratory Effort / Characteristics Non-Labored Spontaneous Respiratory Depth Normal Respiratory Pattern Regular Blood Pressure 144/71 H Blood Pressure Mean 95 Blood Pressure Position Sitting Pulse Oximetry 96 96 Oxygen Delivery Method Nasal Cannula Nasal Cannula Oxygen Flow Rate 3 3 Sepsis Recent Fever Within 48 Hours No Sepsis New/Unexplained Change in Mental Status No Sepsis Action Taken by Nursing No Action Required Laboratory Data 01/17/25 22:57 01/17/25 22:57 Lab Results 01/17/25 Range/Units 22:57 WBC 7.70 (4.8-10.8) K/ul RBC 3.50 L (4.70-6.10) M/uL Hgb 11.5 L (14.0-18.0) g/dl Hct 35.0 L (42.0-52.0) % MCV 100.0 (80.0-100.0) fL MCH 32.9 (25.0-34.0) pg MCHC 32.9 (32.0-36.0) g/dL RDW Std Deviation 47.6 H (36.4-46.3) fL RDW Coeff of Best 13.0 (11.5-14.5) % Plt Count 126 L (130-400) K/uL MPV 12.2 (9.4-12.4) fL Immature Gran % (Auto) 0.3 % Neut % (Auto) 80.3 % Lymph % (Auto) 7.4 % [place] % (Auto) 9.6 % Eos % (Auto) 1.9 % Baso % (Auto) 0.5 % Neut # (Auto) 6.18 (1.40-6.50) K/uL Lymph # (Auto) 0.57 L (1.20-3.40) K/uL [place] # (Auto) 0.74 H (0.11-0.59) K/uL Eos # (Auto) 0.15 (0.00-0.50) K/uL Baso # (Auto) 0.04 (0.00-0.20) K/uL Immature Gran # (Auto) 0.02 (0.01-0.20) K/uL PT 10.8 (9.0-12.0) Seconds INR 1.0 (0.9-1.1) Sodium 140 (136-145) mmol/L Potassium 3.9 (3.5-5.1) mmol/L Chloride 99 (98-107) mmol/L Carbon Dioxide 37 H (21-32) mmol/L Anion Gap 4 (3-11) BUN 18 (6-23) mg/dl Creatinine 0.79 (0.6-1.4) mg/dl Est Cr Clr Drug Dosing 71.4 ml/min eGFR 93.22 BUN/Creatinine Ratio 22.8 H (10-20) Glucose 104 H (70-99(Fasting)) mg/dl Calcium 9.4 (8.6-10.3) mg/dl Total Bilirubin 0.4 (0.2-1.0) mg/dl AST 16 (13-39) U/L ALT 10 (7-52) U/L Alkaline Phosphatase 73 (34-104) U/L Total Protein 6.4 (6.0-8.3) gm/dl Albumin 3.7 (3.4-5.0) gm/dl Globulin 2.7 (2.5-4.0) gm/dl Albumin/Globulin Ratio 1.4 (0.9-2) Lipase 9 L (11-82) U/L Administered Medications Discontinued Medications Sodium Chloride (Nss) 500 mls @ 999 mls/hr IV .Q31M STA Stop: 01/17/25 22:54 Last Infusion: 01/17/25 23:36 Dose: Infused Documented By: Admin: 01/17/25 23:10 Dose: 999 mls/hr Documented By: REGLA Imaging Data Radiologist's Impression: Chest X-Ray 01/17/25 22:24 Exam(s): XR CXR 1 VIEW EXAM: XR Chest, 1 View CLINICAL HISTORY: Reason for exam: fall. TECHNIQUE: Frontal view of the chest. COMPARISON: 05/18/2024 FINDINGS: Lungs: No consolidation. No overt edema. Pleural space: No pleural effusion. No pneumothorax. Heart: Unremarkable. No cardiomegaly. Bones/joints: Bilateral reverse shoulder arthroplasties. No radiographically evident fracture. IMPRESSION: No acute findings in the chest. Electronically signed by: Luis Maldonado MD 01/17/25 23:22 PM Hip/Pelvis X-Ray 01/17/25 22:24 Exam(s): XR BILATERAL HIP + PELVIS, 2-3 views EXAM: XR Bilateral Hips With Pelvis When Performed, 2 or 3 Views CLINICAL HISTORY: Reason for exam: fall. TECHNIQUE: Three or four views of the bilateral hips with pelvis when performed. COMPARISON: No relevant prior studies available. FINDINGS: Bones/joints: No acute fracture or malalignment. IMPRESSION: No acute fracture or malalignment. Electronically signed by: Luis Maldonado MD 01/17/25 23:[address] 01/17/25 22:25 Exam(s): CT HEAD Without Contrast EXAM: CT Head Without Intravenous Contrast CLINICAL HISTORY: Reason for exam: fall. TECHNIQUE: Axial computed tomography images of the head/brain without intravenous contrast. CTDI is 38.17 mGy and DLP is 624.41 mGy-cm. Automated exposure control was utilized for the study. A dose lowering technique was utilized adhering to the principles of ALARA. COMPARISON: Head CT 08/26/2008 FINDINGS: Brain: No intracranial hemorrhage. Dural based mass arising from the left parietal falx measuring 1.1 cm with edema in the adjacent left parietal cortex. Ventricles: Unremarkable. Bones/joints: Unremarkable. No fracture. Soft tissues: Unremarkable.. Sinuses: No acute sinusitis. Mastoid air cells: Unremarkable as visualized. IMPRESSION: 1. No intracranial hemorrhage. 2. 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 Electronically signed by: Luis Maldonado MD 01/17/25 23:[address] 01/17/25 23:42 EXAM: CT hip RT wo con CLINICAL HISTORY: Fall, pain, can not walk. TECHNIQUE: Multiple, contiguous, nonenhanced CT scans of the right hip joint in the axial plane with multiplanar reconstructions. One of the following dose reduction techniques was utilized for this exam: Automated exposure control, adjustment of the mA and/or kV according to patient size, and use of iterative reconstruction. CTDI: 25.05 mGy, DLP: 426.12 mGy*cm. COMPARISON: None. FINDINGS: Bones: Acute undisplaced fracture of the right superior pubic ramus, with fracture line extending up to the anterosuperior wall of the acetabulum. Acute undisplaced fracture of the right inferior pubic ramus. Diffuse osteopenic changes noted. Joints: Mild right hip osteoarthritic changes in the form of osteophytic lipping. Soft Tissues: Subcutaneous fat stranding in the right gluteal region. Additional Findings: Atheromatous vascular calcification noted. Uncomplicated diverticulosis in the visualized colon. The prostate is significantly enlarged, measuring 15 x 60 x 54 mm. IMPRESSION: 1. Acute undisplaced fracture of the right superior pubic ramus, with fracture line extending up to the anterosuperior wall of the acetabulum. 2. Acute undisplaced fracture of the right inferior pubic ramus. Electronically signed by Hernandez Haynes 01-18-2025 01:17 AM Discharge Plan Visit Data Chief Complaint: Fall Stated Complaint: fall ED Provider: Curt Hand Discharge Problem: Closed pelvic fracture Patient Disposition: Admitted As Inpatient Condition: Fair Forms Stand Alone Forms: My [facility] Prescriptions Prescriptions: No Action finasteride 5 mg tablet 5 mg PO DAILY Qty: 90 3RF tamsulosin [Flomax] 0.4 mg capsule 0.4 mg PO DAILY Qty: 90 3RF lisinopril [Zestril] 5 mg tablet 5 mg PO QPM 30 Days Qty: 30 11RF atorvastatin 80 mg tablet 80 mg PO QAM metoprolol succinate [Toprol XL] 50 mg tablet extended release 24 hr 50 mg PO QAM clopidogrel [Plavix] 75 mg tablet 75 mg PO QAM Hold Instructions: Provider's Order - patient states he stopped this but history of stent placement please discuss with construction specialist/PCP Stiolto Respimat 2.5-2.5 mcg/actuation Mist 2 puff INHALATION DAILY aspirin 81 mg Tablet,Chewable 81 mg PO DAILY folic acid 1 mg Tablet 1 mg PO DAILY guaifenesin [Mucinex] 600 mg Tablet Extended Release 12hr 1,200 mg PO Q12 Qty: 10 0RF dexamethasone 2 mg tablet See Taper PO DAILY Qty: 9 0RF Taper: Taper, Blank 4 mg DAILY for 3 Days 2 mg DAILY for 3 Days albuterol sulfate [Ventolin HFA] 90 mcg/actuation HFA aerosol inhaler 2 puff inhalation QID PRN (Reason: shortness of breath or wheezing) rosuvastatin 40 mg Tablet 40 mg PO HS nitroglycerin 0.4 mg Tablet, Sublingual 0.4 mg sublingual UD PRN (Reason: Chest Pain) Rx Instructions: ONE TABLET, UNDER THE TONGUE, EVERY 5 MINUTES X THREE. Referrals Referrals: [facility] [Primary Care Provider] - Discharge Problem: Closed pelvic fracture Qualifiers: Encounter type: initial encounter Pelvic bone location: other part of pelvis Q ualified Code(s): S32.89XA - Fracture of other parts of pelvis, initial encounter for closed fracture
[2025-01-17] MEDS: SODIUM CHLORIDE 0.9% 500 ML IV STA (23:10)
--- NOTE | 2025-01-17 23:24 | XRay Report ---
Exam(s): XR CXR 1 VIEW EXAM: XR Chest, 1 View CLINICAL HISTORY: Reason for exam: fall. TECHNIQUE: Frontal view of the chest. COMPARISON: 05/18/2024 FINDINGS: Lungs: No consolidation. No overt edema. Pleural space: No pleural effusion. No pneumothorax. Heart: Unremarkable. No cardiomegaly. Bones/joints: Bilateral reverse shoulder arthroplasties. No radiographically evident fracture. IMPRESSION: No acute findings in the chest. Electronically signed by: Luis Maldonado MD 01/17/25 23:22 PM
--- NOTE | 2025-01-17 23:25 | XRay Report ---
Exam(s): XR BILATERAL HIP + PELVIS, 2-3 views EXAM: XR Bilateral Hips With Pelvis When Performed, 2 or 3 Views CLINICAL HISTORY: Reason for exam: fall. TECHNIQUE: Three or four views of the bilateral hips with pelvis when performed. COMPARISON: No relevant prior studies available. FINDINGS: Bones/joints: No acute fracture or malalignment. IMPRESSION: No acute fracture or malalignment. Electronically signed by: Luis Maldonado MD 01/17/25 23:23 PM
--- NOTE | 2025-01-17 23:27 | CT Scan Report ---
Exam(s): CT HEAD Without Contrast EXAM: CT Head Without Intravenous Contrast CLINICAL HISTORY: Reason for exam: fall. TECHNIQUE: Axial computed tomography images of the head/brain without intravenous contrast. CTDI is 38.17 mGy and DLP is 624.41 mGy-cm. Automated exposure control was utilized for the study. A dose lowering technique was utilized adhering to the principles of ALARA. COMPARISON: Head CT 08/26/2008 FINDINGS: Brain: No intracranial hemorrhage. Dural based mass arising from the left parietal falx measuring 1.1 cm with edema in the adjacent left parietal cortex. Ventricles: Unremarkable. Bones/joints: Unremarkable. No fracture. Soft tissues: Unremarkable.. Sinuses: No acute sinusitis. Mastoid air cells: Unremarkable as visualized. IMPRESSION: 1. No intracranial hemorrhage. 2. 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 Electronically signed by: Luis Maldonado MD 01/17/25 23:26 PM
[2025-01-17 23:41] LABS: Hematocrit (blood only) 35.0 % (42.0-52.0); Hemoglobin 11.5 g/dl (14.0-18.0); Immature Granulocytes # (auto) 0.02 K/uL (0.01-0.20); Immature Granulocytes % (auto) 0.3 %; Mean Corpuscular Hemoglobin 32.9 pg (25.0-34.0); Mean Corpuscular Volume 100.0 fL (80.0-100.0); Platelet Count 126 K/uL (130-400); RDW Standard Deviation 47.6 fL (36.4-46.3); Red Blood Count 3.50 M/uL (4.70-6.10); White Blood Count 7.70 K/ul (4.8-10.8)
[2025-01-17 23:58] LABS: Alanine Aminotransferase 10.0 U/L (7-52); Albumin Globulin Ratio 1.4 (0.9-2); Alkaline Phosphatase 73.0 U/L (34-104); Anion Gap 4.0 (3-11); Bilirubin,Total 0.4 mg/dl (0.2-1.0); Blood Urea Nitrogen 18.0 mg/dl (6-23); Calcium 9.4 mg/dl (8.6-10.3); Carbon Dioxide 37.0 mmol/L (21-32); Chloride 99.0 mmol/L (98-107); Creatinine Clr Calc Pharmacy 71.4 ml/min; Globulin 2.7 gm/dl (2.5-4.0); Glucose 104.0 mg/dl (70-99(Fasting)); Lipase 9.0 U/L (11-82); Potassium 3.9 mmol/L (3.5-5.1); Sodium 140.0 mmol/L (136-145); Total Protein 6.4 gm/dl (6.0-8.3)
[2025-01-18 00:12] LABS: INR 1.0 (0.9-1.1); Prothrombin Time 10.8 Seconds (9.0-12.0)
--- NOTE | 2025-01-18 01:20 | CT Scan Report ---
EXAM: CT hip RT wo con CLINICAL HISTORY: Fall, pain, can not walk. TECHNIQUE: Multiple, contiguous, nonenhanced CT scans of the right hip joint in the axial plane with multiplanar reconstructions. One of the following dose reduction techniques was utilized for this exam: Automated exposure control, adjustment of the mA and/or kV according to patient size, and use of iterative reconstruction. CTDI: 25.05 mGy, DLP: 426.12 mGy*cm. COMPARISON: None. FINDINGS: Bones: Acute undisplaced fracture of the right superior pubic ramus, with fracture line extending up to the anterosuperior wall of the acetabulum. Acute undisplaced fracture of the right inferior pubic ramus. Diffuse osteopenic changes noted. Joints: Mild right hip osteoarthritic changes in the form of osteophytic lipping. Soft Tissues: Subcutaneous fat stranding in the right gluteal region. Additional Findings: Atheromatous vascular calcification noted. Uncomplicated diverticulosis in the visualized colon. The prostate is significantly enlarged, measuring 15 x 60 x 54 mm. IMPRESSION: 1. Acute undisplaced fracture of the right superior pubic ramus, with fracture line extending up to the anterosuperior wall of the acetabulum. 2. Acute undisplaced fracture of the right inferior pubic ramus. Electronically signed by Hernandez Haynes 01-18-2025 01:17 AM
--- NOTE | 2025-01-18 01:49 | History & Physical Report ---
Date of Service January 18, 2025 Assessment & Plan (1) Closed pelvic fracture: (2) Chronic systolic CHF (congestive heart failure): (3) COPD (chronic obstructive pulmonary disease): (4) S/P drug eluting coronary stent placement: (5) Hyperlipemia: (6) HTN (hypertension): Plan 74yo male presenting with right buttock/hip and leg pain following a fall 3 days ago. Patient found to have closed pelvic fracture, difficulty ambulating #Closed pelvic fracture -Admit to medical -Scheduled Tylenol 1gm po TID with Oxycodone PRN moderate pain and IV Morphine PRN severe pain -Zofran PRN -Colace, Miralax PRN -Ortho consultation appreciated -PT/OT evaluation appreciated #Chronic systolic CHF - compensated -Continue Metoprolol #COPD - chronic stable SOB at baseline. Adequate oxygenation on 3L -Continue supplemental O2 -Albuterol PRN #CAD -Continue ASA 81mg daily -Continue Zetia and Crestor -Continue Metoprolol #Hypertension -Continue Metoprolol #BPH -Continue Finasteride and Flomax History of Present Illness Chief Complaint: fall, hip pain Primary Care Provider: [facility] Altagracia Burroughs is a 74yo male with history of chronic hypoxic respiratory failure secondary to COPD on 3L O2, HTN, CAD presenting after a fall. On 01/14/25 patient was walking into his camp when he fell backwards and landed on his buttock. He was unable to get up due to pain and laid on the ground for approximately 1 hour until family could come and get him off the ground. He denies head trauma or LOC. He has had ongoing pain in the right hip and buttock area and leg pain in the right leg. No additional complaints at this time. Denies fever, chills, cough, chest pain, abdominal pain, nausea, vomiting, diarrhea In the ER he is afebrile, HD stable Allergies Allergy/AdvReac Type Severity Reaction Status Date / Time clopidogrel [From Plavix] AdvReac Severe SHORT OF Verified 06/16/24 08:58 BREATH PER PT. Home Medications Medication Instructions Recorded Confirmed Type lisinopril 5 mg tablet (Zestril) 5 mg PO QPM 30 days #30 tabs 03/07/20 06/16/24 Rx atorvastatin 80 mg tablet 80 mg PO QAM 07/18/20 06/16/24 History metoprolol succinate 50 mg 50 mg PO QAM 07/18/20 01/18/25 History tablet,extended release 24 hr (Toprol XL) tiotropium 2.5 mcg-olodaterol 2.5 2 puff inhalation DAILY 05/21/22 06/16/24 History mcg/actuation mist for inhalation (Stiolto Respimat) aspirin 81 mg chewable tablet 81 mg PO DAILY 05/18/24 01/18/25 History folic acid 1 mg tablet 1 mg PO DAILY 05/18/24 01/18/25 History dexamethasone 2 mg tablet See Taper PO DAILY #9 tabs 05/20/24 06/16/24 Rx guaifenesin 600 mg tablet, 1,200 mg (2 x 600 mg) PO Q12 #10 05/20/24 06/16/24 Rx extended release 12 hr (Mucinex) tabs finasteride 5 mg tablet 5 mg PO DAILY #90 tabs 06/19/24 01/18/25 Rx tamsulosin 0.4 mg capsule (Flomax) 0.4 mg PO DAILY #90 caps 06/19/24 01/18/25 Rx albuterol sulfate 90 mcg/actuation 2 puff inhalation QID PRN 01/18/25 01/18/25 History aerosol inhaler (Ventolin HFA) shortness of breath or wheezing cholecalciferol (vitamin D3) 25 25 mcg PO DAILY 01/18/25 01/18/25 History mcg (1,000 unit) tablet ezetimibe 10 mg PO DAILY 01/18/25 01/18/25 History nitroglycerin 0.4 mg sublingual 0.4 mg sublingual UD PRN Chest Pain 01/18/25 01/18/25 History tablet rosuvastatin 40 mg tablet 40 mg PO HS 01/18/25 01/18/25 History Past Med/Surg History Problem List Closed pelvic fracture (Acute) Urinary retention BPH NOS w ur obs/LUTS Chronic systolic CHF (congestive heart failure) Acute hypoxic respiratory failure Right rotator cuff tear arthropathy No pertinent past surgical history Acute ST elevation myocardial infarction (STEMI) of inferior wall Cigarette smoker Encounter for pre-operative examination Left rotator cuff tear arthropathy Hypoxia (Acute) Status post reverse arthroplasty of left shoulder 5/20/21 LMA#5 + PNB. Hyperlipemia S/P PTCA (percutaneous transluminal coronary angioplasty) S/P drug eluting coronary stent placement COPD (chronic obstructive pulmonary disease) (Acute) controlled, stable per pt Medical History Coronavirus infection Pneumonia Hypoxia CAD (coronary artery disease) s/p STEMI with MARIA GUADALUPE x 2-Cx and RCA 02/23/20 History of [place] (myocardial infarction) 02/2020 (treated at [facility]) s/p MARIA GUADALUPE x2, Cx and RCA. Completed at-home cardiac rehab. [facility] [place] [facility] . Ischemic cardiomyopathy EF 40-45% on echo 02/22/20. HTN (hypertension) controlled, stable per pt Admitted to intensive care unit Surgical History History of tooth extraction History of surgical amputation of finger History of repair of right rotator cuff History of colonoscopy History of cardiac catheterization s/p STEMI with MARIA GUADALUPE x 2 02/23/20 Cx and RCA; LM -medium caliber, angiographically normal LAD -medium caliber vessel, proximal luminal irregularities, 20 to 30% mid stenosis at takeoff of second diagonal. Distal luminal regularities 60% apex. Medium caliber second diagonal without significant disease. Circumflex -medium caliber, 70% mid segment stenosis. Medium caliber OM 2 without significant disease RCA -dominant, calcified, 30 to 40% proximal, diffuse 40%/ectatic disease in the midsegment prior to 100% latemid 100% acute on chronic occlusion. Distal vessel partially fills via [id number] collaterals. Family History Other No family history of adverse response to anesthesia No pertinent family history Social History Smoking Status: Current every day smoker Tobacco Type: Cigarettes Cigarettes Per Day: 10 per day- advised; Second Hand Exposure: Yes; Do You Dip or Chew Tobacco: No; Hx Alcohol Use: No Hx Substance Use: No Preferred Language: Mohawk Communication Ability: Effective Visual Impairment: No Limitations Hearing Ability: Normal Dial Printer Required: No Beliefs That Will Affect Care: None marital status: marital status details: Current Living Situation: Spouse current occupational status: retired Feels Safe at Home: Yes Assistive Devices: Cane and Walker Review of Systems Review of Systems: All systems reviewed & are unremarkable except as noted in HPI & below Physical Exam Physical Exam: General: patient resting comfortably, NAD, non-toxic in appearance, AA&O x 4 Skin: warm, dry, intact, no rashes or lesions HEENT: NC/AT, PERRL, EOMI, anicteric sclera, conjunctiva without injection, external ear normal to inspection and nontender, nares patent, moist mucus membranes, dentition intact, no oropharyngeal lesions, neck supple, trachea midline, no LAD, no thyromegaly, no JVD Heart: +S1/S2, regular, no m/r/g Lungs: equal air entry bilaterally, no rales/rhonchi/wheezes Abd: +BS, soft, NT/ND, no masses/organomegaly/ascites Ext: warm, 2+ pulses in UE/LE bilaterally, no clubbing/cyanosis or edema Neuro: nonfocal, patient AA&O x 4, speech intact, no facial droop, moving all extremities on command with equal strength 5/5 Results & Data Results & Data Vital Signs (Past 12 Hours) Vital Signs Temp Pulse Resp BP Pulse Ox O2 Del Method O2 Flow Rate 01/17/25 22:24 96 Nasal Cannula 3 01/17/25 22:23 82 01/17/25 22:10 37.5 C 90 18 144/71 H 96 Nasal Cannula 3 Laboratory Results Laboratory Results WBC 7.70 K/ul (4.8-10.8) 01/17/25 22:57 RBC 3.50 M/uL (4.70-6.10) L 01/17/25 22:57 Hgb 11.5 g/dl (14.0-18.0) L 01/17/25 22:57 Hct 35.0 % (42.0-52.0) L 01/17/25 22:57 MCV 100.0 fL (80.0-100.0) 01/17/25 22:57 MCH 32.9 pg (25.0-34.0) 01/17/25 22:57 MCHC 32.9 g/dL (32.0-36.0) 01/17/25 22:57 RDW Std Deviation 47.6 fL (36.4-46.3) H 01/17/25 22:57 RDW Coeff of Best 13.0 % (11.5-14.5) 01/17/25 22:57 Plt Count 126 K/uL (130-400) L 01/17/25 22:57 MPV 12.2 fL (9.4-12.4) 01/17/25 22:57 Immature Gran % (Auto) 0.3 % 01/17/25 22:57 Neut % (Auto) 80.3 % 01/17/25 22:57 Lymph % (Auto) 7.4 % 01/17/25 22:57 [place] % (Auto) 9.6 % 01/17/25 22:57 Eos % (Auto) 1.9 % 01/17/25 22:57 Baso % (Auto) 0.5 % 01/17/25 22:57 Neut # (Auto) 6.18 K/uL (1.40-6.50) 01/17/25 22:57 Lymph # (Auto) 0.57 K/uL (1.20-3.40) L 01/17/25 22:57 [place] # (Auto) 0.74 K/uL (0.11-0.59) H 01/17/25 22:57 Eos # (Auto) 0.15 K/uL (0.00-0.50) 01/17/25 22:57 Baso # (Auto) 0.04 K/uL (0.00-0.20) 01/17/25 22:57 Immature Gran # (Auto) 0.02 K/uL (0.01-0.20) 01/17/25 22:57 PT 10.8 Seconds (9.0-12.0) 01/17/25 22:57 INR 1.0 (0.9-1.1) 01/17/25 22:57 Sodium 140 mmol/L (136-145) 01/17/25 22:57 Potassium 3.9 mmol/L (3.5-5.1) 01/17/25 22:57 Chloride 99 mmol/L (98-107) 01/17/25 22:57 Carbon Dioxide 37 mmol/L (21-32) H 01/17/25 22:57 Anion Gap 4 (3-11) 01/17/25 22:57 BUN 18 mg/dl (6-23) 01/17/25 22:57 Creatinine 0.79 mg/dl (0.6-1.4) 01/17/25 22:57 Est Cr Clr Drug Dosing 71.4 ml/min 01/17/25 22:57 eGFR 93.22 01/17/25 22:57 BUN/Creatinine Ratio 22.8 (10-20) H 01/17/25 22:57 Glucose 104 mg/dl (70-99(Fasting)) H 01/17/25 22:57 Calcium 9.4 mg/dl (8.6-10.3) 01/17/25 22:57 Total Bilirubin 0.4 mg/dl (0.2-1.0) 01/17/25 22:57 AST 16 U/L (13-39) 01/17/25 22:57 ALT 10 U/L (7-52) 01/17/25 22:57 Alkaline Phosphatase 73 U/L (34-104) 01/17/25 22:57 Total Protein 6.4 gm/dl (6.0-8.3) 01/17/25 22:57 Albumin 3.7 gm/dl (3.4-5.0) 01/17/25 22:57 Globulin 2.7 gm/dl (2.5-4.0) 01/17/25 22:57 Albumin/Globulin Ratio 1.4 (0.9-2) 01/17/25 22:57 Lipase 9 U/L (11-82) L 01/17/25 22:57 Impressions Chest X-Ray 01/17/25 22:24 Exam(s): XR CXR 1 VIEW EXAM: XR Chest, 1 View CLINICAL HISTORY: Reason for exam: fall. TECHNIQUE: Frontal view of the chest. COMPARISON: 05/18/2024 FINDINGS: Lungs: No consolidation. No overt edema. Pleural space: No pleural effusion. No pneumothorax. Heart: Unremarkable. No cardiomegaly. Bones/joints: Bilateral reverse shoulder arthroplasties. No radiographically evident fracture. IMPRESSION: No acute findings in the chest. Electronically signed by: Luis Maldonado MD 01/17/25 23:22 PM Hip/Pelvis X-Ray 01/17/25 22:24 Exam(s): XR BILATERAL HIP + PELVIS, 2-3 views EXAM: XR Bilateral Hips With Pelvis When Performed, 2 or 3 Views CLINICAL HISTORY: Reason for exam: fall. TECHNIQUE: Three or four views of the bilateral hips with pelvis when performed. COMPARISON: No relevant prior studies available. FINDINGS: Bones/joints: No acute fracture or malalignment. IMPRESSION: No acute fracture or malalignment. Electronically signed by: Luis Maldonado MD 01/17/25 23:[address] 01/17/25 22:25 Exam(s): CT HEAD Without Contrast EXAM: CT Head Without Intravenous Contrast CLINICAL HISTORY: Reason for exam: fall. TECHNIQUE: Axial computed tomography images of the head/brain without intravenous contrast. CTDI is 38.17 mGy and DLP is 624.41 mGy-cm. Automated exposure control was utilized for the study. A dose lowering technique was utilized adhering to the principles of ALARA. COMPARISON: Head CT 08/26/2008 FINDINGS: Brain: No intracranial hemorrhage. Dural based mass arising from the left parietal falx measuring 1.1 cm with edema in the adjacent left parietal cortex. Ventricles: Unremarkable. Bones/joints: Unremarkable. No fracture. Soft tissues: Unremarkable.. Sinuses: No acute sinusitis. Mastoid air cells: Unremarkable as visualized. IMPRESSION: 1. No intracranial hemorrhage. 2. 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 Electronically signed by: Luis Maldonado MD 01/17/25 23:[address] 01/17/25 23:42 EXAM: CT hip RT wo con CLINICAL HISTORY: Fall, pain, can not walk. TECHNIQUE: Multiple, contiguous, nonenhanced CT scans of the right hip joint in the axial plane with multiplanar reconstructions. One of the following dose reduction techniques was utilized for this exam: Automated exposure control, adjustment of the mA and/or kV according to patient size, and use of iterative reconstruction. CTDI: 25.05 mGy, DLP: 426.12 mGy*cm. COMPARISON: None. FINDINGS: Bones: Acute undisplaced fracture of the right superior pubic ramus, with fracture line extending up to the anterosuperior wall of the acetabulum. Acute undisplaced fracture of the right inferior pubic ramus. Diffuse osteopenic changes noted. Joints: Mild right hip osteoarthritic changes in the form of osteophytic lipping. Soft Tissues: Subcutaneous fat stranding in the right gluteal region. Additional Findings: Atheromatous vascular calcification noted. Uncomplicated diverticulosis in the visualized colon. The prostate is significantly enlarged, measuring 15 x 60 x 54 mm. IMPRESSION: 1. Acute undisplaced fracture of the right superior pubic ramus, with fracture line extending up to the anterosuperior wall of the acetabulum. 2. Acute undisplaced fracture of the right inferior pubic ramus. Electronically signed by Hernandez Haynes 01-18-2025 01:17 AM Code Status & VTE Plan VTE Prophylaxis Plan VTE Prophylaxis will be ordered: No PG Care Time/CCT Total # of Minutes Spent Total Time Spent with Patient: Total time spent is greater than 50% in coordination of care (as documented) at patient's floor/unit and/or counseling patient: Coding Level of Care Code 79741 INT INP/OBS CARE 3/75MIN Diagnoses Closed pelvic fracture S32.89XA Encounter type: initial encounter Pelvic bone location: other part of pelvis Chronic systolic CHF (congestive heart failure) I50.22 COPD (chronic obstructive pulmonary disease) J44.9 COPD type: unspecified COPD S/P drug eluting coronary stent placement Z95.5 Hyperlipemia E78.5 HTN (hypertension) I10 (1) Closed pelvic fracture Encounter type: initial encounter Pelvic bone location: other part of pelvis Qualified Code(s): S32.89XA - Fracture of other parts of pelvis, initial encounter for closed fracture (3) COPD (chronic obstructive pulmonary disease) COPD type: unspecified COPD Qualified Code(s): J44.9 - Chronic obstructive pulmonary disease, unspecified
[2025-01-18] MEDS: MoRPHine SULFATE 4 MG/ML 1 ML CARP\\VIAL IV STA (02:31)
[2025-01-18] MEDS: ONDANSETRON INJ 2 MG/ML 2 ML VIAL IV STA (02:31)
[2025-01-18] MEDS ORDERED: POLYETHYLENE (MIRALAX) 17 GM PACK PO PRN (03:16)
[2025-01-18] MEDS ORDERED: DOCUSATE SODIUM 100 MG CAP PO PRN (03:16)
[2025-01-18] MEDS ORDERED: ALBUTEROL HFA 8 GM INHALER INH PRN (03:16)
[2025-01-18] MEDS ORDERED: ONDANSETRON INJ 2 MG/ML 2 ML VIAL IV PRN (03:16)
[2025-01-18] MEDS ORDERED: MoRPHine SULFATE 2 MG/ML CARP IV PRN (03:16)
[2025-01-18] MEDS: LACTATED RINGER'S 1,000 ML IV SCH (04:25)
[2025-01-18 08:36] VITALS: TEMP 98.2
[2025-01-18] MEDS: ACETAMINOPHEN 500 MG TAB PO SCH (08:37)
[2025-01-18] MEDS: FINASTERIDE 5 MG TAB PO SCH (08:40)
[2025-01-18] MEDS: ASPIRIN 81 MG CHEW PO SCH (08:40)
[2025-01-18] MEDS: METOPROLOL SUCC 50MG EXT REL TAB PO SCH (08:41)
[2025-01-18] MEDS: EZETIMIBE 10 MG TAB PO SCH (08:42)
[2025-01-18] MEDS: NICOTINE 14 MG/24 HR PATCH TD SCH (08:46)
[2025-01-18] MEDS: TAMSULOSIN HCL 0.4 MG CAP PO SCH (08:50)
[2025-01-18] MEDS: REMOVE NICODERM PATCH SCH (10:13)
--- NOTE | 2025-01-18 10:59 | Orthopedic Consultation ---
Date of Consultation January 18, 2025 Assessment & Plan (1) Closed fracture of ramus of right pubis: The patient was educated regarding today's findings. Conservative care measures were discussed. He does not require surgical intervention. The patient can be weightbearing as tolerated using a walker. He will likely require physical therapy for education and assistance. The patient is very skeptical of PT. He states he went to therapy for his shoulders and it did nothing for him. He states he does not need PT and can do any exercises on his own. The importance of being taught the proper exercises and the assistance of a therapist was discussed at length. He states he will except home health, but will not go to outpatient PT. He is willing to start therapy here in the hospital. Follow-up in the office as an outpatient in 2 weeks for reimaging. Continue oral pain medication as needed. Will continue to follow while he is admitted. Supervising Physician Co-Signing Physician Notes I reviewed the patient's x-rays and CT scan, medical records, formulated the above plan and performed the substantive portion of the visit. Agree with above note. WBAT with walker. F/U with PA in Ortho clinic in 2 weeks. History of Present Illness Reason for Consultation: Right pubic rami fracture Attending Physician: Kristian Villa MD History of Present Illness This 74 old male presents to the ED with complaints of right hip and pelvic pa in. The patient states he fell walking into his camp 5 days ago. He attempted to grab for the door handle, and when he opened the door, he fell backwards, landing on his buttock. He did not strike his head. He has had ambulatory difficulty since then. He states he is able to stand, but has severe difficulty attempting to take a step. He has been using a maine pot for voiding symptoms that he did not have to walk for. He denies any numbness or tingling. After several days of no improvement, he came to the ED for evaluation. No prior history of significant hip injury. No additional complaints. Allergies Allergy/AdvReac Type Severity Reaction Status Date / Time ciprofloxacin [From Cipro] Allergy Unknown Verified 01/18/25 02:34 clopidogrel [From Plavix] AdvReac Severe SHORT OF Verified 01/18/25 02:33 BREATH PER PT. Home Medications Medication Instructions Recorded Confirmed Type metoprolol succinate 50 mg 50 mg PO QAM 07/18/20 01/18/25 History tablet,extended release 24 hr (Toprol XL) tiotropium 2.5 mcg-olodaterol 2.5 2 puff inhalation DAILY 05/21/22 01/18/25 History mcg/actuation mist for inhalation (Stiolto Respimat) aspirin 81 mg chewable tablet 81 mg PO DAILY 05/18/24 01/18/25 History folic acid 1 mg tablet 1 mg PO DAILY 05/18/24 01/18/25 History finasteride 5 mg tablet 5 mg PO DAILY #90 tabs 06/19/24 01/18/25 Rx tamsulosin 0.4 mg capsule (Flomax) 0.4 mg PO DAILY #90 caps 06/19/24 01/18/25 Rx acetaminophen 500 mg tablet 1,000 mg (2 x 500 mg) PO TID fever 01/18/25 Rx #90 tabs albuterol sulfate 90 mcg/actuation 2 puff inhalation QID PRN 01/18/25 01/18/25 History aerosol inhaler (Ventolin HFA) shortness of breath or wheezing cholecalciferol (vitamin D3) 25 25 mcg PO DAILY 01/18/25 01/18/25 History mcg (1,000 unit) tablet ezetimibe 10 mg tablet (Zetia) 10 mg PO DAILY 01/18/25 01/18/25 History nitroglycerin 0.4 mg sublingual 0.4 mg sublingual UD PRN Chest Pain 01/18/25 01/18/25 History tablet rosuvastatin 40 mg tablet 40 mg PO HS 01/18/25 01/18/25 History tramadol 50 mg tablet 50 mg PO BID PRN Pain 01/18/25 01/18/25 History Patient History Medical History Coronavirus infection Pneumonia Hypoxia CAD (coronary artery disease) s/p STEMI with MARIA GUADALUPE x 2-Cx and RCA 02/23/[address] (myocardial infarction) 02/2020 (treated at [facility]) s/p MARIA GUADALUPE x2, Cx and RCA. Completed at-home cardiac rehab. [facility] [place] [facility] . Ischemic cardiomyopathy EF 40-45% on echo 02/22/20. HTN (hypertension) controlled, stable per pt Admitted to intensive care unit Surgical History History of tooth extraction History of surgical amputation of finger History of repair of right rotator cuff History of colonoscopy History of cardiac catheterization s/p STEMI with MARIA GUADALUPE x 2 02/23/20 Cx and RCA; LM -medium caliber, angiographically normal LAD -medium caliber vessel, proximal luminal irregularities, 20 to 30% mid stenosis at takeoff of second diagonal. Distal luminal regularities 60% apex. Medium caliber second diagonal without significant disease. Circumflex -medium caliber, 70% mid segment stenosis. Medium caliber OM 2 without significant disease RCA -dominant, calcified, 30 to 40% proximal, diffuse 40%/ectatic disease in the midsegment prior to 100% latemid 100% acute on chronic occlusion. Distal vessel partially fills via [id number] collaterals. Family History Other No family history of adverse response to anesthesia No pertinent family history Social History Smoking Status: Current every day smoker Tobacco Type: Cigarettes Cigarettes Per Day: 10 per day- advised; Second Hand Exposure: Yes; Do You Dip or Chew Tobacco: No; Hx Alcohol Use: No Hx Substance Use: No Preferred Language: Portuguese Communication Ability: Effective Visual Impairment: No Limitations Hearing Ability: Normal Memorial Designer Required: No Beliefs That Will Affect Care: None marital status: marital status details: Current Living Situation: Spouse current occupational status: retired Feels Safe at Home: Yes Safety Concerns: Feels Safe At This Time Assistive Devices: Cane, Oxygen - Continuous and Walker Review of Systems Review of Systems: All systems reviewed & are unremarkable except as noted in HPI & below Physical Exam Physical Exam: General: Frail, elderly white male, in no acute distress. Laying in bed. Alert and oriented. Conversive. Skin: Warm and dry with good turgor. No rashes. He has significant ecchymosis present at the gluteal cleft, extending into his right buttock. No open wounds. No significant edema. Musculoskeletal: The patient has discomfort with palpation over his sacrum, right gluteus, and into the ischial tuberosity. He has no current discomfort with palpation over the greater trochanter, IT band, quadricep, hamstring, or knee. He is able to actively perform a straight leg raise. Flexion of the hip to 90 degrees without difficulty. He denies any pain with logrolling of his hip. He is able to actively AB duct his leg, but states there is pain in the thigh. He points to the quadricep and IT band as the areas of discomfort. Intact motor function of his ankle and toes.He has intact motor function of the left leg without difficulty. There is no discomfort with palpation over the left leg. Neurologic: Gross sensation is intact across all dermatomes of the right leg by soft touch. Peripheral pulses are 2+. Left leg sensation is unremarkable. Results & Data Vital Signs (Past 12 Hours) Vital Signs Temp Pulse Pulse Resp BP BP Pulse Ox 01/18/25 08:51 01/18/25 08:51 36.8 C 70 18 116/67 97 01/18/25 08:36 36.8 C 01/18/25 07:28 01/18/25 07:09 67 13 92/54 L 97 01/18/25 07:00 63 01/18/25 06:02 76 18 102/56 L 96 01/18/25 04:00 70 20 110/67 97 01/18/25 02:34 73 16 104/55 L 95 01/18/25 02:30 104/55 L 97 01/18/25 01:30 114/65 97 01/18/25 01:00 17 134/58 L 96 01/18/25 00:30 92/73 L 95 01/18/25 00:00 79 19 97/67 L 97 01/17/25 23:30 76 20 115/59 L 97 01/17/25 23:00 77 20 115/68 95 01/17/25 22:54 86 20 112/67 94 O2 Del Method O2 Flow Rate 01/18/25 08:51 Nasal Cannula 01/18/25 08:51 Nasal Cannula 01/18/25 08:36 01/18/25 07:28 Nasal Cannula 4 01/18/25 07:09 Nasal Cannula 4 01/18/25 07:00 01/18/25 06:02 Nasal Cannula 4 01/18/25 04:00 Nasal Cannula 4 01/18/25 02:34 Nasal Cannula 4 01/18/25 02:30 Nasal Cannula 3 01/18/25 01:30 Nasal Cannula 3 01/18/25 01:00 Nasal Cannula 3 01/18/25 00:30 Nasal Cannula 3 01/18/25 00:00 Nasal Cannula 3 01/17/25 23:30 Nasal Cannula 3 01/17/25 23:00 Nasal Cannula 3 01/17/25 22:54 Nasal Cannula 3 Diagnostic Findings Radiographic imaging previously obtained of the pelvis and right hip was reviewed. There is a questionable fracture through the right pubic ramus. It is nondisplaced. CT scan imaging of the pelvis was also obtained. This confirms an acute nondisplaced fracture of the right superior pubic ramus, extending to the anterosuperior wall of the acetabulum. There is also a nondisplaced fracture of the right inferior pubic rami. (1) Closed fracture of ramus of right pubis Encounter type: initial encounter Qualified Code(s): S32.591A - Other specified fracture of right pubis, initial encounter for closed fracture
[2025-01-18 12:50] LABS: Hematocrit (blood only) 32.1 % (42.0-52.0); Hemoglobin 10.4 g/dl (14.0-18.0); Mean Corpuscular Hemoglobin 32.6 pg (25.0-34.0); Mean Corpuscular Volume 100.6 fL (80.0-100.0); Platelet Count 125 K/uL (130-400); RDW Standard Deviation 49.0 fL (36.4-46.3); Red Blood Count 3.19 M/uL (4.70-6.10); White Blood Count 6.54 K/ul (4.8-10.8)
--- NOTE | 2025-01-18 14:01 | Discharge Summary ---
Discharge Summary Date of Service January 18, 2025 Principal Dx & Hospital Course #1 = Principal Diagnosis (1) Closed pelvic fracture: (2) Chronic systolic CHF (congestive heart failure): (3) COPD (chronic obstructive pulmonary disease): (4) S/P drug eluting coronary stent placement: (5) Hyperlipemia: (6) HTN (hypertension): Plan Altagracia Burroughs is a 74 year old male admitted to [facility] on January 18, 2025. He was diagnosed with a pelvis fracture. He was seen by orthopedics and physical therapy and recommended using a walker, he is weight bear as tolerated. Physical therapy will be arranged to come to his house. He should follow up with orthopedics in 2 weeks. For pain he has not required any opiates during his hospitalization therefore recommend acetaminophen scheduled 1g three times a day and taking tramadol (he already has this at home) as needed on top of this. Incidental suspected meningioma was seen on CT head - recommend outpatient referral to neurosurgery for this. Notes For Next Care Provider Follow up orthopedics in 2 weeks Refer to neurosurgery for incidental dural mass - suspected meningioma Medication Changes From Visit Acetaminophen for pain Admission HPI Per Admitting Provider Altagracia Burroughs is a 74yo male with history of chronic hypoxic respiratory failure secondary to COPD on 3L O2, HTN, CAD presenting after a fall. On 01/14/25 patient was walking [place] his [place] when he fell backwards and landed on his buttock. He was unable to get up due to pain and laid on the ground for approximately 1 hour until family could come and get him off the ground. He denies head trauma or LOC. He has had ongoing pain in the right hip and buttock area and leg pain in the right leg. No additional complaints at this time. Denies fever, chills, cough, chest pain, abdominal pain, nausea, vomiting, diarrhea In the ER he is afebrile, HD stable Discharge Exam Constitutional WD/WN, vitals as above Respiratory normal respiratory effort, lungs clear to auscultation Cardiovascular RRR, no murmur, no edema Musculoskeletal normal ankle dorsi/plantarflexion and normal sensation in toes Discharge Plan Discharge Items Patient Disposition: Home - Home Health Services Reason For Visit: FALL, HIP PAIN Discharge Diagnosis: Pelvis fracture Condition on Discharge: Fair Activity: Resume your previous activity Non-emergency contact: Surgeon Call non-emergency contact if: you have any medication questions and your symptoms worsen Follow-up/Referrals: Phu George MD [Physician] - (Follow up 2 weeks) [facility] [Primary Care Provider] - Diet: Heart Healthy Addtl Attending Provider Instructions: You were admitted to [facility] on January 18, 2025. You were diagnosed with a pelvis fracture. You were seen by physical therapy and recommended using a walker. Physical therapy will be arranged to come to your house. Please follow up with orthopedics in 2 weeks. For pain recommend acetaminophen scheduled 1g three times a day and taking tramadol as needed on top of this. Pending Studies at Discharge: No Stand-Alone Forms: [facility], Smoking Cessation Medications and DC Order Prescriptions: New acetaminophen 500 mg tablet 1,000 mg PO TID Qty: 90 0RF Continued finasteride 5 mg tablet 5 mg PO DAILY Qty: 90 3RF tamsulosin [Flomax] 0.4 mg capsule 0.4 mg PO DAILY Qty: 90 3RF metoprolol succinate [Toprol XL] 50 mg tablet extended release 24 hr 50 mg PO QAM Stiolto Respimat 2.5-2.5 mcg/actuation Mist 2 puff INHALATION DAILY aspirin 81 mg Tablet,Chewable 81 mg PO DAILY folic acid 1 mg Tablet 1 mg PO DAILY albuterol sulfate [Ventolin HFA] 90 mcg/actuation HFA aerosol inhaler 2 puff inhalation QID PRN (Reason: shortness of breath or wheezing) rosuvastatin 40 mg Tablet 40 mg PO HS nitroglycerin 0.4 mg Tablet, Sublingual 0.4 mg sublingual UD PRN (Reason: Chest Pain) Rx Instructions: ONE TABLET, UNDER THE TONGUE, EVERY 5 MINUTES X THREE. cholecalciferol (vitamin D3) 25 mcg (1,000 unit) Tablet 25 mcg PO DAILY ezetimibe [Zetia] 10 mg Tablet 10 mg PO DAILY tramadol 50 mg Tablet 50 mg PO BID PRN (Reason: Pain) Discharge Orders: Discharge Order (Routine); Ordered 01/18/25 Ordered By: Kristian Villa Admission Data Admit Date/Time: 01/18/25 01:48 Attending Provider: Kristian Villa Admit Provider: Mary Jane Quiroz Primary Care Provider: [facility] Other Providers: Phu George; Mary Jane Quiroz Other Interventions: Discharge Summary Assessment (RN) Last Done: 01/18/25 15:23 Hospital Stay Data Consultations 01/18/25 01:37 Consult Orthopedic Surgery Routine 01/18/25 01:39 ED Decision to Admit Stat Diagnostic Imagining Performed 01/17/25 22:25 CT head/brain wo con Stat IMPRESSION: 1. No intracranial hemorrhage. 2. 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 01/17/25 23:42 CT hip RT wo con Stat IMPRESSION: 1. Acute undisplaced fracture of the right superior pubic ramus, with fracture line extending up to the anterosuperior wall of the acetabulum. 2. Acute undisplaced fracture of the right inferior pubic ramus. Pending Results Patient Have Any Pending Studies at Discharge: No Discharge Instructions Given to Patient (Per Discharging Provider) You were admitted to [facility] on January 18, 2025. You were diagnosed with a pelvis fracture. You were seen by physical therapy and recommended using a walker. Physical therapy will be arranged to come to your house. Please follow up with orthopedics in 2 weeks. For pain recommend acetaminophen scheduled 1g three times a day and taking tramadol as needed on top of this. Total Time Total Time Spent Total Time Spent (In Minutes): 35 Coding Level of Care Code 21995 INP/OBS DISCH >30 MIN Diagnoses Closed pelvic fracture S32.89XA Encounter type: initial encounter Pelvic bone location: other part of pelvis Chronic systolic CHF (congestive heart failure) I50.22 COPD (chronic obstructive pulmonary disease) J44.9 COPD type: unspecified COPD S/P drug eluting coronary stent placement Z95.5 Hyperlipemia E78.5 HTN (hypertension) I10 Home Health Attestation I certify that this patient is under my care and that I, or a physicians butcher assistant working with me, had a face to-face encounter that meets the home health [id number] encounter requirements with this patient. The encounter with the patient was in whole, or in part, for the following medical condition, which is the primary reason for home health care (list medical condition): Pelvic fracture I certify that, based on my findings, the following services are medically necessary home health services: My clinical findings support the need for the above services because: Home Safety Assessment OT Assess ADL Status and Restore Function w ADLs PT Assessment for Endurance / Balance / Strength PT Eval for Safety and Mobility PT Eval for Safety, Gait Training, Assistive Devices PT Gait and Balance Training, Strengthening and Safety Further, I certify that my clinical findings support that this patient is home bound (i.e. absences from home require considerable and taxing effort and are for medical reasons or caodaism services or infrequently or of short duration when for other reasons) because: Supportive Aid - Walker Transportation Assistance/Unable to Leave Home Unassisted Certification for Home Health Services: Based on the above findings, I certify that this patient is confined to the home and needs intermittent longterm care, physical therapy and/or speech therapy or continues to need occupational therapy. The patient is under my care, and I have initiated the establishment of the plan of care. This patient will be followed by a physician who will periodically review the plan of care.
[2025-01-18 15:21] VITALS: BP 101/57; PULSE 74; RESP 18; O2SAT 95
[2025-01-18] MEDS ORDERED: ROSUVASTATIN CALCIUM 20 MG TAB PO SCH (21:00)
--- NOTE | 2025-01-19 17:39 | Electrocardiogram Report ---
Test Reason : Blood Pressure : */* mmHG Vent. Rate : 87 BPM Atrial Rate : 87 BPM P-R Int : 144 ms QRS Dur : 88 ms QT Int : 340 ms P-R-T Axes : 86 77 53 degrees QTcB Int : 409 ms Normal sinus rhythm Normal ECG When compared with ECG of 20-May-2024 06:58, Vent. rate has increased by [address] no longer elevated in Inferior leads Confirmed by Yusuf Romano ([id number]) on 01/19/2025 5:39:08 PM Referred By: REFERRED SELF Confirmed By: Yusuf Romano
== END 2025-01-18 15:25 | disposition home health service (06) | DRG 536 ==
LOC: ED 22:03 → SUATTDRO 01-18 01:48 → EDINP 01-18 01:48